=== PATIENT | male | born 1950 | race African-American/Black ===

== ENCOUNTER 2021-11-18 09:31 | Observation (INO) ==
[2021-11-18 09:42] VITALS: BMI 19.3
[2021-11-18] MEDS ORDERED: CATAPRES TAB 0.2 MG PO ONE (09:47)
--- NOTE | 2021-11-18 09:53 | DR.HTN ---
HPI Time Seen Time Seen by Provider: 11/18/21 09:45 HPI Comment HPI Comment: A 71 y/o male presenting today with non-specific c/o. He was here late night for nausea vomiting. The family states his BP was quite high (close to 200). I'm seeing SBP in the 140s. The pt. states he has a knnown hx. of HT[facility] but he no longer takes his [facility](s). He denies headaches, visual disturbances, chest pain or SOB. He had labs done last night and had a CXR also. Complaints Chief Complaint:: Pt here with elevated blood pressure, was seen last night for n/v and cough, BP was elevated at that time as well but pt did not tell anyone he was out of his BP meds. Pt states he has been out of meds for "about a year", [facility] d/t personal smoking habits that are not recognized by the goverment. COVID-19 Coronavirus risk:travel/contact w/high risk person: No Has patient experienced Coronavirus symptoms: No Source History Provided: Patient Mode of Arrival Mode of Arrival: EMS Timing Onset of Chief Complaint: 11/17/21 Severity What was the maximum recorded B/P?: 199/112 Context Circumstances: Ran out of Medication History of: Hypertension Treatment of HTN Prior to Arrival: No Rx for HTN meds and Noncompliant Associated Signs and Symptoms HTN Associated Signs and Symptoms: None PMH PMH Past Medical History: Yes Past Medical History: Anxiety, Depression, Hypertension and SD Past Medical History Comment: cancer, possibly in the neck/throat/thyroid, pt wa s unsure Past Surgical History: No Surgical History: Unknown Family History History of Family Medical Conditions: Yes Family Medical History: Diabetes Mellitus and Hypertension Social History Alcohol Use: None Do you use any recreational Drugs:: Yes (marijuana) Lives Where: Home Travel Risk Coronavirus risk:travel/contact w/high risk person: No Has patient experienced Coronavirus symptoms: No Infectious screening Have you traveled outside the country in the last 6 months?: No Isolation: Standard ROS Review of Systems Constitutional: No Symptoms Reported Eyes: No Symptoms Reported ENTM: No Symptoms Reported Respiratoy: No Symptoms Reported Cardiovascular: No Symptoms Reported Gastrointestinal/Abdominal: No Symptoms Reported Genitourinary: No Symptoms Reported Neurological: No Symptoms Reported Musculoskeletal: No Symptoms Reported Integumentary: No Symptoms Reported Hematologic/Lymphatic: No Symptoms Reported Endocrine: No Symptoms Reported Psychiatric: No Symptoms Reported PE Vital Signs Vitals: Temperature 97.9 F Pulse Rate 79 Respiratory Rate 16 Blood Pressure [Left Arm] 134/68 Blood Pressure 199/112 O2 Sat by Pulse Oximetry 100 General Limitations: No Limitations General Appearance: Alert and In No Apparent Distress Head Head Exam: Normal Inspection, Atraumatic and Normocephalic Eyes Eye exam: Normal Appearance and EOMI ENT ENT Exam: Normal Exam, Normal Oropharynx, Normal External Ear Exam and Mucous Membranes Moist Neck Neck Exam: Normal Inspection, Full ROM and Trachea Midline Chest Chest Inspection: Normal Inspection and Symmetric Chest Wall Rise Respiratory Respiratory Exam: Normal Lung Sounds Bilat Cardiovascular Cardiovascular Exam: Regular Rate, Normal Rhythm, Normal Heart Sounds, +S1 and +S2 Abdominal Exam Abdominal Exam: Normal Inspection, Normal Bowel Sounds and Soft Extremities Extremities Exam: Normal Inspection and Full ROM Back Back Exam: Normal Inspection and Full ROM Neurologic Neurological Exam: Alert and Oriented X3 Speech: Fluid Speech Psychiatric Psychiatric Exam: Normal Affect and Normal Mood Skin Skin Exam: Intact and Other (palpable port-a-cath in subcutaneous tissue inferior to the Rt. distal clavicle.) COURSE Treatment Treatment: A call was received in the ED from Dr. Calzada's Nurse informing that the pt's. family had called into the office and that Dr. Calzada requests that he be placed in-house under his service. Reevaluation 1st: Improved Education/Counseling Education/Counseling: Patient, Family, Education and Counseling Educated On: Treatment, Diagnosis, Prognosis and Needs for Follow Up ROR EKG Rate: 61 [place]: Normal Rhythm: NSR Block: None Hypertrophy: None ST: Normal Opioid Opioid Risk Tool Age (Placido box if 16-45): No History of Preadolescent Sexual Abuse: No Total: 0 Total Score Risk Category: Low Risk Copyright: Elkin GAONA predicting aberrant behaviors Diagnosis Discharge Problem: Hypertension, uncontrolled
[2021-11-18] MEDS ORDERED: CATAPRES TAB 0.2 MG ONE (09:57)
[2021-11-18] MEDS ORDERED: NORVASC TAB 5 MG PO ONE (11:25)
[2021-11-18] MEDS ORDERED: NORVASC TAB 5 MG ONE (11:34)
[2021-11-18] MEDS ORDERED: ZOFRAN INJ 4 MG VIAL ONE (13:55)
[2021-11-18] MEDS ORDERED: ZOFRAN INJ 4 MG VIAL IVP ONE (13:59)
[2021-11-18] MEDS ORDERED: ZESTRIL TAB 20 MG PO ONE (14:00)
--- NOTE | 2021-11-18 19:23 | CT ---
HISTORYblurred vision, severe headache, left sided weaknessSTUDYBRAIN W/O CONCOMPARISONNone.TECHNIQUEMultiple axial images of the head without contrast. Dose reduction techniques including Automated Exposure Control (AEC) and adjustment of mA and kV were utilized.FINDINGSAge related cortical atrophy and chronic small vessel ischemic changes. [No acute intraparenchymal hemorrhage or mass can be identified.] [No extra-axial fluid collections are seen.] [No alteration in the attenuation of the brain parenchyma can be identified to suggest acute or subacute ischemic change.] [The ventricular system is symmetric and nondilated.] [The extracranial structures are grossly unremarkable.]IMPRESSIONNo CT evidence of acute intracranial pathology. If clinically concerned for acute ischemia/infarction, MRI of the brain is more sensitive.Electronically signed by: RAUL DENNIS (Nov 18, 2021 19:23:24)
[2021-11-19 06:22] LABS: BASOPHILS % (AUTO) 0.3 % (0.2-1.0); EOSINOPHILS % (AUTO) 0.4 % (0.9-2.9); HEMATOCRIT 42.3 % (42.0-54.0); HEMOGLOBIN 13.8 g/dL (13.5-18.0); LYMPHOCYTES # (AUTO) 1.8 X10^3/uL (1.3-2.9); LYMPHOCYTES % (AUTO) 24.1 % (21.0-51.0); MEAN CORPUSCULAR HEMOGLOBIN 25.6 pg (27.0-34.0); MEAN CORPUSCULAR HGB CONC 32.6 g/dL (33.0-35.0); MEAN CORPUSCULAR VOLUME 78.5 fL (80.0-100.0); MEAN PLATELET VOLUME 10.1 fL (7.4-11.0); MONOCYTES # (AUTO) 0.7 x10^3/uL (0.3-0.8); MONOCYTES % (AUTO) 8.8 % (0.0-13.0); NEUTROPHILS % (AUTO) 66.4 % (42.0-75.0); RED BLOOD COUNT 5.39 X10^6/uL (4.7-6.0); RED CELL DISTRIBUTION WIDTH 15.4 % (11.6-16.5); WHITE BLOOD COUNT 7.5 X10^3/uL (3.6-10.0)
[2021-11-19 06:44] LABS: ALANINE AMINOTRANSFERASE 12 Units/L (12-78); ALBUMIN 3.4 g/dL (3.4-5.0); ALKALINE PHOSPHATASE 94 Units/L (46-116); ASPARTATE AMINO TRANSFERASE 19 Units/L (15-37); BLOOD UREA NITROGEN 9 mg/dL (7-18); CARBON DIOXIDE 28.9 mmol/L (21-32); CHLORIDE 103 mmol/L (98-107); CREATININE 1.01 mg/dL (0.70-1.30); SODIUM 141 mmol/L (136-145); TOTAL PROTEIN 7.9 g/dL (6.4-8.2); eGFR NON BLACK RACES > 60 (>60)
[2021-11-19 07:01] LABS: GIANT PLATELET RARE; PLATELET MORPHOLOGY COMMENT ABNORMAL (NORMAL); TARGET CELLS PRESENT
[2021-11-19] MEDS ORDERED: ZESTRIL TAB 20 MG ONE (08:52)
[2021-11-19] MEDS ORDERED: NORVASC TAB 10 MG PO SCH (09:00)
[2021-11-19] MEDS ORDERED: ZESTRIL TAB 20 MG PO SCH (09:00)
[2021-11-19 10:50] VITALS: BP 135/104
--- NOTE | 2021-12-03 11:51 | DR.CARTERS ---
Short Stay Summary - Admission Date Date of Admission: 11/18/21 - Discharge Date Discharge Date: 11/19/21 - Admission Diagnoses (1) Hypertension, uncontrolled Status: Acute - Hospital Course Hospital Course: IS A 71 YEAR OLD BLACK MALE. HE IS A PATIENT OF THE [facility]. HE PRESENTED TO THE ER WITH COMPLAINTS OF ELEVATED BLOOD PRESSURE. HE WAS SEEN THE PREVIOUS NIGHT IN THE ER WELL FOR COMPLAINTS OF NAUSEA AND VOMITING. HIS BLOOD PRESSURE WAS ELEVATED AT THAT TIME WELL. PATIENT REPORTED THAT HE HAD BEEN OUT OF HIS BLOOD PRESSURE MEDICATIONS FOR ABOUT A YEAR. HE ALSO ADMITTED TO HEADACHE, BLURRED VISION, AND MILD LEFT SIDED WEAKNESS. HIS PMH INCLUDES HTN, ANXIETY, DEPRESSION, NH, AND CANCER. PATIENT WAS UNSURE OF WHAT TYPE OF CANCER. HE IS A DAILY USER OF [employer]. ON ARRIVAL TO THE ER, HIS VITALS WERE 97.9-79-16-100%-211/110. LABS WERE OBTAINED ON 11/17 DURING HIS ER VISIT. ABNORMAL LAB VALUES INCLUDED THE FOLLOWING: WBC 11.6, HGB 13.2, HCT 40.6, POTASSIUM 3.4, BUN 5, GLUCOSE 200, CALCIUM 8.3, ALT 10, ALBUMIN 3.2. COVID-19 NEGATIVE. A CHEST XRAY WAS OBTAINED ON 11/17 AND REVEALED: No acute cardiopulmonary findings. AN EKG WAS OBTAINED AND REVEALED: SINUS RHYTHM WITH HR 61. A BRAIN CT WAS OBTAINED AND REVEALED: Age related cortical atrophy and chronic small vessel ischemic changes. No acute intraparenchymal hemorrhage or mass can be identified. No extra-axial fluid collections are seen. No alteration in the attenuation of the brain parenchyma can be identified to suggest acute or subacute ischemic change. The ventricular system is symmetric and nondilated. The extracranial structures are grossly unremarkable. IN THE ER, HE WAS GIVEN CATAPRES 0.2MG PO X 1, NORVASC 5MG PO X 1, ZOFRAN 4MG IV X 1. BLOOD PRESSURE DECREASED TO 116/69. HE WAS ADMITTED TO THE HOSPITAL FOR FURTHER EVALUATION AND TREATMENT OF UNCONTROLLED HYPERTENSION. HE WAS STARTED ON AMLODIPINE 10MG PO DAILY, LISINOPRIL 20MG PO DAILY. OTHERWISE, WE PLANNED TO FOLLOW UP WITH AM LABS AND CONTINUE TO MONITOR. ON THE MORNING FOLLOWING ADMISSION, PATIENT WAS ALERT AND ORIENTED, LYING IN BED ON MORNING ROUNDS. HE DENIED CURRENT COMPLAINTS. ON EXAMINATION, HEART IS REGU LAR IN RATE AND RHYTHM. BILATERAL LUNGS CLEAR TO AUSCULTATION. ABDOMEN ROUND, SOFT, AND NON-TENDER WITH NORMAL BOWEL SOUNDS NOTED IN ALL QUADRANTS. HIS VITALS THIS MORNING WERE: 98.5-24-14-99-178/84. LABS WERE OBTAINED. HE REMAINED HEMODYNAMICALLY STABLE. HIS BLOOD PRESSURE REMAINED STABLE THROUGHOUT THE NIGHT AND MORNING. WE PLANNED FOR DISCHARGE. INSTRUCTIONS FOR MEDICATIONS AND FOLLOW UP WERE DISCUSSED WITH PATIENT. HE VERBALIZED UNDERSTANDING. PATIENT WILL BE DISCHARGED WITH NEW PRESCRIPTIONS FOR AMLODIPINE 10MG PO DAILY, ASPIRIN 325MG PO DAILY, LISINOPRIL 20MG PO DAILY, AND ROSUVASTATIN 10MG PO HS. HE WAS ADVISED TO FOLLOW UP IN OUR OFFICE ON 11/25/21. PATIENT DISCHARGED HOME WITH FAMILY IN STABLE CONDITION. TIME SPENT ON CLINICAL ASSESSMENT, REVIEWING LABS AND IMAGING, DECISION MAKING, DISCHARGE INSTRUCTIONS, PREPARING DISCHARGE PAPERS, AND DOCUMENTATION GREATER THAN 75 MINUTES. - Discharge Medications Discharge Medications: Home Medication List amlodipine 10 mg PO DAILY #30 tab 11/19/21 [Rx] aspirin [Ecotrin] 325 mg PO DAILY #30 tab 11/19/21 [Rx] lisinopril 20 mg PO DAILY #30 tab 11/19/21 [Rx] rosuvastatin 10 mg PO HS #30 tab 11/19/21 [Rx] Prescriptions: amlodipine Best Calzada aspirin [Ecotrin] Best Calzada lisinopril Best Calzada rosuvastatin Best Calzada - Discharge Plan Disposition: 01 HOME, SELF-CARE Condition: Stable Prescriptions: amlodipine 10 mg PO DAILY #30 tab aspirin [Ecotrin] 325 mg PO DAILY #30 tab lisinopril 20 mg PO DAILY #30 tab rosuvastatin 10 mg PO HS #30 tab - Follow up/Referrals Follow up/Referrals: Best Calzada [STAFF PHYSICIAN] - 11/25/21 1:00 pm - Instructions Instructions: How to Take Your Blood Pressure, [id number], Coronary Artery Disease, Male, Hypertension, Adult, Qnva-ax-Aats, Form - Blood Pressure Record Sheet, Managing Your Hypertension, Hypertension Additional Instructions: DIET TOLERATED. ACTIVITY TOLERATED. Forms: Excuse From Work or School, Precautions for COVID19, [facility], Patient Portal, Social Distancing
== END 2021-11-19 12:30 | disposition home or self-care (01) ==
LOC: ER 09:31 → MED/SURG 09:31
PROVIDERS: ADMIT Internal Medicine; ATTEND Internal Medicine
DX: R94.31 Abnormal electrocardiogram [ECG] [EKG]; R53.1 Weakness; R26.2 Difficulty in walking, not elsewhere classified; F12.10 Cannabis abuse, uncomplicated; R51.9 Headache, unspecified; Z91.14 Patient's other noncompliance with medication regimen; Z20.822 Contact with and (suspected) exposure to COVID-19; I10 Essential (primary) hypertension; F41.8 Other specified anxiety disorders

== ENCOUNTER 2023-07-20 16:44 | Inpatient (IN) ==
--- NOTE | 2023-07-20 17:22 | DR.EXTPAIN ---
HPI Time seen Time Seen by Provider: 07/20/23 17:22 PCP Primary Care Physician: Zheng Complaint/Symptoms Chief Complaint Doctor Comments: 73-year-old male brought in for evaluation. Fell yesterday, having left-sided hip, left upper leg pain since then. Denies any head injury, loss of conscious or neck pain. Pain worse with movement of the left leg, ambulation. Nothing makes it better. Patient has had difficulty swallowing over the past several weeks. Was seen here last week, diagnosed with thrush and treated with nystatin. Patient has an appointment at [facility] with a physician for his swallowing difficulties, but it is 2 weeks away. Has had decreased p.o. intake, having a 20 pound weight loss over the last several weeks. Patient with a distant history of right neck carcinoma. Chief Complaint:: Patient had a fall yesterday. Today complains pain left hip, generalized weakness, producing a white phelm, and recent weight loss COVID-19 Coronavirus risk:travel/contact w/high risk person: No Has patient experienced Coronavirus symptoms: No Nurses notes reviewed Nurses Notes Review: Yes Source History Provided: Patient and Family Member Mode of arrival Mode of Arrival: EMS Timing Onset of Chief Complaint: 07/19/23 PMH PMH Past Medical History: Yes Past Medical History: Coronary Artery Disease, Dyslipidemia, Hypertension and PA Past Medical History Comment: Prostate CA, history of neck carcinoma Past Surgical History: Yes Surgical History: No History Family History History of Family Medical Conditions: Yes Family Medical History: Diabetes Mellitus, Heart Failure and Hypertension Social History Does patient currently use any type of tobacco product: Yes Have you used tobacco products in the last 12 months: Yes Type of Tobacco Use: Cigarettes Does any household member use tobacco: No Alcohol Use: None Do you use any recreational Drugs:: No Lives With: Alone Lives Where: Home Travel Risk Coronavirus risk:travel/contact w/high risk person: No Has patient experienced Coronavirus symptoms: No Infectious screening In the last 2 months have you had wt loss of >10#?: NO Have you had fever, night sweats or hemotysis?: No Have you traveled outside the country in the last 6 months?: No Isolation: Standard ROS Review of Systems Constitutional: Malaise and Weakness Eyes: No Symptoms Reported ENTM: No Symptoms Reported Respiratoy: No Symptoms Reported Cardiovascular: No Symptoms Reported Gastrointestinal/Abdominal: Nausea Genitourinary: No Symptoms Reported Neurological: Weakness Musculoskeletal: No Symptoms Reported Integumentary: No Symptoms Reported Hematologic/Lymphatic: No Symptoms Reported All Other Systems: Reviewed and Negative PE Vital Signs Vitals: Vital Signs Temperature 98.8 F Pulse Rate 80 Pulse Rate 90 Pulse Rate 91 Pulse Rate 93 Pulse Rate 94 Pulse Rate 89 Respiratory Rate 16 Blood Pressure 162/94 O2 Sat by Pulse Oximetry 96 O2 Sat by Pulse Oximetry 92 O2 Sat by Pulse Oximetry 93 O2 Sat by Pulse Oximetry 93 O2 Sat by Pulse Oximetry 94 O2 Sat by Pulse Oximetry 94 General General Appearance: Alert and In No Apparent Distress Head Head Exam: Normal Inspection, Atraumatic and Normocephalic Eyes Eye exam: PERRL and EOMI ENT ENT Exam: Mucous Membranes Moist and Other (Has scattered white spots of his tongue) Neck Neck Exam: Normal Inspection and Full ROM; negative Tenderness Respiratory Respiratory Exam: Normal Lung Sounds Bilat; negative Accessory Muscle Use or Respiratory Distress Cardiovascular Cardiovascular Exam: Regular Rate, Normal Rhythm and Normal Heart Sounds Abdominal Exam Abdominal Exam: Normal Bowel Sounds and Soft; negative Tenderness, Guarding or Rebound Neurological Neurological Exam: Alert, Oriented X3 and CN II-XII Intact; negative Motor Sensory Deficit Skin Skin Exam: Warm and Dry Other Exam Other Exam: L hip - + tender of left lateral hip, distal left femur. No obvious deformity. Good ROM, with slight discomfort. COURSE Treatment Treatment: 73-year-old male with decreased p.o. intake over the past several days, having increasing weakness. Family would like admitted. Work-up initiated. Does have ketones in the urine, though his renal numbers are not terrible have some renal insufficiency. Patient was given IV fluids. Recommend admission for observation to continue IV fluids, Dr. Ibarra accepted the admission. ROR Labs Reviewed Laboratory Results Reviewed?: Yes 07/21/23 05:54 07/21/23 05:54 Laboratory: WBC 7.4 X10^3/uL (3.6-10.0) 07/20/23 17:42 RBC 5.42 X10^6/uL (4.7-6.0) 07/20/23 17:42 Hgb 13.0 g/dL (13.5-18.0) L 07/20/23 17:42 Hct 41.1 % (42.0-54.0) L 07/20/23 17:42 MCV 75.8 fL (80.0-100.0) L 07/20/23 17:42 MCH 23.9 pg (27.0-34.0) L 07/20/23 17:42 MCHC 31.6 g/dL (33.0-35.0) L 07/20/23 17:42 RDW 16.5 % (11.6-16.5) 07/20/23 17:42 Plt Count 242 X10^3/uL (150.0-450.0) 07/20/23 17:42 MPV 8.1 fL (7.4-11.0) 07/20/23 17:42 Neut % (Auto) 76.0 % (42.0-75.0) H 07/20/23 17:42 Lymph % (Auto) 13.9 % (21.0-51.0) L 07/20/23 17:42 [place] % (Auto) 8.0 % (0.0-13.0) 07/20/23 17:42 Eos % (Auto) 1.4 % (0.9-2.9) 07/20/23 17:42 Baso % (Auto) 0.7 % (0.2-1.0) 07/20/23 17:42 Neut # (Auto) 5.7 x10^3/uL (2.2-4.8) H 07/20/23 17:42 Lymph # (Auto) 1.0 X10^3/uL (1.3-2.9) L 07/20/23 17:42 [place] # (Auto) 0.6 x10^3/uL (0.3-0.8) 07/20/23 17:42 Eos # (Auto) 0.1 x10^3/uL (0.0-0.2) 07/20/23 17:42 Baso # (Auto) 0.0 X10^3/uL (0.0-0.1) 07/20/23 17:42 Absolute Nucleated RBC 0.1 /100WBC 07/20/23 17:42 Sodium 138 mmol/L (136-145) 07/20/23 17:42 Corrected Sodium TNP 07/20/23 17:42 Potassium 4.4 mmol/L (3.5-5.1) 07/20/23 17:42 Chloride 96 mmol/L (98-107) L 07/20/23 17:42 Carbon Dioxide 30.6 mmol/L (21-32) 07/20/23 17:42 BUN 26 mg/dL (7-18) H 07/20/23 17:42 Creatinine 1.44 mg/dL (0.70-1.30) H 07/20/23 17:42 Est GFR (MDRD) Af Amer > 60 (>60) 07/20/23 17:42 Est GFR (MDRD) Non-Af 51 (>60) L 07/20/23 17:42 Glucose 104 mg/dL (65-99) H 07/20/23 17:42 Calcium 9.5 mg/dL (8.5-10.1) 07/20/23 17:42 Corrected Calcium TNP 07/20/23 17:42 Total Bilirubin 0.60 mg/dL (0.2-1.0) 07/20/23 17:42 AST 16 Units/L (15-37) 07/20/23 17:42 ALT 14 Units/L (12-78) 07/20/23 17:42 Alkaline Phosphatase 78 Units/L (46-116) 07/20/23 17:42 Total Protein 8.0 g/dL (6.4-8.2) 07/20/23 17:42 Albumin 3.5 g/dL (3.4-5.0) 07/20/23 17:42 Globulin 4.5 g/dL (2.5-4.5) 07/20/23 17:42 Albumin/Globulin Ratio 0.8 Ratio (1.1-2.1) L 07/20/23 17:42 Lipase 42 Units/L (73-393) L 07/20/23 17:42 Specimen Type Catherized urine 07/20/23 19:25 Urine Color [place] (YELLOW) 07/20/23 19:25 Urine Appearance Clear (CLEAR) 07/20/23 19:25 Urine pH 6.0 (5.0 - 8.0) 07/20/23 19:25 Ur Specific [place] 1.025 (1.000-1.030) 07/20/23 19:25 Urine Protein 2+ (NEGATIVE) 07/20/23 19:25 Urine Glucose (UA) Negative (NEGATIVE) 07/20/23 19:25 Urine Ketones 4+ (NEGATIVE) 07/20/23 19:25 Urine Blood 2+ (NEGATIVE) 07/20/23 19:25 Urine Nitrite Negative (NEGATIVE) 07/20/23 19:25 Urine Bilirubin 1+ (NEGATIVE) 07/20/23 19:25 Urine Urobilinogen 1+ (NORMAL) 07/20/23 19:25 Ur Leukocyte Esterase 1+ (NEGATIVE) 07/20/23 19:25 Urine RBC 3-5 /HPF (0-3) A 07/20/23 19:25 Urine WBC 0-2 /HPF (0-5) 07/20/23 19:25 Ur Squamous Epith Cells Few /HPF (NEGATIVE) 07/20/23 19:25 Urine Bacteria Trace /HPF (NEGATIVE) 07/20/23 19:25 Hyaline Casts Moderate /LPF (NEGATIVE) 07/20/23 19:25 Urine Mucus Moderate /HPF (NEGATIVE) 07/20/23 19:25 Ur Culture Indicated? No/not indicated 07/20/23 19:25 Opioid Opioid Risk Tool Age (Placido box if 16-45): No History of Preadolescent Sexual Abuse: No Total: 0 Total Score Risk Category: Low Risk Copyright: Elkin GAONA predicting aberrant behaviors Discharge Plan Diagnosis Discharge Problem: Volume depletion, Generalized weakness Discharge Plan Patient Disposition: 09 ADMITTED INPATIENT Condition: Stable
[2023-07-20] MEDS ORDERED: NS 1,000 ML IV 1,000 ML IV ONE (17:33)
[2023-07-20] MEDS ORDERED: NS 1,000 ML IV 1,000 ML ONE (17:47)
[2023-07-20 17:49] LABS: BASOPHILS % (AUTO) 0.7 % (0.2-1.0); EOSINOPHILS # (AUTO) 0.1 x10^3/uL (0.0-0.2); EOSINOPHILS % (AUTO) 1.4 % (0.9-2.9); HEMATOCRIT 41.1 % (42.0-54.0); LYMPHOCYTES % (AUTO) 13.9 % (21.0-51.0); MEAN CORPUSCULAR HEMOGLOBIN 23.9 pg (27.0-34.0); MEAN CORPUSCULAR HGB CONC 31.6 g/dL (33.0-35.0); MEAN CORPUSCULAR VOLUME 75.8 fL (80.0-100.0); MEAN PLATELET VOLUME 8.1 fL (7.4-11.0); MONOCYTES # (AUTO) 0.6 x10^3/uL (0.3-0.8); NEUTROPHILS # (AUTO) 5.7 x10^3/uL (2.2-4.8); PLATELET COUNT 242 X10^3/uL (150.0-450.0); RED BLOOD COUNT 5.42 X10^6/uL (4.7-6.0); RED CELL DISTRIBUTION WIDTH 16.5 % (11.6-16.5); WHITE BLOOD COUNT 7.4 X10^3/uL (3.6-10.0)
[2023-07-20 18:14] LABS: LIPASE 42 Units/L (73-393)
[2023-07-20 18:33] LABS: ALANINE AMINOTRANSFERASE 14 Units/L (12-78); ALBUMIN 3.5 g/dL (3.4-5.0); ALKALINE PHOSPHATASE 78 Units/L (46-116); ASPARTATE AMINO TRANSFERASE 16 Units/L (15-37); BLOOD UREA NITROGEN 26 mg/dL (7-18); CALCIUM 9.5 mg/dL (8.5-10.1); CARBON DIOXIDE 30.6 mmol/L (21-32); CHLORIDE 96 mmol/L (98-107); CREATININE 1.44 mg/dL (0.70-1.30); GLUCOSE 104 mg/dL (65-99); POTASSIUM 4.4 mmol/L (3.5-5.1); SODIUM 138 mmol/L (136-145); eGFR NON BLACK RACES 51 (>60)
[2023-07-20 19:32] LABS: BILIRUBIN,URINE 1+ (NEGATIVE); BLOOD/HEMOGLOBIN,URINE 2+ (NEGATIVE); GLUCOSE, URINE NEGATIVE (NEGATIVE); KETONES,URINE 4+ (NEGATIVE); LEUKOCYTE ESTERASE ,URINE 1+ (NEGATIVE); NITRITES,URINE NEGATIVE (NEGATIVE); PROTEIN,URINE 2+ (NEGATIVE); UROBILINOGEN,URINE 1+ (NORMAL)
[2023-07-20 19:33] LABS: APPEARANCE,URINE CLEAR (CLEAR); COLOR,URINE AMBER (YELLOW)
[2023-07-20 19:45] LABS: BACTERIA,URINE TRACE /HPF (NEGATIVE); HYALINE CASTS, URINE MODERATE /LPF (NEGATIVE); SQUAMOUS EPITHELIAL CELL,UR FEW /HPF (NEGATIVE)
[2023-07-20] MEDS ORDERED: CONSULT PHARMACY - POTASSIUM & MAGNESIUM XX SCH (21:19)
[2023-07-20] MEDS ORDERED: D5W 1,000 ML IV 0 ML IV ONE (21:40)
[2023-07-20] MEDS: D5 NS 1,000 ML IV 1,000 ML IV SCH (21:41)
[2023-07-20] MEDS ORDERED: D5 NS 1,000 ML IV 1,000 ML IV ONE (21:44)
--- NOTE | 2023-07-21 00:06 | RAD ---
EXAM:PELVISHISTORY:FallCOMPARISON: .br.br.br.br.br dislocation.There is no evidence of an embedded radiopaque foreign body.Degenerative changes are presentIMPRESSION:1. There is no evidence of fracture or joint dislocation.THIS IS AN ELECTRONICALLY VERIFIED FINAL [id number]/21/2023 12:02 AM - Electronically signed by Jesu De Guzman MD
--- NOTE | 2023-07-21 00:06 | RAD ---
EXAM:FRONTAL VIEW CHEST X-RAYHISTORY:Status post fallCOMPARISON:No prior studiesFINDINGS:A right chest port is notedNo focal consolidation is seen.The heart size is within normal limits.The mediastinum is unremarkable.There is no evidence of pleural effusion or gross pneumothorax.The trachea is midline.IMPRESSION:1. No focal consolidation is seen.2. The heart size is normal.THIS IS AN ELECTRONICALLY VERIFIED FINAL [id number]/21/2023 12:02 AM - Electronically signed by Jesu De Guzman MD
--- NOTE | 2023-07-21 00:40 | RAD ---
EXAM:FEMUR, LEFTHISTORY:FallCOMPARISON:None. r.br.br dislocation.There is no evidence of an embedded radiopaque foreign body.IMPRESSION:1. There is no evidence of fracture or joint dislocation.THIS IS AN ELECTRONICALLY VERIFIED FINAL [id number]/21/2023 12:36 AM - Electronically signed by Jesu De Guzman MD
[2023-07-21] MEDS: D5 NS 1,000 ML IV 1,000 ML IV SCH ×3 (05:05→21:41)
[2023-07-21 06:37] LABS: BASOPHILS % (AUTO) 0.8 % (0.2-1.0); EOSINOPHILS # (AUTO) 0.2 x10^3/uL (0.0-0.2); HEMATOCRIT 35.5 % (42.0-54.0); HEMOGLOBIN 11.4 g/dL (13.5-18.0); LYMPHOCYTES # (AUTO) 1.1 X10^3/uL (1.3-2.9); LYMPHOCYTES % (AUTO) 19.5 % (21.0-51.0); MEAN CORPUSCULAR HEMOGLOBIN 24.1 pg (27.0-34.0); MEAN CORPUSCULAR VOLUME 75.5 fL (80.0-100.0); MEAN PLATELET VOLUME 8.7 fL (7.4-11.0); MONOCYTES # (AUTO) 0.7 x10^3/uL (0.3-0.8); MONOCYTES % (AUTO) 12.1 % (0.0-13.0); NEUTROPHILS # (AUTO) 3.7 x10^3/uL (2.2-4.8); NEUTROPHILS % (AUTO) 64.6 % (42.0-75.0); PLATELET COUNT 197 X10^3/uL (150.0-450.0); RED BLOOD COUNT 4.71 X10^6/uL (4.7-6.0); RED CELL DISTRIBUTION WIDTH 16.3 % (11.6-16.5); WHITE BLOOD COUNT 5.8 X10^3/uL (3.6-10.0)
[2023-07-21 06:51] LABS: ALANINE AMINOTRANSFERASE 10 Units/L (12-78); ALBUMIN 2.7 g/dL (3.4-5.0); ALKALINE PHOSPHATASE 61 Units/L (46-116); ASPARTATE AMINO TRANSFERASE 17 Units/L (15-37); BLOOD UREA NITROGEN 22 mg/dL (7-18); CALCIUM 8.7 mg/dL (8.5-10.1); CHLORIDE 104 mmol/L (98-107); COR CA(FOR HYPOALB) 9.7 mg/dL (8.5-10.1); COR NA(FOR HYPERGLY) 140 mmol/L (136-145); CREATININE 1.04 mg/dL (0.70-1.30); GLUCOSE 113 mg/dL (65-99); POTASSIUM 4.1 mmol/L (3.5-5.1); SODIUM 140 mmol/L (136-145); eGFR NON BLACK RACES > 60 (>60)
[2023-07-21] MEDS ORDERED: OMNIPAQUE 350 mg/mL 100 mL BTL 100 ML ONE (11:14)
--- NOTE | 2023-07-21 12:51 | DR.H&P ---
H&P - History & Physical for Day of: H&P Date: 07/20/23 - Chief Complaint Chief Complaint: LEG AND HIP PAIN FOLLOWING FALL, WEAKNESS, COUGH - History of Present Illness History of Present Illness: IS A 73 YEAR OLD B/M. HE IS A PATIENT OF OURS. HE HAS A PMH OF CAD, DYSLIPIDEMIA, HTN, [place]. ADDITIONALLY, HE REPORTS A PAST HX OF CANCER OF THE NECK. HE PRESENTED TO THE ER WITH COMPLAINTS OF GENERALIZED WEAKNESS, LEFT SIDED HIP PAIN, AND LEFT UPPER LEG PAIN AFTER FALLING YESTERDAY. HE DENIES HEAD INJURY, LOSS OF CONSCIOUSNESS, OR NECK PAIN. HE REPORTS THAT LEG PAIN IS WORSE WITH MOVEMENT AND AMBULATION. ADDITIONALLY, HE COMPLAINS OF COUGH, WEIGHT LOSS, AND DIFFICULTY SWALLOWING. PATIENT WAS DIAGNOSED AND TREATED FOR THRUSH WITH NYSTATIN LAST WEEK. COUGH IS PRODUCTIVE OF WHITE SPUTUM. ON ARRIVAL TO THE HOSPITAL, HIS VITALS WERE: 9 8.8-89-16-94%-162/94. LABS WERE OBTAINED. WBC 7.4, RBC 5.42, HGB 13.0, HCT 41.1, PLT COUNT 242, SODIUM 138, POTASSIUM 4.4, CHLORIDE 96, BUN 26, CREATININE 1.44, GLUCOSE 104, CALCIUM 9.5, AST 16, ALT 14, ALK PHOS 78, TOTAL PROTEIN 8.0, ALBUMIN 3.5, LIPASE 42, TOTAL PSA 1.79. A URINALYSIS WAS OBTAINED AND REVEALED: WBC 0-2, RBC 3-5, LEUKOCYTES 1+, BACTERIA TRACE, BLOOD 2+. A CHEST XRAY WAS OBTAINED AND REVEALED: 1. No focal consolidation is seen. 2. The heart size is normal. A LEFT FEMUR XRAY WAS OBTAINED AND REVEALED: 1. There is no evidence of fracture or joint dislocation. A PELVIS XRAY WAS OBTAINED AND REVEALED: 1. There is no evidence of fracture or joint dislocation. IN THE ER, PATIENT WAS GIVEN A NORMAL SALINE BOLUS. DECISION WAS MADE TO ADMIT PATIENT TO THE HOSPITAL INPATIENT STATUS FOR FURTHER EVALUATION AND TREATMENT OF DEHYDRATION, BRONCHITIS, DECONDITIONING, GENERALIZED WEAKNESS, DYSPHAGIA, WEIGHT LOSS, AND RECENT FALL. HE WAS STARTED ON D5NS AT 100 ML/HR, ROCEPHIN 1G IV DAILY, NYSTATIN 5ML PO QID, NORCO 7.5/325MG QID PRN. WE WILL REVIEW HIS HOME MEDICATIONS WHEN THEY ARE AVAILABLE TO US. WE WILL OBTAIN AN ABDOMEN/PELVIS CT WITH CONTRAST, CHEST CT WITH CONTRAST, AND WILL CONSULT , GENERAL SURGEON, DUE TO DYSPHAGIA. WE WILL HAVE PHYSICAL AND OCCUPATIONAL THERAPY EVALUATE HIM. OTHERWISE, WE WILL FOLLOW-UP WITH AM LABS AND CONTINUE TO MONITOR. TIME SPENT ON CLINICAL ASSESSMENT, REVIEWING LABS AND IMAGING, DECISION MAKING, AND DOCUMENTATION GREATER THAN 75 MINUTES. - Past Medical History Past Medical History: GA, Coronary Artery Disease, Hypertension, Dyslipidemia - Past Surgical History Surgical History: No History - Family History Family Medical History: Diabetes Mellitus, Heart Failure, Hypertension - Social History Does patient currently use any type of tobacco product: Yes Have you used tobacco products in the last 12 months: Yes Type of Tobacco Use: Cigarettes Does any household member use tobacco: No Alcohol Use: None Drug Use: None - Review of Systems Constitutional: Weakness. denies: Fever, Chills Eyes: No Symptoms Reported ENT: No Symptoms Reported Respiratory: See HPI, Cough, Sputum Cardiovascular: No Symptoms Reported Gastrointestinal: Nausea Genitourinary: No Symptoms Reported Musculoskeletal: No Symptoms Reported Skin: No Symptoms Reported Neurological: Weakness - Physical Exam Vital Signs: Vital Signs Temperature 97.7 F Temperature 98.3 F Pulse Rate [Left Radial] 65 Pulse Rate [Left Radial] 92 Respiratory Rate 20 Respiratory Rate 20 Blood Pressure [Left Arm] 151/85 Blood Pressure [Left Arm] 134/96 O2 Sat by Pulse Oximetry 100 O2 Sat by Pulse Oximetry 100 Oriented: Normal Eyes: Normal Ear: Normal Nose: Normal Throat: Normal Respiratory: Diminished Throughout Cardiovascular: Normal : Normal Auscultation: Bowel Sounds: Normal Palpation: Normal Tenderness: Normal Skin: Normal Musculoskeletal: Normal Psychiatric: Normal Mood Description: Calm Affect: Normal Speech Pattern: Clear - Assessment/Plan (1) Dehydration Status: Acute Plan: ADMIT, D5NS AT 100 ML/HR, ROCEPHIN 1G IV DAILY, NYSTATIN 5ML PO QID, NORCO 7.5/325MG QID PRN. REVIEW HOME MEDS (2) Acute bronchitis Qualifiers: Bronchitis organism: unspecified organism Qualified Code(s): J20.9 - Acute bronchitis, unspecified Status: Acute (3) Physical deconditioning Status: Acute Plan: PT/OT (4) Generalized weakness Status: Acute (5) Dysphagia Qualifiers: Dysphagia type: unspecified Qualified Code(s): R13.10 - Dysphagia, unspecified Status: Acute Plan: CONSULT GENERAL SURGERY FOR POSSIBLE EGD (6) Weight loss Status: Acute Plan: OBTAIN ABDOMEN/PLEVIS CT WITH CONTRAST AND CHEST CT WITH CONTRAST. OBTAIN CEA, PSA, AND CA 19-9 LEVELS (7) CAD (coronary artery disease) Qualifiers: Coronary Disease-Associated Artery/Lesion type: [place] artery [place] vs. transplanted heart: [place] heart Associated angina: unspecified whether angina present Qualified Code(s): I25.10 - Atherosclerotic heart disease of [place] coronary artery without angina pectoris Status: Chronic (8) Dyslipidemia Status: Chronic (9) Hypertension Qualifiers: Hypertension type: primary hypertension Qualified Code(s): I10 - Essential (primary) hypertension Status: Chronic - Allergies Allergies/Adverse Reactions: Allergies Allergy/AdvReac Type Severity Reaction Status Date / Time lisinopril Allergy Verified 11/19/21 10:21 - Medications Home Medications: Home Medications Medication Instructions Recorded Confirmed amlodipine 10 mg tablet (Norvasc) 10 mg PO BID 04/17/22 04/17/22 aspirin 325 mg tablet 325 mg PO DAILY 04/17/22 04/17/22 rosuvastatin 5 mg tablet (Crestor) 5 mg PO HS 04/17/22 04/17/22 hydrocodone 7.5 mg-acetaminophen 1 tab PO BID PRN 07/20/23 07/20/23 325 mg tablet Previous Rx's Medication Instructions Recorded hydrocodone 7.5 mg-acetaminophen 1 tab PO BID PRN pain #14 tabs 07/08/23 325 mg tablet nystatin 100,000 unit/mL oral 5 ml PO QID THRUSH #140 mL 07/08/23 suspension ondansetron 4 mg disintegrating 4 mg PO Q8H PRN nausea and 07/08/23 tablet vomiting #20 tabs
[2023-07-21] MEDS: NYSTATIN SUSP PO SCH ×3 (13:00→20:07)
[2023-07-21] MEDS: ROCEPHIN VIAL 1 GRAM 1 G in NS 100 ML IV 100 ML IV SCH (13:00)
--- NOTE | 2023-07-21 15:39 | CT ---
EXAM:CHEST WITH CONTRASTHISTORY:COUGH, WT LOSS, SOB;COMPARISON:Chest radiograph 07/20/2023, chest CT 04/17/2022TECHNIQUE:Multiple CT axial images of the chest were obtained with IV contrast. Coronal and sagittal images were reconstructed. Dose reduction techniques included Automated Exposure Control (AEC) and adjustment of mA and kV.FINDINGS:The heart is normal in size. The pulmonary artery and aorta have a normal caliber. The previously described pulmonary emboli in 2021 are not seen today. No mediastinal mass or significant lymphadenopathy.The thyroid has a normal size and configuration. No axillary mass or significant axillary lymphadenopathy is identified.The lungs are well inflated with no pneumonia or pleural effusion. Few tiny lung nodules are stable. For example see lateral right lung image 42 series 3.Limited images of the upper abdomen show no significant abnormality.No significant bone abnormality.IMPRESSION:1. No acute findingsTHIS IS AN ELECTRONICALLY VERIFIED FINAL [id number]/2023 3:34 PM - Electronically signed by Ernst Steele MD
--- NOTE | 2023-07-21 15:43 | CT ---
EXAM:ABDCMEN/PELVIS WITH CONHISTORY:COUGH, WT LOSS, SOB;COMPARISON:NoneTECHNIQUE:Multiple CT axial images of the abdomen and pelvis were obtained with IV contrast. Coronal and sagittal images were reconstructed. Dose reduction techniques included Automated Exposure Control (AEC) and adjustment of mA and kV.FINDINGS:The lung bases are clear. Heart size is normal.The liver is normal in size and configuration. The gallbladder has no inflammation around it. The spleen is normal in size and shape.The adrenal glands are normal. The pancreas is normal.Renal enhancement is uniform and symmetric with no solid mass. There is no hydronephrosis or significant perirenal edema. The bladder is normally distended. It has no wall thickening or perivesical edema.The bowel is not dilated. There is no wall thickening in the bowel or edema around the bowel.Degenerative changes are present in the thoracic spine.IMPRESSION:1. No acute findings or significant abnormalityTHIS IS AN ELECTRONICALLY VERIFIED FINAL [id number]/21/2023 3:40 PM - Electronically signed by Ernst Steele MD
[2023-07-22] MEDS: D5 NS 1,000 ML IV 1,000 ML IV SCH ×4 (00:18→20:25)
[2023-07-22] MEDS ORDERED: HIBICLENS WASH EXT ONE (02:09)
[2023-07-22 05:28] LABS: BASOPHILS # (AUTO) 0.1 X10^3/uL (0.0-0.1); BASOPHILS % (AUTO) 0.8 % (0.2-1.0); EOSINOPHILS # (AUTO) 0.3 x10^3/uL (0.0-0.2); EOSINOPHILS % (AUTO) 4.1 % (0.9-2.9); HEMATOCRIT 36.2 % (42.0-54.0); HEMOGLOBIN 11.6 g/dL (13.5-18.0); LYMPHOCYTES # (AUTO) 1.3 X10^3/uL (1.3-2.9); LYMPHOCYTES % (AUTO) 19.5 % (21.0-51.0); MEAN CORPUSCULAR HEMOGLOBIN 24.4 pg (27.0-34.0); MEAN CORPUSCULAR HGB CONC 32.1 g/dL (33.0-35.0); MEAN PLATELET VOLUME 8.8 fL (7.4-11.0); MONOCYTES # (AUTO) 0.7 x10^3/uL (0.3-0.8); MONOCYTES % (AUTO) 10.5 % (0.0-13.0); NEUTROPHILS # (AUTO) 4.2 x10^3/uL (2.2-4.8); NEUTROPHILS % (AUTO) 65.1 % (42.0-75.0); PLATELET COUNT 176 X10^3/uL (150.0-450.0); RED BLOOD COUNT 4.76 X10^6/uL (4.7-6.0); RED CELL DISTRIBUTION WIDTH 16.9 % (11.6-16.5); WHITE BLOOD COUNT 6.4 X10^3/uL (3.6-10.0)
[2023-07-22 06:02] LABS: ALANINE AMINOTRANSFERASE 14 Units/L (12-78); ALBUMIN 2.8 g/dL (3.4-5.0); ALKALINE PHOSPHATASE 63 Units/L (46-116); ASPARTATE AMINO TRANSFERASE 19 Units/L (15-37); BLOOD UREA NITROGEN 7 mg/dL (7-18); CALCIUM 8.5 mg/dL (8.5-10.1); CARBON DIOXIDE 31.3 mmol/L (21-32); CHLORIDE 102 mmol/L (98-107); COR CA(FOR HYPOALB) 9.5 mg/dL (8.5-10.1); CREATININE 0.87 mg/dL (0.70-1.30); GLUCOSE 101 mg/dL (65-99); POTASSIUM 3.7 mmol/L (3.5-5.1); SODIUM 139 mmol/L (136-145); TOTAL PROTEIN 7.2 g/dL (6.4-8.2); eGFR NON BLACK RACES > 60 (>60)
[2023-07-22] MEDS ORDERED: CONSULT PHARMACY - POTASSIUM & MAGNESIUM XX SCH ×2 (07:00)
[2023-07-22] MEDS ORDERED: K-DUR TAB 20 MEQ PO SCH ×2 (09:00→21:00)
[2023-07-22] MEDS ORDERED: MAG-OX TAB PO SCH (09:00)
[2023-07-22] MEDS ORDERED: DIPRIVAN VIAL 20 ML ONE (09:09)
[2023-07-22] MEDS ORDERED: NS 1,000 ML IV 1,000 ML ONE (09:11)
[2023-07-22] MEDS: NYSTATIN SUSP PO SCH ×4 (09:40→20:24)
[2023-07-22] MEDS: ROCEPHIN VIAL 1 GRAM 1 G in NS 100 ML IV 100 ML IV SCH (09:40)
[2023-07-22] MEDS: PROTONIX INJ 40 MG VIAL IVP SCH ×2 (10:00→20:24)
[2023-07-22] MEDS: CARAFATE PO SCH ×2 (13:53→21:13)
[2023-07-22] MEDS: MAG-OX TAB PO SCH (20:24)
[2023-07-23] MEDS: D5 NS 1,000 ML IV 1,000 ML IV SCH (05:14)
[2023-07-23] MEDS: CARAFATE PO SCH ×3 (05:14→22:50)
[2023-07-23 06:09] LABS: BASOPHILS % (AUTO) 0.7 % (0.2-1.0); EOSINOPHILS # (AUTO) 0.2 x10^3/uL (0.0-0.2); HEMATOCRIT 32.6 % (42.0-54.0); HEMOGLOBIN 10.3 g/dL (13.5-18.0); LYMPHOCYTES # (AUTO) 0.8 X10^3/uL (1.3-2.9); MEAN CORPUSCULAR HEMOGLOBIN 23.9 pg (27.0-34.0); MEAN CORPUSCULAR HGB CONC 31.7 g/dL (33.0-35.0); MEAN CORPUSCULAR VOLUME 75.5 fL (80.0-100.0); MEAN PLATELET VOLUME 8.9 fL (7.4-11.0); MONOCYTES # (AUTO) 0.6 x10^3/uL (0.3-0.8); MONOCYTES % (AUTO) 10.7 % (0.0-13.0); NEUTROPHILS # (AUTO) 4.2 x10^3/uL (2.2-4.8); NEUTROPHILS % (AUTO) 71.6 % (42.0-75.0); PLATELET COUNT 183 X10^3/uL (150.0-450.0); RED BLOOD COUNT 4.32 X10^6/uL (4.7-6.0); RED CELL DISTRIBUTION WIDTH 16.6 % (11.6-16.5); WHITE BLOOD COUNT 5.9 X10^3/uL (3.6-10.0)
[2023-07-23 06:21] LABS: ALANINE AMINOTRANSFERASE 11 Units/L (12-78); ALBUMIN 2.3 g/dL (3.4-5.0); ALKALINE PHOSPHATASE 56 Units/L (46-116); ASPARTATE AMINO TRANSFERASE 18 Units/L (15-37); BLOOD UREA NITROGEN 4 mg/dL (7-18); CARBON DIOXIDE 30.3 mmol/L (21-32); CHLORIDE 104 mmol/L (98-107); COR CA(FOR HYPOALB) 9.4 mg/dL (8.5-10.1); CREATININE 0.81 mg/dL (0.70-1.30); GLUCOSE 93 mg/dL (65-99); MAGNESIUM 1.7 mg/dL (2.0-2.9); POTASSIUM 3.4 mmol/L (3.5-5.1); SODIUM 140 mmol/L (136-145); TOTAL PROTEIN 6.2 g/dL (6.4-8.2); eGFR NON BLACK RACES > 60 (>60)
[2023-07-23] MEDS ORDERED: CONSULT PHARMACY - POTASSIUM & MAGNESIUM XX SCH ×2 (07:00)
[2023-07-23 08:04] VITALS: BMI 16.5
[2023-07-23] MEDS: NYSTATIN SUSP PO SCH ×4 (08:56→20:30)
[2023-07-23] MEDS: ROCEPHIN VIAL 1 GRAM 1 G in NS 100 ML IV 100 ML IV SCH (08:56)
[2023-07-23] MEDS: PROTONIX INJ 40 MG VIAL IVP SCH ×2 (08:56→20:30)
[2023-07-23] MEDS: MAG-OX TAB PO SCH (08:56)
[2023-07-23] MEDS ORDERED: K-DUR TAB 20 MEQ PO SCH (09:00)
[2023-07-23] MEDS ORDERED: MAG-OX TAB PO SCH (10:00)
[2023-07-23] MEDS: D5 1/2 NS + KCL 20 MEQ/L 1,000 ML with MAGNESIUM SULFATE 50% INJ VIAL 1 G IV SCH ×4 (11:07→22:51)
[2023-07-23] MEDS: CYTOTEC PO SCH (20:30)
[2023-07-24 05:13] LABS: BASOPHILS % (AUTO) 0.6 % (0.2-1.0); EOSINOPHILS # (AUTO) 0.2 x10^3/uL (0.0-0.2); EOSINOPHILS % (AUTO) 4.1 % (0.9-2.9); HEMATOCRIT 32.6 % (42.0-54.0); HEMOGLOBIN 10.5 g/dL (13.5-18.0); LYMPHOCYTES # (AUTO) 1.4 X10^3/uL (1.3-2.9); LYMPHOCYTES % (AUTO) 25.6 % (21.0-51.0); MEAN CORPUSCULAR HEMOGLOBIN 24.1 pg (27.0-34.0); MEAN CORPUSCULAR HGB CONC 32.1 g/dL (33.0-35.0); MEAN CORPUSCULAR VOLUME 75.2 fL (80.0-100.0); MONOCYTES # (AUTO) 0.6 x10^3/uL (0.3-0.8); NEUTROPHILS # (AUTO) 3.1 x10^3/uL (2.2-4.8); NEUTROPHILS % (AUTO) 57.7 % (42.0-75.0); PLATELET COUNT 196 X10^3/uL (150.0-450.0); RED BLOOD COUNT 4.34 X10^6/uL (4.7-6.0); RED CELL DISTRIBUTION WIDTH 16.5 % (11.6-16.5); WHITE BLOOD COUNT 5.3 X10^3/uL (3.6-10.0)
[2023-07-24 05:28] LABS: ALANINE AMINOTRANSFERASE 14 Units/L (12-78); ALBUMIN 2.4 g/dL (3.4-5.0); ALKALINE PHOSPHATASE 56 Units/L (46-116); ASPARTATE AMINO TRANSFERASE 19 Units/L (15-37); BLOOD UREA NITROGEN 4 mg/dL (7-18); CALCIUM 8.3 mg/dL (8.5-10.1); CARBON DIOXIDE 30.9 mmol/L (21-32); CHLORIDE 101 mmol/L (98-107); COR CA(FOR HYPOALB) 9.6 mg/dL (8.5-10.1); CREATININE 0.75 mg/dL (0.70-1.30); GLUCOSE 97 mg/dL (65-99); SODIUM 137 mmol/L (136-145); TOTAL PROTEIN 6.3 g/dL (6.4-8.2); eGFR NON BLACK RACES > 60 (>60)
[2023-07-24] MEDS: CARAFATE PO SCH ×3 (06:15→21:05)
[2023-07-24] MEDS: NYSTATIN SUSP PO SCH ×4 (08:48→20:06)
[2023-07-24] MEDS: ROCEPHIN VIAL 1 GRAM 1 G in NS 100 ML IV 100 ML IV SCH (08:48)
[2023-07-24] MEDS: CYTOTEC PO SCH ×2 (08:48→20:06)
[2023-07-24] MEDS: PROTONIX INJ 40 MG VIAL IVP SCH ×2 (08:48→20:06)
--- NOTE | 2023-07-24 09:29 | DR.PROGNOT ---
HOSPITAL PROGRESS NOTE Progress Note for Day of: Progress Note Date: 07/24/23 Chief Complaint Chief Complaint: still unable to swallow solid food though no obstruction was noted . Pt has lost significant Wt . awaiting pathology report from esophageal lesion . Past Medical Family Social History Allergies: Allergies lisinopril Allergy (Verified 11/19/21 10:21) Vital Signs Vital Signs: Vital Signs Temperature 97.8 F Temperature 98.5 F Pulse Rate [Left Radial] 72 Pulse Rate [Left Radial] 77 Respiratory Rate 18 Respiratory Rate 18 Blood Pressure [Left Arm] 148/87 Blood Pressure [Left Arm] 120/76 O2 Sat by Pulse Oximetry 100 Physical Exam Oriented: Normal Eyes: Normal Ear: Normal Nose: Normal Throat: Normal Cardiovascular: Normal : Normal GI:Auscultation: Normal GI:Palpation: Normal GI: Tenderness: Normal Skin: Normal Musculoskeletal: Normal Psychiatric: Normal Mood Description: Calm Affect: Normal Speech Pattern: Clear and Appropriate Laboratory and Diagnostics 07/24/23 04:06 07/24/23 04:06 Labs: 07/21/23 12:58 Blood Blood Culture - Preliminary 07/21/23 12:48 Blood Blood Culture - Preliminary 07/21/23 18:58 Sputum - Expectorated Sputum Sputum Culture - Final 07/21/23 18:58 Sputum - Expectorated Sputum - Final Laboratory WBC 5.3 X10^3/uL (3.6-10.0) 07/24/23 04:06 RBC 4.34 X10^6/uL (4.7-6.0) L 07/24/23 04:06 Hgb 10.5 g/dL (13.5-18.0) L 07/24/23 04:06 Hct 32.6 % (42.0-54.0) L 07/24/23 04:06 MCV 75.2 fL (80.0-100.0) L 07/24/23 04:06 MCH 24.1 pg (27.0-34.0) L 07/24/23 04:06 MCHC 32.1 g/dL (33.0-35.0) L 07/24/23 04:06 RDW 16.5 % (11.6-16.5) 07/24/23 04:06 Plt Count 196 X10^3/uL (150.0-450.0) 07/24/23 04:06 MPV 9.0 fL (7.4-11.0) 07/24/23 04:06 Neut % (Auto) 57.7 % (42.0-75.0) 07/24/23 04:06 Lymph % (Auto) 25.6 % (21.0-51.0) 07/24/23 04:06 [place] % (Auto) 12.0 % (0.0-13.0) 07/24/23 04:06 Eos % (Auto) 4.1 % (0.9-2.9) H 07/24/23 04:06 Baso % (Auto) 0.6 % (0.2-1.0) 07/24/23 04:06 Neut # (Auto) 3.1 x10^3/uL (2.2-4.8) 07/24/23 04:06 Lymph # (Auto) 1.4 X10^3/uL (1.3-2.9) 07/24/23 04:06 [place] # (Auto) 0.6 x10^3/uL (0.3-0.8) 07/24/23 04:06 Eos # (Auto) 0.2 x10^3/uL (0.0-0.2) 07/24/23 04:06 Baso # (Auto) 0.0 X10^3/uL (0.0-0.1) 07/24/23 04:06 Absolute Nucleated RBC 0.0 /100WBC 07/24/23 04:06 Sodium 137 mmol/L (136-145) 07/24/23 04:06 Corrected Sodium TNP 07/24/23 04:06 Potassium 4.0 mmol/L (3.5-5.1) 07/24/23 04:06 Chloride 101 mmol/L (98-107) 07/24/23 04:06 Carbon Dioxide 30.9 mmol/L (21-32) 07/24/23 04:06 BUN 4 mg/dL (7-18) L 07/24/23 04:06 Creatinine 0.75 mg/dL (0.70-1.30) 07/24/23 04:06 Est GFR (MDRD) Af Amer > 60 (>60) 07/24/23 04:06 Est GFR (MDRD) Non-Af > 60 (>60) 07/24/23 04:06 Glucose 97 mg/dL (65-99) 07/24/23 04:06 Calcium 8.3 mg/dL (8.5-10.1) L 07/24/23 04:06 Corrected Calcium 9.6 mg/dL (8.5-10.1) 07/24/23 04:06 Magnesium 2.2 mg/dL (2.0-2.9) 07/24/23 04:06 Total Bilirubin 0.20 mg/dL (0.2-1.0) 07/24/23 04:06 AST 19 Units/L (15-37) 07/24/23 04:06 ALT 14 Units/L (12-78) 07/24/23 04:06 Alkaline Phosphatase 56 Units/L (46-116) 07/24/23 04:06 Total Protein 6.3 g/dL (6.4-8.2) L 07/24/23 04:06 Albumin 2.4 g/dL (3.4-5.0) L 07/24/23 04:06 Globulin 3.9 g/dL (2.5-4.5) 07/24/23 04:06 Albumin/Globulin Ratio 0.6 Ratio (1.1-2.1) L 07/24/23 04:06 Lipase 42 Units/L (73-393) L 07/20/23 17:42 Carcinoembryonic Ag 0.8 ng/mL 07/21/23 05:54 CA 19-9 Antigen 25 U/mL (<=35) 07/21/23 05:54 Total PSA 1.79 ng/mL (0.13-4.0) 07/21/23 05:54 Specimen Type Catherized urine 07/20/23 19:25 Urine Color [place]onia (YELLOW) 07/20/23 19:25 Urine Appearance Clear (CLEAR) 07/20/23 19:25 Urine pH 6.0 (5.0 - 8.0) 07/20/23 19:25 Ur Specific [place] 1.025 (1.000-1.030) 07/20/23 19:25 Urine Protein 2+ (NEGATIVE) 07/20/23 19:25 Urine Glucose (UA) Negative (NEGATIVE) 07/20/23 19:25 Urine Ketones 4+ (NEGATIVE) 07/20/23 19:25 Urine Blood 2+ (NEGATIVE) 07/20/23 19:25 Urine Nitrite Negative (NEGATIVE) 07/20/23 19:25 Urine Bilirubin 1+ (NEGATIVE) 07/20/23 19:25 Urine Urobilinogen 1+ (NORMAL) 07/20/23 19:25 Ur Leukocyte Esterase 1+ (NEGATIVE) 07/20/23 19:25 Urine RBC 3-5 /HPF (0-3) A 07/20/23 19:25 Urine WBC 0-2 /HPF (0-5) 07/20/23 19:25 Ur Squamous Epith Cells Few /HPF (NEGATIVE) 07/20/23 19:25 Urine Bacteria Trace /HPF (NEGATIVE) 07/20/23:25 Hyaline Casts Moderate /LPF (NEGATIVE) 07/20/23 19:25 Urine Mucus Moderate /HPF (NEGATIVE) 07/20/23 19:25 Ur Culture Indicated? 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 may need PEG tube . 2: esophageal lesion upper third , awaiting pathology report .. Problem Patient Problems: Patient Problems Volume depletion (Acute) E86.9 Generalized weakness (Acute) R53.1 Dehydration (Acute) E86.0 Acute bronchitis (Acute) J20.9 Physical deconditioning (Acute) R53.81 Dysphagia (Acute) R13.10 Weight loss (Acute) R63.4 CAD (coronary artery disease) (Chronic) I25.10 Dyslipidemia (Chronic) E78.5 Hypertension (Chronic) I10
[2023-07-24] MEDS: D5 1/2 NS + KCL 20 MEQ/L 1,000 ML with MAGNESIUM SULFATE 50% INJ VIAL 1 G IV SCH ×6 (09:46→21:06)
[2023-07-24] MEDS: NORCO 7.5/325 MG TAB PO PRN (13:31)
[2023-07-25] MEDS: CARAFATE PO SCH ×3 (05:17→21:12)
[2023-07-25 05:19] LABS: BASOPHILS # (AUTO) 0.1 X10^3/uL (0.0-0.1); BASOPHILS % (AUTO) 1.7 % (0.2-1.0); EOSINOPHILS # (AUTO) 0.2 x10^3/uL (0.0-0.2); EOSINOPHILS % (AUTO) 3.8 % (0.9-2.9); HEMATOCRIT 32.5 % (42.0-54.0); HEMOGLOBIN 10.4 g/dL (13.5-18.0); LYMPHOCYTES # (AUTO) 1.2 X10^3/uL (1.3-2.9); LYMPHOCYTES % (AUTO) 20.6 % (21.0-51.0); MEAN CORPUSCULAR HEMOGLOBIN 24.1 pg (27.0-34.0); MEAN CORPUSCULAR VOLUME 75.2 fL (80.0-100.0); MEAN PLATELET VOLUME 9.4 fL (7.4-11.0); MONOCYTES # (AUTO) 0.6 x10^3/uL (0.3-0.8); MONOCYTES % (AUTO) 10.5 % (0.0-13.0); NEUTROPHILS # (AUTO) 3.7 x10^3/uL (2.2-4.8); NEUTROPHILS % (AUTO) 63.4 % (42.0-75.0); PLATELET COUNT 190 X10^3/uL (150.0-450.0); RED BLOOD COUNT 4.33 X10^6/uL (4.7-6.0); RED CELL DISTRIBUTION WIDTH 16.6 % (11.6-16.5); WHITE BLOOD COUNT 5.8 X10^3/uL (3.6-10.0)
[2023-07-25 05:47] LABS: ALANINE AMINOTRANSFERASE 16 Units/L (12-78); ALBUMIN 2.4 g/dL (3.4-5.0); ALKALINE PHOSPHATASE 57 Units/L (46-116); ASPARTATE AMINO TRANSFERASE 21 Units/L (15-37); BLOOD UREA NITROGEN 7 mg/dL (7-18); CALCIUM 8.4 mg/dL (8.5-10.1); CARBON DIOXIDE 31.3 mmol/L (21-32); CHLORIDE 100 mmol/L (98-107); COR CA(FOR HYPOALB) 9.7 mg/dL (8.5-10.1); CREATININE 0.76 mg/dL (0.70-1.30); GLUCOSE 91 mg/dL (65-99); POTASSIUM 4.4 mmol/L (3.5-5.1); SODIUM 135 mmol/L (136-145); TOTAL PROTEIN 6.4 g/dL (6.4-8.2); eGFR NON BLACK RACES > 60 (>60)
[2023-07-25] MEDS: NYSTATIN SUSP PO SCH ×4 (09:29→20:07)
[2023-07-25] MEDS: CYTOTEC PO SCH ×4 (09:29→21:11)
[2023-07-25] MEDS: ROCEPHIN VIAL 1 GRAM 1 G in NS 100 ML IV 100 ML IV SCH (09:29)
[2023-07-25] MEDS: D5 1/2 NS 1,000 ML 1,000 ML IV SCH ×3 (09:30→20:00)
[2023-07-25] MEDS: PROTONIX INJ 40 MG VIAL IVP SCH ×2 (09:30→20:08)
[2023-07-25] MEDS: NORCO 7.5/325 MG TAB PO PRN (13:09)
--- NOTE | 2023-07-25 17:07 | PCM.PROG ---
Progress Note - Progress Note for Day of Date of Exam: 07/22/23 - Subjective Subjective: IS A 73 YEAR OLD PATIENT OF OURS. HE IS CURRENTLY INPATIENT STATUS FOR TREATMENT OF DEHYDRATION, ACUTE BRONCHITIS, PHYSICAL DECONDITIONING, GENERALIZED WEAKNESS, AND DYSPHAGIA. HE HAS A PMH OF CAD, DYSLIPIDEMIA, HTN, [place]. TODAY, HE IS LYING IN BED WITH EYES CLOSED ON MORNING ROUNDS. HE AWAKENS TO VERBAL STIMULI. HE CONTINUES TO COMPLAIN OF WEAKNESS AND DIFFICULTY SWALLOWING. HE DENIES SIGNIFICANT IMPROVEMENT IN SYMPTOMS SINCE ADMISSION. ON EXAMINATION, HEART IS REGULAR IN RATE AND RHYTHM. BILATERAL LUNGS ARE NOTED WITH DIMINISHED LUNG SOUNDS THROUGHOUT. ABDOMEN IS FLAT, SOFT, AND NON-TENDER WITH NORMAL BOWEL SOUNDS NOTED IN ALL QUADRANTS. GOOD RANGE OF MOTION NOTED TO UPPER AND LOWER EXTREMITIES WITH NO EDEMA NOTED. HIS VITALS THIS MORNING ARE: 98.3-78-18-99%-158/86. LABS WERE OBTAINED. WBC 6.4, RBC 4.76, HGB 11.6, HCT 36.2, PLT COUNT 176, SODIUM 139, POTASSIUM 3.7, CHLORIDE 102, BUN 7, CREATININE 0.87, GLUCOSE 101, CALCIUM 8.5, MAGNESIUM 1.9, TOTAL BILI 0.30, AST 19, ALT 14, ALK PHOS 63, TOTAL PROTEIN 7.2, ALBUMIN 2.8. BLOOD AND SPUTUM CULTURES ARE PENDING. AN ABDOMEN/PELVIS CT WITH CONTRAST WAS OBTAINED YESTERDAY AND REVEALED: 1. No acute findings or significant abnormality. CHEST CT WITH CONTRAST WAS OBTAINED AND REVEALED: NO ACUTE FINDINGS. HE IS CURRENTLY RECEIVING: D5NS AT 100 ML/HR, ROCEPHIN 1G IV DAILY, NYSTATIN 5ML PO QID, NORCO 7.5/325MG QID PRN. WE WILL CONTINUE [facility] CURRENT PLAN OF CARE TODAY. , GENERAL SURGEON, HAS CONSULTED WITH HIM AND PLANS FOR AN EGD THIS MORNING. WE ARE IN AGREEMENT WITH PLANS. OTHERWISE, WE WILL FOLLOW UP WITH AM LABS AND CONTINUE TO MONITOR. TIME SPENT ON CLINICAL ASSESSMENT, REVIEWING LABS AND IMAGING, DECISION MAKING, AND DOCUMENTATION GREATER THAN 45 MINUTES. - Past Medical Family Social History Past Med/Fam/Surg Hx: No changes since H&P Allergies: Allergies lisinopril Allergy (Verified 11/19/21 10:21) - Review of Systems ROS: No change since H&P - Vital Signs and I&O's Vital Signs: Vital Signs Temperature 98.0 F Pulse Rate [Left Radial] 70 Respiratory Rate 18 Respiratory Rate 16 Respiratory Rate 18 Blood Pressure [Left Arm] 139/81 O2 Sat by Pulse Oximetry 97 Intake and Output: Intake & Output 07/23/23 07/24/23 07/25/23 07/26/23 11:59 11:59 11:59 11:59 Intake Total 4103 / 4103 3829 / 3829 3319 / 3319 Output Total 2575 / 2575 2700 / 2700 1350 / 1350 Balance 1528 / 1528 1129 / 1129 1968 / 1968 - Physical Exam Oriented: Normal Eyes: Normal Ear: Normal Nose: Normal Respiratory: Generalized, Diminished Cardiovascular: Normal : Normal Auscultation: Bowel Sounds: Normal Palpation: Normal Tenderness: Normal Skin: Normal Musculoskeletal: Normal Psychiatric: Normal Mood Description: Calm Affect: Normal Speech Pattern: Clear, Appropriate - Laboratory and Diagnostics Result Diagrams: 07/25/23 04:06 07/25/23 04:06 Labs: 07/21/23 12:58 Blood Blood Culture - Preliminary 07/21/23 12:48 Blood Blood Culture - Preliminary 07/21/23 18:58 Sputum - Expectorated Sputum Sputum Culture - Final 07/21/23 18:58 Sputum - Expectorated Sputum - Final Laboratory WBC 5.8 X10^3/uL (3.6-10.0) 07/25/23 04:06 RBC 4.33 X10^6/uL (4.7-6.0) L 07/25/23 04:06 Hgb 10.4 g/dL (13.5-18.0) L 07/25/23 04:06 Hct 32.5 % (42.0-54.0) L 07/25/23 04:06 MCV 75.2 fL (80.0-100.0) L 07/25/23 04:06 MCH 24.1 pg (27.0-34.0) L 07/25/23 04:06 MCHC 32.0 g/dL (33.0-35.0) L 07/25/23 04:06 RDW 16.6 % (11.6-16.5) H 07/25/23 04:06 Plt Count 190 X10^3/uL (150.0-450.0) 07/25/23 04:06 MPV 9.4 fL (7.4-11.0) 07/25/23 04:06 Neut % (Auto) 63.4 % (42.0-75.0) 07/25/23 04:06 Lymph % (Auto) 20.6 % (21.0-51.0) L 07/25/23 04:06 [place] % (Auto) 10.5 % (0.0-13.0) 07/25/23 04:06 Eos % (Auto) 3.8 % (0.9-2.9) H 07/25/23 04:06 Baso % (Auto) 1.7 % (0.2-1.0) H 07/25/23 04:06 Neut # (Auto) 3.7 x10^3/uL (2.2-4.8) 07/25/23 04:06 Lymph # (Auto) 1.2 X10^3/uL (1.3-2.9) L 07/25/23 04:06 [place] # (Auto) 0.6 x10^3/uL (0.3-0.8) 07/25/23 04:06 Eos # (Auto) 0.2 x10^3/uL (0.0-0.2) 07/25/23 04:06 Baso # (Auto) 0.1 X10^3/uL (0.0-0.1) 07/25/23 04:06 Absolute Nucleated RBC 0.0 /100WBC 07/25/23 04:06 Sodium 135 mmol/L (136-145) L 07/25/23 04:06 Corrected Sodium TNP 07/25/23 04:06 Potassium 4.4 mmol/L (3.5-5.1) 07/25/23 04:06 Chloride 100 mmol/L (98-107) 07/25/23 04:06 Carbon Dioxide 31.3 mmol/L (21-32) 07/25/23 04:06 BUN 7 mg/dL (7-18) 07/25/23 04:06 Creatinine 0.76 mg/dL (0.70-1.30) 07/25/23 04:06 Est GFR (MDRD) Af Amer > 60 (>60) 07/25/23 04:06 Est GFR (MDRD) Non-Af > 60 (>60) 07/25/23 04:06 Glucose 91 mg/dL (65-99) 07/25/23 04:06 Calcium 8.4 mg/dL (8.5-10.1) L 07/25/23 04:06 Corrected Calcium 9.7 mg/dL (8.5-10.1) 07/25/23 04:06 Magnesium 2.2 mg/dL (2.0-2.9) 07/24/23 04:06 Total Bilirubin 0.20 mg/dL (0.2-1.0) 07/25/23 04:06 AST 21 Units/L (15-37) 07/25/23 04:06 ALT 16 Units/L (12-78) 07/25/23 04:06 Alkaline Phosphatase 57 Units/L (46-116) 07/25/23 04:06 Total Protein 6.4 g/dL (6.4-8.2) 07/25/23 04:06 Albumin 2.4 g/dL (3.4-5.0) L 07/25/23 04:06 Globulin 4.0 g/dL (2.5-4.5) 07/25/23 04:06 Albumin/Globulin Ratio 0.6 Ratio (1.1-2.1) L 07/25/23 04:06 Lipase 42 Units/L (73-393) L 07/20/23 17:42 Carcinoembryonic Ag 0.8 ng/mL 07/21/23 05:54 CA 19-9 Antigen 25 U/mL (<=35) 07/21/23 05:54 Total PSA 1.79 ng/mL (0.13-4.0) 07/21/23 05:54 Specimen Type Catherized urine 07/20/23 19:25 Urine Color [place] (YELLOW) 07/20/23 19:25 Urine Appearance Clear (CLEAR) 07/20/23 19:25 Urine pH 6.0 (5.0 - 8.0) 07/20/23 19:25 Ur Specific [place] 1.025 (1.000-1.030) 07/20/23 19:25 Urine Protein 2+ (NEGATIVE) 07/20/23 19:25 Urine Glucose (UA) Negative (NEGATIVE) 07/20/23 19: Urine Ketones 4+ (NEGATIVE) 07/20/23 19:25 Urine Blood 2+ (NEGATIVE) 07/20/23 19:25 Urine Nitrite Negative (NEGATIVE) 07/20/23 19:25 Urine Bilirubin 1+ (NEGATIVE) 07/20/23 19:25 Urine Urobilinogen 1+ (NORMAL) 07/20/23 19:25 Ur Leukocyte Esterase 1+ (NEGATIVE) 07/20/23 19:25 Urine RBC 3-5 /HPF (0-3) A 07/20/23 19:25 Urine WBC 0-2 /HPF (0-5) 07/20/23 19:25 Ur Squamous Epith Cells Few /HPF (NEGATIVE) 07/20/23 19:25 Urine Bacteria Trace /HPF (NEGATIVE) 07/20/23 19:25 Hyaline Casts Moderate /LPF (NEGATIVE) 07/20/23 19:25 Urine Mucus Moderate /HPF (NEGATIVE) 07/20/23 19:25 Ur Culture Indicated? No/not indicated 07/20/23 19:25 - Plan (1) Dehydration Status: Acute Plan: D5NS AT 100 ML/HR, ROCEPHIN 1G IV DAILY, NYSTATIN 5ML PO QID, NORCO 7.5/325MG QID PRN. REVIEW HOME MEDS (2) Acute bronchitis Status: Acute Qualifiers: Bronchitis organism: unspecified organism Qualified Code(s): J20.9 - Acute bronchitis, unspecified (3) Physical deconditioning Status: Acute Plan: PT/OT (4) Generalized weakness Status: Acute (5) Dysphagia Status: Acute Qualifiers: Dysphagia type: unspecified Qualified Code(s): R13.10 - Dysphagia, unspecified Plan: CONSULT GENERAL SURGERY FOR POSSIBLE EGD (6) Weight loss Status: Acute Plan: OBTAIN ABDOMEN/PLEVIS CT WITH CONTRAST AND CHEST CT WITH CONTRAST. OBTAIN CEA, PSA, AND CA 19-9 LEVELS (7) CAD (coronary artery disease) Status: Chronic Qualifiers: Coronary Disease-Associated Artery/Lesion type: [place] artery [place] vs. transplanted heart: [place] heart Associated angina: unspecified whether angina present Qualified Code(s): I25.10 - Atherosclerotic heart disease of [place] coronary artery without angina pectoris (8) Dyslipidemia Status: Chronic (9) Hypertension Status: Chronic Qualifiers: Hypertension type: primary hypertension Qualified Code(s): I10 - Essential (primary) hypertension
[2023-07-25] MEDS: D5 1/2 NS + KCL 20 MEQ/L 1,000 ML with MAGNESIUM SULFATE 50% INJ VIAL 1 G IV SCH ×2 (19:41)
[2023-07-26] MEDS: D5 1/2 NS 1,000 ML 1,000 ML IV SCH ×4 (00:08→18:17)
[2023-07-26] MEDS ORDERED: HIBICLENS WASH EXT ONE (01:01)
[2023-07-26 05:12] LABS: BASOPHILS # (AUTO) 0.1 X10^3/uL (0.0-0.1); BASOPHILS % (AUTO) 0.9 % (0.2-1.0); EOSINOPHILS # (AUTO) 0.3 x10^3/uL (0.0-0.2); HEMATOCRIT 34.5 % (42.0-54.0); HEMOGLOBIN 11.1 g/dL (13.5-18.0); LYMPHOCYTES # (AUTO) 1.6 X10^3/uL (1.3-2.9); LYMPHOCYTES % (AUTO) 23.3 % (21.0-51.0); MEAN CORPUSCULAR HGB CONC 32.1 g/dL (33.0-35.0); MEAN CORPUSCULAR VOLUME 74.8 fL (80.0-100.0); MEAN PLATELET VOLUME 9.3 fL (7.4-11.0); MONOCYTES # (AUTO) 0.6 x10^3/uL (0.3-0.8); MONOCYTES % (AUTO) 9.2 % (0.0-13.0); NEUTROPHILS # (AUTO) 4.2 x10^3/uL (2.2-4.8); NEUTROPHILS % (AUTO) 62.6 % (42.0-75.0); PLATELET COUNT 210 X10^3/uL (150.0-450.0); RED BLOOD COUNT 4.62 X10^6/uL (4.7-6.0); RED CELL DISTRIBUTION WIDTH 16.5 % (11.6-16.5); WHITE BLOOD COUNT 6.7 X10^3/uL (3.6-10.0)
[2023-07-26 05:21] LABS: ALANINE AMINOTRANSFERASE 18 Units/L (12-78); ALBUMIN 2.5 g/dL (3.4-5.0); ALKALINE PHOSPHATASE 59 Units/L (46-116); ASPARTATE AMINO TRANSFERASE 22 Units/L (15-37); BLOOD UREA NITROGEN 8 mg/dL (7-18); CALCIUM 8.8 mg/dL (8.5-10.1); CARBON DIOXIDE 31.8 mmol/L (21-32); CHLORIDE 99 mmol/L (98-107); CREATININE 0.73 mg/dL (0.70-1.30); GLUCOSE 104 mg/dL (65-99); POTASSIUM 4.6 mmol/L (3.5-5.1); SODIUM 133 mmol/L (136-145); TOTAL PROTEIN 6.8 g/dL (6.4-8.2); eGFR NON BLACK RACES > 60 (>60)
[2023-07-26] MEDS: CARAFATE PO SCH ×3 (05:47→21:06)
[2023-07-26] MEDS ORDERED: LR 1,000 ML IV 1,000 ML IV ONE (08:54)
[2023-07-26] MEDS ORDERED: DIPRIVAN VIAL 20 ML ONE (09:05)
[2023-07-26] MEDS: ROCEPHIN VIAL 1 GRAM 1 G in NS 100 ML IV 100 ML IV SCH (10:00)
[2023-07-26] MEDS: PROTONIX INJ 40 MG VIAL IVP SCH ×2 (10:00→20:05)
[2023-07-26] MEDS: CYTOTEC PO SCH ×2 (10:52→21:06)
[2023-07-26] MEDS: NYSTATIN SUSP PO SCH ×4 (10:54→21:06)
--- NOTE | 2023-07-26 12:24 | PCM.PROG ---
Progress Note - Progress Note for Day of Date of Exam: 07/25/23 - Subjective Subjective: IS A 73 YEAR OLD PATIENT OF OURS. HE IS CURRENTLY INPATIENT STATUS FOR TREATMENT OF DEHYDRATION, ACUTE BRONCHITIS, PHYSICAL DECONDITIONING, GENERALIZED WEAKNESS, AND DYSPHAGIA. HE HAS A PMH OF CAD, DYSLIPIDEMIA, HTN, [place]. TODAY, HE IS LYING IN BED WITH EYES CLOSED ON MORNING ROUNDS. HE AWAKENS TO VERBAL STIMULI. HE CONTINUES TO COMPLAIN OF WEAKNESS AND DIFFICULTY SWALLOWING. HE REPORTS ONLY SLIGHT IMPROVEMENT IN SYMPTOMS SINCE ADMISSION. ON EXAMINATION, HEART IS REGULAR IN RATE AND RHYTHM. BILATERAL LUNGS ARE NOTED WITH DIMINISHED LUNG SOUNDS THROUGHOUT. ABDOMEN IS FLAT, SOFT, AND NON-TENDER WITH NORMAL BOWEL SOUNDS NOTED IN ALL QUADRANTS. GOOD RANGE OF MOTION NOTED TO UPPER AND LOWER EXTREMITIES WITH NO EDEMA NOTED. HIS VITALS THIS MORNING ARE: 98.6-74-18-100%-161/93. LABS WERE OBTAINED. WBC 5.8, RBC 4.33, HGB 10.4, HCT 32.5, PLT COUNT 190, SODIUM 135, POTASSIUM 4.4, CHLORIDE 100, BUN 7, CREATININE 0.76, GLUCOSE 91, CALCIUM 8.4, AST 21, ALT 16, ALK PHOS 57, TOTAL PROTEIN 6.4, ALBUMIN 2.4. BLOOD AND SPUTUM CULTURES ARE PENDING. PERFORMED AN EGD ON TUESDAY. POSTOPERATIVE DX INCLUDES A LARGE FRIABLE ESOPHAGEAL MASS. SEVERAL BIOPSIES WERE TAKEN. HE IS CURRENTLY RECEIVING: D5NS AT 100 ML/HR, ROCEPHIN 1G IV DAILY, NYSTATIN 5ML PO QID, NORCO 7.5/325MG QID PRN, CARAFATE 1G TID, PROTONIX 40MG BID. WE WILL CONTINUE WITH CURRENT PLAN OF CARE TODAY. WILL CONTINUE TO FOLLOW HIM. OTHERWISE, WE WILL FOLLOW UP WITH AM LABS AND CONTINUE TO MONITOR. TIME SPENT ON CLINICAL ASSESSMENT, REVIEWING LABS AND IMAGING, DECISION MAKING, AND DOCUMENTATION GREATER THAN 45 MINUTES. - Past Medical Family Social History Past Med/Fam/Surg Hx: No changes since H&P Allergies: Allergies lisinopril Allergy (Verified 11/19/21 10:21) - Review of Systems ROS: No change since H&P - Vital Signs and I&O's Vital Signs: Vital Signs Temperature 98.5 F Pulse Rate [Left Radial] 79 Respiratory Rate 18 Blood Pressure [Left Arm] 148/81 O2 Sat by Pulse Oximetry 99 Intake and Output: Intake & Output 07/24/23 07/25/23 07/26/23 07/27/23 11:59 11:59 11:59 11:59 Intake Total 3829 / 3829 3319 / 3319 3899 / 3899 Output Total 2700 / 2700 1350 / 1350 2550 / 2550 Balance 1129 / 1129 1968 / 1968 1349 / 1349 - Physical Exam Oriented: Normal Eyes: Normal Ear: Normal Nose: Normal Throat: Normal Respiratory: Generalized, Diminished Cardiovascular: Normal : Normal Auscultation: Bowel Sounds: Normal Palpation: Normal Tenderness: Normal Skin: Normal Musculoskeletal: Normal Psychiatric: Normal Mood Description: Calm Affect: Normal Speech Pattern: Clear, Appropriate - Laboratory and Diagnostics Result Diagrams: 07/26/23 04:06 07/26/23 04:06 Labs: 07/21/23 12:58 Blood Blood Culture - Preliminary 07/21/23 12:48 Blood Blood Culture - Preliminary 07/21/23 18:58 Sputum - Expectorated Sputum Sputum Culture - Final 07/21/23 18:58 Sputum - Expectorated Sputum - Final Laboratory WBC 6.7 X10^3/uL (3.6-10.0) 07/26/23 04:06 RBC 4.62 X10^6/uL (4.7-6.0) L 07/26/23 04:06 Hgb 11.1 g/dL (13.5-18.0) L 07/26/23 04:06 Hct 34.5 % (42.0-54.0) L 07/26/23 04:06 MCV 74.8 fL (80.0-100.0) L 07/26/23 04:06 MCH 24.0 pg (27.0-34.0) L 07/26/23 04:06 MCHC 32.1 g/dL (33.0-35.0) L 07/26/23 04:06 RDW 16.5 % (11.6-16.5) 07/26/23 04:06 Plt Count 210 X10^3/uL (150.0-450.0) 07/26/23 04:06 MPV 9.3 fL (7.4-11.0) 07/26/23 04:06 Neut % (Auto) 62.6 % (42.0-75.0) 07/26/23 04:06 Lymph % (Auto) 23.3 % (21.0-51.0) 07/26/23 04:06 [place] % (Auto) 9.2 % (0.0-13.0) 07/26/23 04:06 Eos % (Auto) 4.0 % (0.9-2.9) H 07/26/23 04:06 Baso % (Auto) 0.9 % (0.2-1.0) 07/26/23 04:06 Neut # (Auto) 4.2 x10^3/uL (2.2-4.8) 07/26/23 04:06 Lymph # (Auto) 1.6 X10^3/uL (1.3-2.9) 07/26/23 04:06 [place] # (Auto) 0.6 x10^3/uL (0.3-0.8) 07/26/23 04:06 Eos # (Auto) 0.3 x10^3/uL (0.0-0.2) H 07/26/23 04:06 Baso # (Auto) 0.1 X10^3/uL (0.0-0.1) 07/26/23 04:06 Absolute Nucleated RBC 0.1 /100WBC 07/26/23 04:06 Sodium 133 mmol/L (136-145) L 07/26/23 04:06 Corrected Sodium TNP 07/26/23 04:06 Potassium 4.6 mmol/L (3.5-5.1) 07/26/23 04:06 Chloride 99 mmol/L (98-107) 07/26/23 04:06 Carbon Dioxide 31.8 mmol/L (21-32) 07/26/23 04:06 BUN 8 mg/dL (7-18) 07/26/23 04:06 Creatinine 0.73 mg/dL (0.70-1.30) 07/26/23 04:06 Est GFR (MDRD) Af Amer > 60 (>60) 07/26/23 04:06 Est GFR (MDRD) Non-Af > 60 (>60) 07/26/23 04:06 Glucose 104 mg/dL (65-99) H 07/26/23 04:06 Calcium 8.8 mg/dL (8.5-10.1) 07/26/23 04:06 Corrected Calcium 10.0 mg/dL (8.5-10.1) 07/26/23 04:06 Magnesium 2.2 mg/dL (2.0-2.9) 07/24/23 04:06 Total Bilirubin 0.20 mg/dL (0.2-1.0) 07/26/23 04:06 AST 22 Units/L (15-37) 07/26/23 04:06 ALT 18 Units/L (12-78) 07/26/23 04:06 Alkaline Phosphatase 59 Units/L (46-116) 07/26/23 04:06 Total Protein 6.8 g/dL (6.4-8.2) 07/26/23 04:06 Albumin 2.5 g/dL (3.4-5.0) L 07/26/23 04:06 Globulin 4.3 g/dL (2.5-4.5) 07/26/23 04:06 Albumin/Globulin Ratio 0.6 Ratio (1.1-2.1) L 07/26/23 04:06 Lipase 42 Units/L (73-393) L 07/20/23 17:42 Carcinoembryonic Ag 0.8 ng/mL 07/21/23 05:54 CA 19-9 Antigen 25 U/mL (<=35) 07/21/23 05:54 Total PSA 1.79 ng/mL (0.13-4.0) 07/21/23 05:54 Specimen Type Catherized urine 07/20/23 19: Urine Color Tonia (YELLOW) 07/20/23 19: Urine Appearance Clear (CLEAR) 07/20/23 19: Urine pH 6.0 (5.0 - 8.0) 07/20/23 19: Ur Specific [place] 1.025 (1.000-1.030) 07/20/23 19: Urine Protein 2+ (NEGATIVE) 07/20/23 19: Urine Glucose (UA) Negative (NEGATIVE) 07/20/23 19: Urine Ketones 4+ (NEGATIVE) 07/20/23 19: Urine Blood 2+ (NEGATIVE) 07/20/23 19: Urine Nitrite Negative (NEGATIVE) 07/20/23 19:25 Urine Bilirubin 1+ (NEGATIVE) 07/20/23 19:25 Urine Urobilinogen 1+ (NORMAL) 07/20/23 19:25 Ur Leukocyte Esterase 1+ (NEGATIVE) 07/20/23 19:25 Urine RBC 3-5 /HPF (0-3) A 07/20/23 19:25 Urine WBC 0-2 /HPF (0-5) 07/20/23 19:25 Ur Squamous Epith Cells Few /HPF (NEGATIVE) 07/20/23 19:25 Urine Bacteria Trace /HPF (NEGATIVE) 07/20/23 19:25 Hyaline Casts Moderate /LPF (NEGATIVE) 07/20/23 19:25 Urine Mucus Moderate /HPF (NEGATIVE) 07/20/23 19:25 Ur Culture Indicated? No/not indicated 07/20/23 19:25 - Plan (1) Dehydration Status: Acute Plan: D5NS AT 100 ML/HR, ROCEPHIN 1G IV DAILY, NYSTATIN 5ML PO QID, NORCO 7.5/325MG QID PRN, CARAFATE 1G TID, PROTONIX 40MG BID (2) Acute bronchitis Status: Acute Qualifiers: Bronchitis organism: unspecified organism Qualified Code(s): J20.9 - Acute bronchitis, unspecified (3) Esophageal polyp Status: Acute (4) Physical deconditioning Status: Acute Plan: PT/OT (5) Dysphagia Status: Acute Qualifiers: Dysphagia type: unspecified Qualified Code(s): R13.10 - Dysphagia, unspecified Plan: CONSULT GENERAL SURGERY FOR POSSIBLE EGD (6) Generalized weakness Status: Acute (7) Weight loss Status: Acute Plan: OBTAIN ABDOMEN/PLEVIS CT WITH CONTRAST AND CHEST CT WITH CONTRAST. OBTAIN CEA, PSA, AND CA 19-9 LEVELS (8) CAD (coronary artery disease) Status: Chronic Qualifiers: Coronary Disease-Associated Artery/Lesion type: [place] artery [place] vs. transplanted heart: [place] heart Associated angina: unspecified whether angina present Qualified Code(s): I25.10 - Atherosclerotic heart disease of [place] coronary artery without angina pectoris (9) Dyslipidemia Status: Chronic (10) Hypertension Status: Chronic Qualifiers: Hypertension type: primary hypertension Qualified Code(s): I10 - Essential (primary) hypertension
--- NOTE | 2023-07-26 12:28 | PCM.PROG ---
Progress Note - Progress Note for Day of Date of Exam: 07/26/23 - Subjective Subjective: IS A 73 YEAR OLD PATIENT OF OURS. HE IS CURRENTLY INPATIENT STATUS FOR TREATMENT OF DEHYDRATION, ACUTE BRONCHITIS, PHYSICAL DECONDITIONING, GENERALIZED WEAKNESS, AND DYSPHAGIA. PERFORMED AN EGD ON TUESDAY. POSTOPERATIVE DX INCLUDES A LARGE FRIABLE ESOPHAGEAL MASS. SEVERAL BIOPSIES WERE TAKEN. HE HAS A PMH OF CAD, DYSLIPIDEMIA, HTN, [place]. TODAY, HE IS LYING IN BED WITH EYES CLOSED ON MORNING ROUNDS. HE AWAKENS TO VERBAL STIMULI. HE CONTINUES TO COMPLAIN OF WEAKNESS AND DIFFICULTY SWALLOWING. HE REPORTS ONLY SLIGHT IMPROVEMENT IN SYMPTOMS SINCE ADMISSION. ON EXAMINATION, HEART IS REGULAR IN RATE AND RHYTHM. BILATERAL LUNGS ARE NOTED WITH DIMINISHED LUNG SOUNDS THROUGHOU T. ABDOMEN IS FLAT, SOFT, AND NON-TENDER WITH NORMAL BOWEL SOUNDS NOTED IN ALL QUADRANTS. GOOD RANGE OF MOTION NOTED TO UPPER AND LOWER EXTREMITIES WITH NO EDEMA NOTED. HIS VITALS THIS MORNING ARE: 98.5-79-18-99%-148/81. LABS WERE OBTAINED. WBC 6.7, RBC 4.62, HGB 11.1, HCT 34.5, PLT COUNT 210, SODIUM 133, POTASSIUM 4.6, CHLORIDE 99, BUN 8, CREATININE 0.73, GLUCOSE 104, CALCIUM 8.8, AST 22, ALT 18, ALK PHOS 59, TOTAL PROTEIN 6.8, ALBUMIN 2.5. BLOOD AND SPUTUM CULTURES ARE PENDING. HE IS CURRENTLY RECEIVING: D5NS AT 100 ML/HR, ROCEPHIN 1G IV DAILY, NYSTATIN 5ML PO QID, NORCO 7.5/325MG QID PRN, CARAFATE 1G TID, PROTONIX 40MG BID. WE CONSULTED FOR POSSIBLE PLACEMENT OF PEG TUBE DUE TO DYSPHAGIA AND COLON POLYP, WHICH WE SUSPECT TO BE MALIGNANT. HE PLANS FOR PLACEMENT OF PEG TUBE TODAY. OTHERWISE, WE WILL FOLLOW UP WITH AM LABS AND CONTINUE TO MONITOR. TIME SPENT ON CLINICAL ASSESSMENT, REVIEWING LABS AND IMAGING, DECISION MAKING, AND DOCUMENTATION GREATER THAN 45 MINUTES. - Past Medical Family Social History Past Med/Fam/Surg Hx: No changes since H&P Allergies: Allergies lisinopril Allergy (Verified 11/19/21 10:21) - Review of Systems ROS: No change since H&P - Vital Signs and I&O's Vital Signs: Vital Signs Temperature 98.5 F Pulse Rate [Left Radial] 79 Respiratory Rate 18 Blood Pressure [Left Arm] 148/81 O2 Sat by Pulse Oximetry 99 Intake and Output: Intake & Output 07/24/23 07/25/23 07/26/23 07/27/23 11:59 11:59 11:59 11:59 Intake Total 3829 / 3829 3319 / 3319 3899 / 3899 Output Total 2700 / 2700 1350 / 1350 2550 / 2550 Balance 1129 / 1129 1968 / 1968 1349 / 1349 - Physical Exam Oriented: Normal Eyes: Normal Ear: Normal Nose: Normal Throat: Normal Respiratory: Generalized, Diminished Cardiovascular: Normal : Normal Auscultation: Bowel Sounds: Normal Tenderness: Normal Skin: Normal Musculoskeletal: Normal Psychiatric: Normal Mood Description: Calm Affect: Normal Speech Pattern: Clear, Appropriate - Laboratory and Diagnostics Result Diagrams: 07/26/23 04:06 07/26/23 04:06 Labs: 07/21/23 12:58 Blood Blood Culture - Preliminary 07/21/23 12:48 Blood Blood Culture - Preliminary 07/21/23 18:58 Sputum - Expectorated Sputum Sputum Culture - Final 07/21/23 18:58 Sputum - Expectorated Sputum - Final Laboratory WBC 6.7 X10^3/uL (3.6-10.0) 07/26/23 04:06 RBC 4.62 X10^6/uL (4.7-6.0) L 07/26/23 04:06 Hgb 11.1 g/dL (13.5-18.0) L 07/26/23 04:06 Hct 34.5 % (42.0-54.0) L 07/26/23 04:06 MCV 74.8 fL (80.0-100.0) L 07/26/23 04:06 MCH 24.0 pg (27.0-34.0) L 07/26/23 04:06 MCHC 32.1 g/dL (33.0-35.0) L 07/26/23 04:06 RDW 16.5 % (11.6-16.5) 07/26/23 04:06 Plt Count 210 X10^3/uL (150.0-450.0) 07/26/23 04:06 MPV 9.3 fL (7.4-11.0) 07/26/23 04:06 Neut % (Auto) 62.6 % (42.0-75.0) 07/26/23 04:06 Lymph % (Auto) 23.3 % (21.0-51.0) 07/26/23 04:06 [place] % (Auto) 9.2 % (0.0-13.0) 07/26/23 04:06 Eos % (Auto) 4.0 % (0.9-2.9) H 07/26/23 04:06 Baso % (Auto) 0.9 % (0.2-1.0) 07/26/23 04:06 Neut # (Auto) 4.2 x10^3/uL (2.2-4.8) 07/26/23 04:06 Lymph # (Auto) 1.6 X10^3/uL (1.3-2.9) 07/26/23 04:06 [place] # (Auto) 0.6 x10^3/uL (0.3-0.8) 07/26/23 04:06 Eos # (Auto) 0.3 x10^3/uL (0.0-0.2) H 07/26/23 04:06 Baso # (Auto) 0.1 X10^3/uL (0.0-0.1) 07/26/23 04:06 Absolute Nucleated RBC 0.1 /100WBC 07/26/23 04:06 Sodium 133 mmol/L (136-145) L 07/26/23 04:06 Corrected Sodium TNP 07/26/23 04:06 Potassium 4.6 mmol/L (3.5-5.1) 07/26/23 04:06 Chloride 99 mmol/L (98-107) 07/26/23 04:06 Carbon Dioxide 31.8 mmol/L (21-32) 07/26/23 04:06 BUN 8 mg/dL (7-18) 07/26/23 04:06 Creatinine 0.73 mg/dL (0.70-1.30) 07/26/23 04:06 Est GFR (MDRD) Af Amer > 60 (>60) 07/26/23 04:06 Est GFR (MDRD) Non-Af > 60 (>60) 07/26/23 04:06 Glucose 104 mg/dL (65-99) H 07/26/23 04:06 Calcium 8.8 mg/dL (8.5-10.1) 07/26/23 04:06 Corrected Calcium 10.0 mg/dL (8.5-10.1) 07/26/23 04:06 Magnesium 2.2 mg/dL (2.0-2.9) 07/24/23 04:06 Total Bilirubin 0.20 mg/dL (0.2-1.0) 07/26/23 04:06 AST 22 Units/L (15-37) 07/26/23 04:06 ALT 18 Units/L (12-78) 07/26/23 04:06 Alkaline Phosphatase 59 Units/L (46-116) 07/26/23 04:06 Total Protein 6.8 g/dL (6.4-8.2) 07/26/23 04:06 Albumin 2.5 g/dL (3.4-5.0) L 07/26/23 04:06 Globulin 4.3 g/dL (2.5-4.5) 07/26/23 04:06 Albumin/Globulin Ratio 0.6 Ratio (1.1-2.1) L 07/26/23 04:06 Lipase 42 Units/L (73-393) L 07/20/23 17:42 Carcinoembryonic Ag 0.8 ng/mL 07/21/23 05:54 CA 19-9 Antigen 25 U/mL (<=35) 07/21/23 05:54 Total PSA 1.79 ng/mL (0.13-4.0) 07/21/23 05:54 Specimen Type Catherized urine 07/20/23 19:25 Urine Color [place] (YELLOW) 07/20/23 19: Urine Appearance Clear (CLEAR) 07/20/23 19: Urine pH 6.0 (5.0 - 8.0) 07/20/23 19: Ur Specific [place] 1.025 (1.000-1.030) 07/20/23 19: Urine Protein 2+ (NEGATIVE) 07/20/23 19: Urine Glucose (UA) Negative (NEGATIVE) 07/20/23 19: Urine Ketones 4+ (NEGATIVE) 07/20/23 19: Urine Blood 2+ (NEGATIVE) 07/20/23 19:25 Urine Nitrite Negative (NEGATIVE) 07/20/23 19:25 Urine Bilirubin 1+ (NEGATIVE) 07/20/23 19:25 Urine Urobilinogen 1+ (NORMAL) 07/20/23 19:25 Ur Leukocyte Esterase 1+ (NEGATIVE) 07/20/23 19:25 Urine RBC 3-5 /HPF (0-3) A 07/20/23 19:25 Urine WBC 0-2 /HPF (0-5) 07/20/23 19:25 Ur Squamous Epith Cells Few /HPF (NEGATIVE) 07/20/23 19:25 Urine Bacteria Trace /HPF (NEGATIVE) 07/20/23 19:25 Hyaline Casts Moderate /LPF (NEGATIVE) 07/20/23 19:25 Urine Mucus Moderate /HPF (NEGATIVE) 07/20/23 19:25 Ur Culture Indicated? No/not indicated 07/20/23 19:25 - Plan (1) Dehydration Status: Acute Plan: D5NS AT 100 ML/HR, ROCEPHIN 1G IV DAILY, NYSTATIN 5ML PO QID, NORCO 7.5/325MG QID PRN, CARAFATE 1G TID, PROTONIX 40MG BID (2) Acute bronchitis Status: Acute Qualifiers: Bronchitis organism: unspecified organism Qualified Code(s): J20.9 - Acute bronchitis, unspecified (3) Esophageal polyp Status: Acute (4) Physical deconditioning Status: Acute Plan: PT/OT (5) Dysphagia Status: Acute Qualifiers: Dysphagia type: unspecified Qualified Code(s): R13.10 - Dysphagia, unspecified Plan: CONSULT GENERAL SURGERY FOR POSSIBLE EGD (6) Generalized weakness Status: Acute (7) Weight loss Status: Acute Plan: OBTAIN ABDOMEN/PLEVIS CT WITH CONTRAST AND CHEST CT WITH CONTRAST. OBTAIN CEA, PSA, AND CA 19-9 LEVELS (8) CAD (coronary artery disease) Status: Chronic Qualifiers: Coronary Disease-Associated Artery/Lesion type: [place] artery [place] vs. transplanted heart: [place] heart Associated angina: unspecified whether angina present Qualified Code(s): I25.10 - Atherosclerotic heart disease of [place] c or[place] artery without angina pectoris (9) Dyslipidemia Status: Chronic (10) Hypertension Status: Chronic Qualifiers: Hypertension type: primary hypertension Qualified Code(s): I10 - Essential (primary) hypertension
[2023-07-26] MEDS ORDERED: MORPHINE SULFATE INJ 2 MG INJ ONE (14:30)
[2023-07-26] MEDS: MORPHINE SULFATE INJ 2 MG INJ IVP PRN ×2 (14:32→20:13)
[2023-07-26] MEDS ORDERED: STERILE WATER IRRIGATION IR ONE (14:42)
[2023-07-27] MEDS: D5 1/2 NS 1,000 ML 1,000 ML IV SCH ×3 (01:58→21:34)
[2023-07-27 05:00] LABS: BASOPHILS # (AUTO) 0.1 X10^3/uL (0.0-0.1); BASOPHILS % (AUTO) 0.7 % (0.2-1.0); EOSINOPHILS # (AUTO) 0.2 x10^3/uL (0.0-0.2); HEMOGLOBIN 10.6 g/dL (13.5-18.0); LYMPHOCYTES # (AUTO) 1.4 X10^3/uL (1.3-2.9); LYMPHOCYTES % (AUTO) 20.3 % (21.0-51.0); MEAN CORPUSCULAR HGB CONC 32.2 g/dL (33.0-35.0); MEAN CORPUSCULAR VOLUME 74.6 fL (80.0-100.0); MEAN PLATELET VOLUME 9.1 fL (7.4-11.0); MONOCYTES # (AUTO) 0.7 x10^3/uL (0.3-0.8); MONOCYTES % (AUTO) 10.3 % (0.0-13.0); NEUTROPHILS # (AUTO) 4.5 x10^3/uL (2.2-4.8); NEUTROPHILS % (AUTO) 65.7 % (42.0-75.0); PLATELET COUNT 225 X10^3/uL (150.0-450.0); RED BLOOD COUNT 4.43 X10^6/uL (4.7-6.0); RED CELL DISTRIBUTION WIDTH 16.5 % (11.6-16.5); WHITE BLOOD COUNT 6.9 X10^3/uL (3.6-10.0)
[2023-07-27 05:09] LABS: ALANINE AMINOTRANSFERASE 12 Units/L (12-78); ALBUMIN 2.5 g/dL (3.4-5.0); ALKALINE PHOSPHATASE 59 Units/L (46-116); ASPARTATE AMINO TRANSFERASE 16 Units/L (15-37); BLOOD UREA NITROGEN 4 mg/dL (7-18); CALCIUM 8.9 mg/dL (8.5-10.1); CARBON DIOXIDE 29.9 mmol/L (21-32); CHLORIDE 100 mmol/L (98-107); COR CA(FOR HYPOALB) 10.1 mg/dL (8.5-10.1); COR NA(FOR HYPERGLY) 136 mmol/L (136-145); CREATININE 0.76 mg/dL (0.70-1.30); GLUCOSE 123 mg/dL (65-99); SODIUM 135 mmol/L (136-145); TOTAL PROTEIN 6.8 g/dL (6.4-8.2); eGFR NON BLACK RACES > 60 (>60)
[2023-07-27 05:11] LABS: HYPOCHROMASIA 1+; MICROCYTOSIS SLIGHT; PLATELET MORPHOLOGY COMMENT NORMAL (NORMAL)
[2023-07-27] MEDS: CARAFATE PO SCH ×3 (05:23→21:35)
[2023-07-27] MEDS: ROCEPHIN VIAL 1 GRAM 1 G in NS 100 ML IV 100 ML IV SCH (09:23)
[2023-07-27] MEDS: CYTOTEC PO SCH ×2 (09:23→21:35)
[2023-07-27] MEDS: PROTONIX INJ 40 MG VIAL IVP SCH ×2 (09:24→21:34)
[2023-07-27] MEDS: NYSTATIN SUSP PO SCH ×4 (09:24→21:34)
[2023-07-27] MEDS ORDERED: PHARMACY CONSULT - TPN XX SCH (11:00)
[2023-07-27] MEDS: MORPHINE SULFATE INJ 2 MG INJ IVP PRN (11:37)
[2023-07-27] MEDS: ALBUMIN HUMAN 25%- 100 ML 100 ML IV SCH (12:55)
--- NOTE | 2023-07-27 16:42 | PCM.PROG ---
Progress Note - Progress Note for Day of Date of Exam: 07/27/23 - Subjective Subjective: IS A 73 YEAR OLD PATIENT OF OURS. HE IS CURRENTLY INPATIENT STATUS FOR TREATMENT OF DEHYDRATION, ACUTE BRONCHITIS, PHYSICAL DECONDITIONING, GENERALIZED WEAKNESS, AND DYSPHAGIA. PERFORMED AN EGD ON TUESDAY. POSTOPERATIVE DX INCLUDES A LARGE FRIABLE ESOPHAGEAL MASS. WE RECEIVED THE BIOPSY REPORTS BACK YESTERDAY. SPECIMEN WAS IDENTIFIED SQUAMOUS CELL CARCINOMA. HE IS DAY 1 STATUS POST PLACEMENT OF A PEG TUBE. HE HAS A PMH OF CAD, DYSLIPIDEMIA, HTN, [place]. TODAY, HE IS LYING IN BED WITH EYES CLOSED ON MORNING ROUNDS. HE AWAKENS TO VERBAL STIMULI. HE CONTINUES TO COMPLAIN OF WEAKNESS AND DIFFICULTY SWALLOWING. HE REPORTS SLIGHT IMPROVEMENT IN SYMPTOMS TODAY. ON EXAMINATION, HEART IS REGULAR IN RATE AND RHYTHM. BILATERAL LUNGS ARE NOTED WITH DIMINISHED LUNG SOUNDS THROUGHOUT. ABDOMEN IS FLAT, SOFT, AND NON- TENDER WITH NORMAL BOWEL SOUNDS NOTED IN ALL QUADRANTS. PEG TUBE NOTED. GOOD RANGE OF MOTION NOTED TO UPPER AND LOWER EXTREMITIES WITH NO EDEMA NOTED. HIS VITALS THIS MORNING ARE: 97.8-80-18-98%-157/89. LABS WERE OBTAINED. WBC 6.9, RBC 4.43, HGB 10.6, HCT 33.0, PLT COUNT 225, SODIUM 135, POTASSIUM 4.0, CHLORIDE 100, BUN 4, CREATININE 0.76, GLUCOSE 123, CALCIUM 8.9, TOTAL BILI 0.20, AST 16, ALT 12, ALK PHOS 59, TOTAL PROTEIN 6.8, ALBUMIN 2.5. HE IS CURRENTLY RECEIVING: D5NS AT 125 ML/HR, ROCEPHIN 1G IV DAILY, ALBUMIN 25% IV DAILY, MORPHINE SULFATE 1-2MG IV Q4H PRN, NYSTATIN 5ML PO QID, NORCO 7.5/325MG QID PRN, CARAFATE 1G TID, PROTONIX 40MG BID. WE WILL START FEEDINGS VIA THE FEEDING PUMP TODAY AT 20ML/HR. WE WILL HAVE PHYSICAL THERAPY WORK WITH HIM. OTHERWISE, WE WILL FOLLOW UP WITH AM LABS AND CONTINUE TO MONITOR. TIME SPENT ON CLINICAL ASSESSMENT, REVIEWING LABS AND IMAGING, DECISION MAKING, AND DOCUMENTATION GREATER THAN 45 MINUTES. - Past Medical Family Social History Past Med/Fam/Surg Hx: No changes since H&P Allergies: Allergies lisinopril Allergy (Verified 11/19/21 10:21) - Review of Systems ROS: No change since H&P - Vital Signs and I&O's Vital Signs: Vital Signs Temperature 97.5 F Temperature 97.8 F Pulse Rate [Left Radial] 78 Pulse Rate [Left Radial] 84 Respiratory Rate 18 Respiratory Rate 20 Respiratory Rate 18 Respiratory Rate 20 Blood Pressure [Right Arm] 128/82 Blood Pressure [Right Arm] 131/80 O2 Sat by Pulse Oximetry 98 O2 Sat by Pulse Oximetry 100 Intake and Output: Intake & Output 07/25/23 07/26/23 07/27/23 07/28/23 11:59 11:59 11:59 11:59 Intake Total 3319 / 3319 3899 / 3899 2646 / 2646 918 / 918 Output Total 1350 / 1350 2550 / 2550 1565 / 1565 900 / 900 Balance 1968 / 1968 1349 / 1349 1081 / 1081 - Physical Exam Oriented: Normal Eyes: Normal Ear: Normal Nose: Normal Throat: Normal Respiratory: Generalized, Diminished Cardiovascular: Normal : Normal Auscultation: Bowel Sounds: Normal Tenderness: Normal Skin: Normal Musculoskeletal: Normal Psychiatric: Normal Mood Description: Calm Affect: Normal Speech Pattern: Clear, Appropriate - Laboratory and Diagnostics Result Diagrams: 07/27/23 04:20 07/27/23 04:20 Labs: 07/21/23 12:58 Blood Blood Culture - Final 07/21/23 12:48 Blood Blood Culture - Final 07/21/23 18:58 Sputum - Expectorated Sputum Sputum Culture - Final 07/21/23 18:58 Sputum - Expectorated Sputum - Final Laboratory WBC 6.9 X10^3/uL (3.6-10.0) 07/27/23 04:20 RBC 4.43 X10^6/uL (4.7-6.0) L 07/27/23 04:20 Hgb 10.6 g/dL (13.5-18.0) L 07/27/23 04:20 Hct 33.0 % (42.0-54.0) L 07/27/23 04:20 MCV 74.6 fL (80.0-100.0) L 07/27/23 04:20 MCH 24.0 pg (27.0-34.0) L 07/27/23 04:20 MCHC 32.2 g/dL (33.0-35.0) L 07/27/23 04:20 RDW 16.5 % (11.6-16.5) 07/27/23 04:20 Plt Count 225 X10^3/uL (150.0-450.0) 07/27/23 04:20 Plt Count Comment Adequate (ADEQUATE) 07/27/23 04:20 MPV 9.1 fL (7.4-11.0) 07/27/23 04:20 Neut % (Auto) 65.7 % (42.0-75.0) 07/27/23 04:20 Lymph % (Auto) 20.3 % (21.0-51.0) L 07/27/23 04:20 [place] % (Auto) 10.3 % (0.0-13.0) 07/27/23 04:20 Eos % (Auto) 3.0 % (0.9-2.9) H 07/27/23 04:20 Baso % (Auto) 0.7 % (0.2-1.0) 07/27/23 04:20 Neut # (Auto) 4.5 x10^3/uL (2.2-4.8) 07/27/23 04:20 Lymph # (Auto) 1.4 X10^3/uL (1.3-2.9) 07/27/23 04:20 [place] # (Auto) 0.7 x10^3/uL (0.3-0.8) 07/27/23 04:20 Eos # (Auto) 0.2 x10^3/uL (0.0-0.2) 07/27/23 04:20 Baso # (Auto) 0.1 X10^3/uL (0.0-0.1) 07/27/23 04:20 Absolute Nucleated RBC 0.1 /100WBC 07/27/23 04:20 Plt Morphology Comment Normal (NORMAL) 07/27/23 04:20 RBC Morphology Abnormal (NORMAL) 07/27/23 04:20 Hypochromasia 1+ A 07/27/23 04:20 Microcytosis Slight A 07/27/23 04:20 Sodium 135 mmol/L (136-145) L 07/27/23 04:20 Corrected Sodium 136 mmol/L (136-145) 07/27/23 04:20 Potassium 4.0 mmol/L (3.5-5.1) 07/27/23 04:20 Chloride 100 mmol/L (98-107) 07/27/23 04:20 Carbon Dioxide 29.9 mmol/L (21-32) 07/27/23 04:20 BUN 4 mg/dL (7-18) L 07/27/23 04:20 Creatinine 0.76 mg/dL (0.70-1.30) 07/27/23 04:20 Est GFR (MDRD) Af Amer > 60 (>60) 07/27/23 04:20 Est GFR (MDRD) Non-Af > 60 (>60) 07/27/23 04:20 Glucose 123 mg/dL (65-99) H 07/27/23 04:20 Calcium 8.9 mg/dL (8.5-10.1) 07/27/23 04:20 Corrected Calcium 10.1 mg/dL (8.5-10.1) 07/27/23 04:20 Magnesium 2.2 mg/dL (2.0-2.9) 07/24/23 04:06 Total Bilirubin 0.20 mg/dL (0.2-1.0) 07/27/23 04:20 AST 16 Units/L (15-37) 07/27/23 04:20 ALT 12 Units/L (12-78) 07/27/23 04:20 Alkaline Phosphatase 59 Units/L (46-116) 07/27/23 04:20 Total Protein 6.8 g/dL (6.4-8.2) 07/27/23 04:20 Albumin 2.5 g/dL (3.4-5.0) L 07/27/23 04:20 Globulin 4.3 g/dL (2.5-4.5) 07/27/23 04:20 Albumin/Globulin Ratio 0.6 Ratio (1.1-2.1) L 07/27/23 04:20 Lipase 42 Units/L (73-393) L 07/20/23 17:42 Carcinoembryonic Ag 0.8 ng/mL 07/21/23 05:54 CA 19-9 Antigen 25 U/mL (<=35) 07/21/23 05:54 Total PSA 1.79 ng/mL (0.13-4.0) 07/21/23 05:54 Specimen Type Catherized urine 07/20/23 19: Urine Color [place] (YELLOW) 07/20/23 19: Urine Appearance Clear (CLEAR) 07/20/23 19:25 Urine pH 6.0 (5.0 - 8.0) 07/20/23 19:25 Ur Specific [place] 1.025 (1.000-1.030) 07/20/23 19:25 Urine Protein 2+ (NEGATIVE) 07/20/23 19: Urine Glucose (UA) Negative (NEGATIVE) 07/20/23 19: Urine Ketones 4+ (NEGATIVE) 07/20/23: Urine Blood 2+ (NEGATIVE) 07/20/23: Urine Nitrite Negative (NEGATIVE) 07/20/23: Urine Bilirubin 1+ (NEGATIVE) 07/20/23: Urine Urobilinogen 1+ (NORMAL) 07/20/23 19: Ur Leukocyte Esterase 1+ (NEGATIVE) 07/20/23 19: Urine RBC 3-5 /HPF (0-3) A 07/20/23 19:25 Urine WBC 0-2 /HPF (0-5) 07/20/23 19:25 Ur Squamous Epith Cells Few /HPF (NEGATIVE) 07/20/23 19:25 Urine Bacteria Trace /HPF (NEGATIVE) 07/20/23 19: Hyaline Casts Moderate /LPF (NEGATIVE) 07/20/23 19:25 Urine Mucus Moderate /HPF (NEGATIVE) 07/20/23 19:25 Ur Culture Indicated? No/not indicated 07/20/23 19: Tissue Pathology See comment. 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 PEG TUBE FEEDINGS, PT/OT (2) Dehydration Status: Acute (3) Acute bronchitis Status: Acute Qualifiers: Bronchitis organism: unspecified organism Qualified Code(s): J20.9 - Acute bronchitis, unspecified (4) Physical deconditioning Status: Acute Plan: PT/OT (5) Dysphagia Status: Acute Qualifiers: Dysphagia type: unspecified Qualified Code(s): R13.10 - Dysphagia, unspecified (6) Generalized weakness Status: Acute (7) Weight loss Status: Acute (8) CAD (coronary artery disease) Status: Chronic Qualifiers: Coronary Disease-Associated Artery/Lesion type: [place] artery [place] vs. transplanted heart: [place] heart Associated angina: unspecified whether angina present Qualified Code(s): I25.10 - Atherosclerotic heart disease of [place] coronary artery without angina pectoris (9) Dyslipidemia Status: Chronic (10) Hypertension Status: Chronic Qualifiers: Hypertension type: primary hypertension Qualified Code(s): I10 - Essential (primary) hypertension
[2023-07-28] MEDS: D5 1/2 NS 1,000 ML 1,000 ML IV SCH (04:15)
[2023-07-28] MEDS: CARAFATE PO SCH ×3 (05:01→21:39)
[2023-07-28 05:39] LABS: BASOPHILS # (AUTO) 0.1 X10^3/uL (0.0-0.1); EOSINOPHILS # (AUTO) 0.1 x10^3/uL (0.0-0.2); EOSINOPHILS % (AUTO) 2.2 % (0.9-2.9); HEMOGLOBIN 10.3 g/dL (13.5-18.0); LYMPHOCYTES # (AUTO) 1.4 X10^3/uL (1.3-2.9); LYMPHOCYTES % (AUTO) 26.7 % (21.0-51.0); MEAN CORPUSCULAR HEMOGLOBIN 24.2 pg (27.0-34.0); MEAN CORPUSCULAR VOLUME 75.4 fL (80.0-100.0); MEAN PLATELET VOLUME 8.9 fL (7.4-11.0); MONOCYTES # (AUTO) 0.7 x10^3/uL (0.3-0.8); MONOCYTES % (AUTO) 12.5 % (0.0-13.0); NEUTROPHILS # (AUTO) 3.1 x10^3/uL (2.2-4.8); NEUTROPHILS % (AUTO) 57.6 % (42.0-75.0); PLATELET COUNT 229 X10^3/uL (150.0-450.0); RED BLOOD COUNT 4.24 X10^6/uL (4.7-6.0); WHITE BLOOD COUNT 5.3 X10^3/uL (3.6-10.0)
[2023-07-28 05:55] LABS: ALANINE AMINOTRANSFERASE 15 Units/L (12-78); ALBUMIN 2.8 g/dL (3.4-5.0); ALKALINE PHOSPHATASE 51 Units/L (46-116); ASPARTATE AMINO TRANSFERASE 18 Units/L (15-37); BLOOD UREA NITROGEN 6 mg/dL (7-18); CALCIUM 8.6 mg/dL (8.5-10.1); CARBON DIOXIDE 30.4 mmol/L (21-32); CHLORIDE 99 mmol/L (98-107); COR CA(FOR HYPOALB) 9.6 mg/dL (8.5-10.1); CREATININE 0.71 mg/dL (0.70-1.30); GLUCOSE 110 mg/dL (65-99); POTASSIUM 3.6 mmol/L (3.5-5.1); SODIUM 137 mmol/L (136-145); TOTAL PROTEIN 6.7 g/dL (6.4-8.2); eGFR NON BLACK RACES > 60 (>60)
[2023-07-28] MEDS ORDERED: CONSULT PHARMACY - POTASSIUM & MAGNESIUM XX SCH (07:00)
[2023-07-28] MEDS ORDERED: K-RIDER 10 MEQ/NS 100 ML 10 MEQ/100 ML BAG IV SCH (09:00)
[2023-07-28] MEDS: D5 1/2 NS + KCL 20 MEQ/L 1,000 ML with MAGNESIUM SULFATE 50% INJ VIAL 1 G IV SCH ×6 (09:03→20:28)
[2023-07-28] MEDS: MORPHINE SULFATE INJ 2 MG INJ IVP PRN ×2 (09:05→18:24)
[2023-07-28] MEDS: ALBUMIN HUMAN 25%- 100 ML 100 ML IV SCH (09:06)
[2023-07-28] MEDS: NYSTATIN SUSP PO SCH ×4 (09:09→20:27)
[2023-07-28] MEDS: CYTOTEC PO SCH ×2 (09:09→20:27)
[2023-07-28] MEDS: PROTONIX INJ 40 MG VIAL IVP SCH ×2 (09:10→20:27)
[2023-07-28] MEDS: ROCEPHIN VIAL 1 GRAM 1 G in NS 100 ML IV 100 ML IV SCH (11:10)
[2023-07-28] MEDS: DUONEB 0.5 MG/3 MG (3 mL) NEB SCH ×4 (12:51→20:30)
[2023-07-28] MEDS: NORCO 7.5/325 MG TAB PO PRN (19:45)
[2023-07-28] MEDS: COLACE CAP 100 MG PO SCH (22:17)
[2023-07-29] MEDS: D5 1/2 NS + KCL 20 MEQ/L 1,000 ML with MAGNESIUM SULFATE 50% INJ VIAL 1 G IV SCH ×4 (01:13→04:28)
[2023-07-29] MEDS: CARAFATE PO SCH ×3 (05:45→21:20)
[2023-07-29 06:06] LABS: BASOPHILS # (AUTO) 0.1 X10^3/uL (0.0-0.1); BASOPHILS % (AUTO) 1.1 % (0.2-1.0); EOSINOPHILS # (AUTO) 0.1 x10^3/uL (0.0-0.2); EOSINOPHILS % (AUTO) 2.8 % (0.9-2.9); HEMATOCRIT 30.2 % (42.0-54.0); HEMOGLOBIN 9.8 g/dL (13.5-18.0); LYMPHOCYTES % (AUTO) 20.2 % (21.0-51.0); MEAN CORPUSCULAR HEMOGLOBIN 24.4 pg (27.0-34.0); MEAN CORPUSCULAR HGB CONC 32.5 g/dL (33.0-35.0); MEAN CORPUSCULAR VOLUME 75.1 fL (80.0-100.0); MEAN PLATELET VOLUME 8.8 fL (7.4-11.0); MONOCYTES # (AUTO) 0.7 x10^3/uL (0.3-0.8); MONOCYTES % (AUTO) 14.2 % (0.0-13.0); NEUTROPHILS # (AUTO) 3.1 x10^3/uL (2.2-4.8); NEUTROPHILS % (AUTO) 61.7 % (42.0-75.0); PLATELET COUNT 222 X10^3/uL (150.0-450.0); RED BLOOD COUNT 4.02 X10^6/uL (4.7-6.0)
[2023-07-29 06:20] LABS: ALANINE AMINOTRANSFERASE 16 Units/L (12-78); ALKALINE PHOSPHATASE 50 Units/L (46-116); ASPARTATE AMINO TRANSFERASE 18 Units/L (15-37); BLOOD UREA NITROGEN 7 mg/dL (7-18); CALCIUM 8.4 mg/dL (8.5-10.1); CARBON DIOXIDE 30.7 mmol/L (21-32); CHLORIDE 100 mmol/L (98-107); COR CA(FOR HYPOALB) 9.2 mg/dL (8.5-10.1); CREATININE 0.68 mg/dL (0.70-1.30); GLUCOSE 102 mg/dL (65-99); POTASSIUM 4.3 mmol/L (3.5-5.1); SODIUM 136 mmol/L (136-145); TOTAL PROTEIN 6.8 g/dL (6.4-8.2); eGFR NON BLACK RACES > 60 (>60)
[2023-07-29] MEDS: MORPHINE SULFATE INJ 2 MG INJ IVP PRN ×3 (08:36→19:53)
[2023-07-29] MEDS: CYTOTEC PO SCH (09:37)
[2023-07-29] MEDS: NORVASC TAB 5 MG PO SCH (09:39)
[2023-07-29] MEDS: MILK OF MAGNESIA PO SCH (09:43)
[2023-07-29] MEDS: NYSTATIN SUSP PO SCH ×4 (09:43→20:07)
[2023-07-29] MEDS: D5 1/2 NS 1,000 ML 1,000 ML IV SCH ×3 (09:44→16:59)
[2023-07-29] MEDS: DUONEB 0.5 MG/3 MG (3 mL) NEB SCH ×4 (09:47→21:23)
[2023-07-29] MEDS: ALBUMIN HUMAN 25%- 100 ML 100 ML IV SCH (10:13)
[2023-07-29] MEDS: PROTONIX INJ 40 MG VIAL IVP SCH ×2 (10:13→20:08)
[2023-07-29] MEDS: ROCEPHIN VIAL 1 GRAM 1 G in NS 100 ML IV 100 ML IV SCH (11:36)
--- NOTE | 2023-07-29 16:43 | PCM.PROG ---
Progress Note - Progress Note for Day of Date of Exam: 07/28/23 - Subjective Subjective: IS A 73 YEAR OLD PATIENT OF OURS. HE HAS A PMH OF CAD, DYSLIPIDEMIA, HTN, VA. HE IS CURRENTLY INPATIENT STATUS FOR TREATMENT OF DEHYDRATION, ACUTE BRONCHITIS, PHYSICAL DECONDITIONING, GENERALIZED WEAKNESS, AND DYSPHAGIA. PERFORMED AN EGD ON TUESDAY. POSTOPERATIVE DX INCLUDES A LARGE FRIABLE ESOPHAGEAL MASS. 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 HE IS DAY 2 STATUS POST PLACEMENT OF A PEG TUBE. HE IS RECEIVING PEG TUBE FEEDINGS VIA PUMP AT 40 ML/HR. TODAY, HE IS ALERT, SITTING UP IN BED ON MORNING ROUNDS. HE CONTINUES TO COMPLAIN OF WEAKNESS AND DIFFICULTY SWALLOWING. HE HAS A NON-PRODUCTIVE COUGH THIS MORNING AND CONTINUES TO HAVE DIFFICULTY SW ALLOWING. ON EXAMINATION, HEART IS REGULAR IN RATE AND RHYTHM. BILATERAL LUNGS ARE NOTED WITH DIMINISHED LUNG SOUNDS THROUGHOUT. ABDOMEN IS FLAT, SOFT, AND NON-TENDER WITH NORMAL BOWEL SOUNDS NOTED IN ALL QUADRANTS. PEG TUBE NOTED. GOOD RANGE OF MOTION NOTED TO UPPER AND LOWER EXTREMITIES WITH NO EDEMA NOTED. HIS VITALS THIS MORNING ARE: 98.7-71-20-100%-148/88. LABS WERE OBTAINED. WBC 5.3, RBC 4.24, HGB 10.3, HCT 32.0, PLT COUNT 229, SODIUM 137, POTASSIUM 3.6, CHLORIDE 99, BUN 6, CREATININE 0.71, GLUCOSE 110, CALCIUM 8.6, MAGNESIUM 1.8, AST 18, ALT 15, ALK PHOS 51, TOTAL PROTEIN 6.7, ALBUMIN 2.8. HE IS CURRENTLY RECEIVING: D5NS AT 125 ML/HR, ROCEPHIN 1G IV DAILY, ALBUMIN 25% IV DAILY, DUONEBS QID, COLACE 100MG HS, MORPHINE SULFATE 1-2MG IV Q4H PRN, NYSTATIN 5ML PO QID, NORCO 7.5/325MG QID PRN, CARAFATE 1G TID, PROTONIX 40MG BID. WE WILL HAVE PHYSICAL THERAPY WORK WITH HIM TODAY. OTHERWISE, WE WILL FOLLOW UP WITH AM LABS AND CONTINUE TO MONITOR. TIME SPENT ON CLINICAL ASSESSMENT, REVIEWING LABS AND IMAGING, DECISION MAKING, AND DOCUMENTATION GREATER THAN 45 MINUTES. - Past Medical Family Social History Past Med/Fam/Surg Hx: No changes since H&P Allergies: Allergies lisinopril Allergy (Verified 11/19/21 10:21) - Review of Systems ROS: No change since H&P - Vital Signs and I&O's Vital Signs: Vital Signs Temperature 98.9 F Pulse Rate [Left Radial] 93 Pulse Rate 100 Respiratory Rate 18 Respiratory Rate 16 Respiratory Rate 20 Respiratory Rate 18 Blood Pressure [Right Arm] 119/61 O2 Sat by Pulse Oximetry 91 O2 Sat by Pulse Oximetry 99 Intake and Output: Intake & Output 07/27/23 07/28/23 07/29/23 07/30/23 11:59 11:59 11:59 11:59 Intake Total 2646 / 2646 2668 / 2668 4270 / 4270 180 / 180 Output Total 1565 / 1565 2400 / 2400 2900 / 2900 1475 / 1475 Balance 1081 / 1081 268 / 268 1370 / 1370 -1295 / -1295 - Physical Exam Oriented: Normal Eyes: Normal Ear: Normal Nose: Normal Throat: Normal Respiratory: Generalized, Diminished Cardiovascular: Normal : Normal Auscultation: Bowel Sounds: Normal Palpation: Normal Tenderness: Normal Skin: Normal Musculoskeletal: Normal Psychiatric: Normal Mood Description: Calm Affect: Normal Speech Pattern: Clear, Appropriate - Laboratory and Diagnostics Result Diagrams: 07/29/23 05:04 07/29/23 05:04 Labs: 07/21/23 12:58 Blood Blood Culture - Final 07/21/23 12:48 Blood Blood Culture - Final 07/21/23 18:58 Sputum - Expectorated Sputum Sputum Culture - Final 07/21/23 18:58 Sputum - Expectorated Sputum - Final Laboratory WBC 5.0 X10^3/uL (3.6-10.0) 07/29/23 05:04 RBC 4.02 X10^6/uL (4.7-6.0) L 07/29/23 05:04 Hgb 9.8 g/dL (13.5-18.0) L 07/29/23 05:04 Hct 30.2 % (42.0-54.0) L 07/29/23 05:04 MCV 75.1 fL (80.0-100.0) L 07/29/23 05:04 MCH 24.4 pg (27.0-34.0) L 07/29/23 05:04 MCHC 32.5 g/dL (33.0-35.0) L 07/29/23 05:04 RDW 16.0 % (11.6-16.5) 07/29/23 05:04 Plt Count 222 X10^3/uL (150.0-450.0) 07/29/23 05:04 Plt Count Comment Adequate (ADEQUATE) 07/27/23 04:20 MPV 8.8 fL (7.4-11.0) 07/29/23 05:04 Neut % (Auto) 61.7 % (42.0-75.0) 07/29/23 05:04 Lymph % (Auto) 20.2 % (21.0-51.0) L 07/29/23 05:04 [place] % (Auto) 14.2 % (0.0-13.0) H 07/29/23 05:04 Eos % (Auto) 2.8 % (0.9-2.9) 07/29/23 05:04 Baso % (Auto) 1.1 % (0.2-1.0) H 07/29/23 05:04 Neut # (Auto) 3.1 x10^3/uL (2.2-4.8) 07/29/23 05:04 Lymph # (Auto) 1.0 X10^3/uL (1.3-2.9) L 07/29/23 05:04 [place] # (Auto) 0.7 x10^3/uL (0.3-0.8) 07/29/23 05:04 Eos # (Auto) 0.1 x10^3/uL (0.0-0.2) 07/29/23 05:04 Baso # (Auto) 0.1 X10^3/uL (0.0-0.1) 07/29/23 05:04 Absolute Nucleated RBC 0.1 /100WBC 07/29/23 05:04 Plt Morphology Comment Normal (NORMAL) 07/27/23 04:20 RBC Morphology Abnormal (NORMAL) 07/27/23 04:20 Hypochromasia 1+ A 07/27/23 04:20 Microcytosis Slight A 07/27/23 04:20 Sodium 136 mmol/L (136-145) 07/29/23 05:04 Corrected Sodium TNP 07/29/23 05:04 Potassium 4.3 mmol/L (3.5-5.1) 07/29/23 05:04 Chloride 100 mmol/L (98-107) 07/29/23 05:04 Carbon Dioxide 30.7 mmol/L (21-32) 07/29/23 05:04 BUN 7 mg/dL (7-18) 07/29/23 05:04 Creatinine 0.68 mg/dL (0.70-1.30) L 07/29/23 05:04 Est GFR (MDRD) Af Amer > 60 (>60) 07/29/23 05:04 Est GFR (MDRD) Non-Af > 60 (>60) 07/29/23 05:04 Glucose 102 mg/dL (65-99) H 07/29/23 05:04 Calcium 8.4 mg/dL (8.5-10.1) L 07/29/23 05:04 Corrected Calcium 9.2 mg/dL (8.5-10.1) 07/29/23 05:04 Magnesium 2.3 mg/dL (2.0-2.9) 07/29/23 05:04 Total Bilirubin 0.20 mg/dL (0.2-1.0) 07/29/23 05:04 AST 18 Units/L (15-37) 07/29/23 05:04 ALT 16 Units/L (12-78) 07/29/23 05:04 Alkaline Phosphatase 50 Units/L (46-116) 07/29/23 05:04 Total Protein 6.8 g/dL (6.4-8.2) 07/29/23 05:04 Albumin 3.0 g/dL (3.4-5.0) L 07/29/23 05:04 Globulin 3.8 g/dL (2.5-4.5) 07/29/23 05:04 Albumin/Globulin Ratio 0.8 Ratio (1.1-2.1) L 07/29/23 05:04 Lipase 42 Units/L (73-393) L 07/20/23 17:42 Carcinoembryonic Ag 0.8 ng/mL 07/21/23 05:54 CA 19-9 Antigen 25 U/mL (<=35) 07/21/23 05:54 Total PSA 1.79 ng/mL (0.13-4.0) 07/21/23 05:54 Specimen Type Catherized urine 07/20/23 19:25 Urine Color [place] (YELLOW) 07/20/23 19: Urine Appearance Clear (CLEAR) 07/20/23 19: Urine pH 6.0 (5.0 - 8.0) 07/20/23 19:25 Ur Specific [place] 1.025 (1.000-1.030) 07/20/23 19:25 Urine Protein 2+ (NEGATIVE) 07/20/23 19:25 Urine Glucose (UA) Negative (NEGATIVE) 07/20/23 19:25 Urine Ketones 4+ (NEGATIVE) 07/20/23 19:25 Urine Blood 2+ (NEGATIVE) 07/20/23 19: Urine Nitrite Negative (NEGATIVE) 07/20/23 19: Urine Bilirubin 1+ (NEGATIVE) 07/20/23 19: Urine Urobilinogen 1+ (NORMAL) 07/20/23 19:25 Ur Leukocyte Esterase 1+ (NEGATIVE) 07/20/23 19:25 Urine RBC 3-5 /HPF (0-3) A 07/20/23 19:25 Urine WBC 0-2 /HPF (0-5) 07/20/23 19:25 Ur Squamous Epith Cells Few /HPF (NEGATIVE) 07/20/23 19:25 Urine Bacteria Trace /HPF (NEGATIVE) 07/20/23 19: Hyaline Casts Moderate /LPF (NEGATIVE) 07/20/23 19:25 Urine Mucus Moderate /HPF (NEGATIVE) 07/20/23 19:25 Ur Culture Indicated? No/not indicated 07/20/23 19:25 Tissue Pathology See comment. 07/22/23 08:50 - Plan (1) Squamous cell carcinoma of esophagus Status: Acute Plan: D5NS AT 125 ML/HR, ROCEPHIN 1G IV DAILY, ALBUMIN 25% IV DAILY, DUONEBS QID, MORPHINE SULFATE 1-2MG IV Q4H PRN, NYSTATIN 5ML PO QID, NORCO 7.5/325MG QID PRN, CARAFATE 1G TID, PROTONIX 40MG BID. PEG TUBE FEEDINGS, PT/OT (2) Dehydration Status: Acute (3) Acute bronchitis Status: Acute Qualifiers: Bronchitis organism: unspecified organism Qualified Code(s): J20.9 - Acute bronchitis, unspecified (4) Physical deconditioning Status: Acute Plan: PT/OT (5) Dysphagia Status: Acute Qualifiers: Dysphagia type: unspecified Qualified Code(s): R13.10 - Dysphagia, unspecified (6) Generalized weakness Status: Acute (7) Weight loss Status: Acute (8) CAD (coronary artery disease) Status: Chronic Qualifiers: Coronary Disease-Associated Artery/Lesion type: [place] artery [place] vs. transplanted heart: [place] heart Associated angina: unspecified whether angina present Qualified Code(s): I25.10 - Atherosclerotic heart disease of [place] coronary artery without angina pectoris (9) Dyslipidemia Status: Chronic (10) Hypertension Status: Chronic Qualifiers: Hypertension type: primary hypertension Qualified Code(s): I10 - Essential (primary) hypertension
[2023-07-29] MEDS: COLACE CAP 100 MG PO SCH (20:08)
[2023-07-30] MEDS: D5 1/2 NS 1,000 ML 1,000 ML IV SCH ×5 (03:46→16:51)
[2023-07-30] MEDS: CYTOTEC PO SCH ×3 (03:47→20:58)
[2023-07-30] MEDS: MORPHINE SULFATE INJ 2 MG INJ IVP PRN ×3 (05:06→17:49)
[2023-07-30] MEDS: CARAFATE PO SCH ×3 (05:33→21:26)
[2023-07-30 06:51] LABS: BASOPHILS # (AUTO) 0.1 X10^3/uL (0.0-0.1); BASOPHILS % (AUTO) 0.8 % (0.2-1.0); EOSINOPHILS # (AUTO) 0.2 x10^3/uL (0.0-0.2); EOSINOPHILS % (AUTO) 3.4 % (0.9-2.9); HEMATOCRIT 30.8 % (42.0-54.0); HEMOGLOBIN 9.9 g/dL (13.5-18.0); LYMPHOCYTES % (AUTO) 14.8 % (21.0-51.0); MEAN CORPUSCULAR HEMOGLOBIN 24.2 pg (27.0-34.0); MEAN CORPUSCULAR HGB CONC 32.2 g/dL (33.0-35.0); MEAN CORPUSCULAR VOLUME 75.2 fL (80.0-100.0); MEAN PLATELET VOLUME 8.4 fL (7.4-11.0); MONOCYTES # (AUTO) 0.7 x10^3/uL (0.3-0.8); MONOCYTES % (AUTO) 10.6 % (0.0-13.0); NEUTROPHILS # (AUTO) 4.7 x10^3/uL (2.2-4.8); NEUTROPHILS % (AUTO) 70.4 % (42.0-75.0); PLATELET COUNT 219 X10^3/uL (150.0-450.0); RED BLOOD COUNT 4.09 X10^6/uL (4.7-6.0); RED CELL DISTRIBUTION WIDTH 16.2 % (11.6-16.5); WHITE BLOOD COUNT 6.7 X10^3/uL (3.6-10.0)
[2023-07-30 07:11] LABS: ALANINE AMINOTRANSFERASE 17 Units/L (12-78); ALBUMIN 3.3 g/dL (3.4-5.0); ALKALINE PHOSPHATASE 53 Units/L (46-116); ASPARTATE AMINO TRANSFERASE 17 Units/L (15-37); BLOOD UREA NITROGEN 11 mg/dL (7-18); CALCIUM 8.5 mg/dL (8.5-10.1); CARBON DIOXIDE 31.4 mmol/L (21-32); CHLORIDE 99 mmol/L (98-107); COR CA(FOR HYPOALB) 9.1 mg/dL (8.5-10.1); COR NA(FOR HYPERGLY) 136 mmol/L (136-145); CREATININE 0.72 mg/dL (0.70-1.30); GLUCOSE 128 mg/dL (65-99); POTASSIUM 4.7 mmol/L (3.5-5.1); SODIUM 135 mmol/L (136-145); TOTAL PROTEIN 7.1 g/dL (6.4-8.2); eGFR NON BLACK RACES > 60 (>60)
[2023-07-30] MEDS: DUONEB 0.5 MG/3 MG (3 mL) NEB SCH ×4 (08:34→20:00)
[2023-07-30] MEDS: ALBUMIN HUMAN 25%- 100 ML 100 ML IV SCH (09:09)
[2023-07-30] MEDS: ROCEPHIN VIAL 1 GRAM 1 G in NS 100 ML IV 100 ML IV SCH (09:09)
[2023-07-30] MEDS: NORVASC TAB 5 MG PO SCH (09:09)
[2023-07-30] MEDS: PROTONIX INJ 40 MG VIAL IVP SCH ×2 (09:09→20:58)
[2023-07-30] MEDS: NYSTATIN SUSP PO SCH ×4 (09:09→20:58)
[2023-07-30] MEDS: MILK OF MAGNESIA PO SCH (09:10)
--- NOTE | 2023-07-30 12:10 | PCM.PROG ---
Progress Note Progress Note for Day of Date of Exam: 07/30/23 Subjective Subjective: Patient seen at bedside, no acute events overnight. He has been doing well. He is currently being treated for dehydration, generalized weakness and dysphagia. He has a hx of throat cancer. He had a EGD done recently which showed a mass in the esophagus suggestive of SCC. He currently has a PEG tube for feeds, tolerating well. He is drinking Ensure. He is also being treated for bronchitis with Rocephin. Labs/imaging reviewed - Hgb 9.9 Plan: continue hydration and tube feeds. PT/OT as tolerated. Continue IV Rocephin and nebs. Continue home medications. Monitor AM labs/imaging. Past Medical Family Social History Past Med/Fam/Surg Hx: No changes since H&P Allergies: Allergies lisinopril Allergy (Verified 11/19/21 10:21) Review of Systems ROS: No change since H&P Vital Signs and I&O's Vital Signs: Vital Signs Temperature 98.5 F Temperature 98.7 F Pulse Rate [Left Radial] 66 Pulse Rate [Left Radial] 72 Pulse Rate 74 Respiratory Rate 18 Respiratory Rate 20 Respiratory Rate 20 Respiratory Rate 20 Blood Pressure [Right Arm] 143/81 Blood Pressure [Right Arm] 110/65 O2 Sat by Pulse Oximetry 99 O2 Sat by Pulse Oximetry 100 O2 Sat by Pulse Oximetry 99 Intake and Output: Intake & Output 07/27/23 07/28/23 07/29/23 07/30/23 23:59 23:59 23:59 23:59 Intake Total 2245 / 2245 4080 / 4080 4710 / 4710 2310 / 2310 Output Total 2040 / 2040 2700 / 2700 2775 / 2775 1400 / 1400 Balance 205 / 205 1380 / 1380 1935 / 1935 910 / 910 Physical Exam Oriented: Normal Eyes: Normal Ear: Normal Nose: Normal Throat: Normal Respiratory: Generalized and Diminished Cardiovascular: Normal Auscultation: Bowel Sounds: Normal Tenderness: Normal Skin: Normal Musculoskeletal: Normal Psychiatric: Normal Mood Description: Calm Affect: Normal Speech Pattern: Clear and Appropriate Laboratory and Diagnostics 07/30/23 06:31 07/30/23 06:31 Labs: 07/21/23 12:58 Blood Blood Culture - Final 07/21/23 12:48 Blood Blood Culture - Final 07/21/23 18:58 Sputum - Expectorated Sputum Sputum Culture - Final 07/21/23 18:58 Sputum - Expectorated Sputum - Final Laboratory WBC 6.7 X10^3/uL (3.6-10.0) 07/30/23 06:31 RBC 4.09 X10^6/uL (4.7-6.0) L 07/30/23 06:31 Hgb 9.9 g/dL (13.5-18.0) L 07/30/23 06:31 Hct 30.8 % (42.0-54.0) L 07/30/23 06:31 MCV 75.2 fL (80.0-100.0) L 07/30/23 06:31 MCH 24.2 pg (27.0-34.0) L 07/30/23 06:31 MCHC 32.2 g/dL (33.0-35.0) L 07/30/23 06:31 RDW 16.2 % (11.6-16.5) 07/30/23 06:31 Plt Count 219 X10^3/uL (150.0-450.0) 07/30/23 06:31 Plt Count Comment Adequate (ADEQUATE) 07/27/23 04:20 MPV 8.4 fL (7.4-11.0) 07/30/23 06:31 Neut % (Auto) 70.4 % (42.0-75.0) 07/30/23 06:31 Lymph % (Auto) 14.8 % (21.0-51.0) L 07/30/23 06:31 [place] % (Auto) 10.6 % (0.0-13.0) 07/30/23 06:31 Eos % (Auto) 3.4 % (0.9-2.9) H 07/30/23 06:31 Baso % (Auto) 0.8 % (0.2-1.0) 07/30/23 06:31 Neut # (Auto) 4.7 x10^3/uL (2.2-4.8) 07/30/23 06:31 Lymph # (Auto) 1.0 X10^3/uL (1.3-2.9) L 07/30/23 06:31 [place] # (Auto) 0.7 x10^3/uL (0.3-0.8) 07/30/23 06:31 Eos # (Auto) 0.2 x10^3/uL (0.0-0.2) 07/30/23 06:31 Baso # (Auto) 0.1 X10^3/uL (0.0-0.1) 07/30/23 06:31 Absolute Nucleated RBC 0.0 /100WBC 07/30/23 06:31 Plt Morphology Comment Normal (NORMAL) 07/27/23 04:20 RBC Morphology Abnormal (NORMAL) 07/27/23 04:20 Hypochromasia 1+ A 07/27/23 04:20 Microcytosis Slight A 07/27/23 04:20 Sodium 135 mmol/L (136-145) L 07/30/23 06:31 Corrected Sodium 136 mmol/L (136-145) 07/30/23 06:31 Potassium 4.7 mmol/L (3.5-5.1) 07/30/23 06:31 Chloride 99 mmol/L (98-107) 07/30/23 06:31 Carbon Dioxide 31.4 mmol/L (21-32) 07/30/23 06:31 BUN 11 mg/dL (7-18) 07/30/23 06:31 Creatinine 0.72 mg/dL (0.70-1.30) 07/30/23 06:31 Est GFR (MDRD) Af Amer > 60 (>60) 07/30/23 06:31 Est GFR (MDRD) Non-Af > 60 (>60) 07/30/23 06:31 Glucose 128 mg/dL (65-99) H 07/30/23 06:31 Calcium 8.5 mg/dL (8.5-10.1) 07/30/23 06:31 Corrected Calcium 9.1 mg/dL (8.5-10.1) 07/30/23 06:31 Magnesium 2.3 mg/dL (2.0-2.9) 07/29/23 05:04 Total Bilirubin 0.20 mg/dL (0.2-1.0) 07/30/23 06:31 AST 17 Units/L (15-37) 07/30/23 06:31 ALT 17 Units/L (12-78) 07/30/23 06:31 Alkaline Phosphatase 53 Units/L (46-116) 07/30/23 06:31 Total Protein 7.1 g/dL (6.4-8.2) 07/30/23 06:31 Albumin 3.3 g/dL (3.4-5.0) L 07/30/23 06:31 Globulin 3.8 g/dL (2.5-4.5) 07/30/23 06:31 Albumin/Globulin Ratio 0.9 Ratio (1.1-2.1) L 07/30/23 06:31 Lipase 42 Units/L (73-393) L 07/20/23 17:42 Carcinoembryonic Ag 0.8 ng/mL 07/21/23 05:54 CA 19-9 Antigen 25 U/mL (<=35) 07/21/23 05:54 Total PSA 1.79 ng/mL (0.13-4.0) 07/21/23 05:54 Specimen Type Catherized urine 07/20/23 19:25 Urine Color [place] (YELLOW) 07/20/23 19:25 Urine Appearance Clear (CLEAR) 07/20/23 19:25 Urine pH 6.0 (5.0 - 8.0) 07/20/23 19:25 Ur Specific [place] 1.025 (1.000-1.030) 07/20/23 19:25 Urine Protein 2+ (NEGATIVE) 07/20/23 19:25 Urine Glucose (UA) Negative (NEGATIVE) 07/20/23 19: Urine Ketones 4+ (NEGATIVE) 07/20/23 19: Urine Blood 2+ (NEGATIVE) 07/20/23 19: Urine Nitrite Negative (NEGATIVE) 07/20/23 19: Urine Bilirubin 1+ (NEGATIVE) 07/20/23 19:25 Urine Urobilinogen 1+ (NORMAL) 07/20/23 19:25 Ur Leukocyte Esterase 1+ (NEGATIVE) 07/20/23 19:25 Urine RBC 3-5 /HPF (0-3) A 07/20/23 19:25 Urine WBC 0-2 /HPF (0-5) 07/20/23 19:25 Ur Squamous Epith Cells Few /HPF (NEGATIVE) 07/20/23 19:25 Urine Bacteria Trace /HPF (NEGATIVE) 07/20/23 19:25 Hyaline Casts Moderate /LPF (NEGATIVE) 07/20/23 19:25 Urine Mucus Moderate /HPF (NEGATIVE) 07/20/23 19:25 Ur Culture Indicated? No/not indicated 07/20/23 19:25 Tissue Pathology See comment. 07/22/23 08:50 Plan (1) Squamous cell carcinoma of esophagus: Status: Acute (2) Dehydration: Status: Acute (3) Acute bronchitis: Status: Acute Qualifiers: Bronchitis organism: unspecified organism Qualified Code(s): J20.9 - Acute bronchitis, unspecified (4) Physical deconditioning: Status: Acute Plan: PT/OT (5) Dysphagia: Status: Acute Qualifiers: Dysphagia type: unspecified Qualified Code(s): R13.10 - Dysphagia, unspecified (6) Generalized weakness: Status: Acute (7) Weight loss: Status: Acute (8) CAD (coronary artery disease): Status: Chronic Qualifiers: Associated angina: unspecified whether angina present Coronary Disease- Associated Artery/Lesion type: [place] artery [place] vs. transplanted heart: [place] heart Qualified Code(s): I25.10 - Atherosclerotic heart disease of [place] coronary artery without angina pectoris (9) Dyslipidemia: Status: Chronic (10) Hypertension: Status: Chronic Qualifiers: Hypertension type: primary hypertension Qualified Code(s): I10 - Essential (primary) hypertension
[2023-07-30] MEDS: COLACE CAP 100 MG PO SCH (20:58)
[2023-07-31] MEDS: D5 1/2 NS 1,000 ML 1,000 ML IV SCH ×3 (01:30→17:24)
[2023-07-31] MEDS: CARAFATE PO SCH ×3 (06:06→22:40)
[2023-07-31 07:00] LABS: BASOPHILS % (AUTO) 0.6 % (0.2-1.0); EOSINOPHILS # (AUTO) 0.2 x10^3/uL (0.0-0.2); EOSINOPHILS % (AUTO) 3.2 % (0.9-2.9); HEMATOCRIT 32.5 % (42.0-54.0); HEMOGLOBIN 10.3 g/dL (13.5-18.0); LYMPHOCYTES # (AUTO) 1.2 X10^3/uL (1.3-2.9); LYMPHOCYTES % (AUTO) 17.4 % (21.0-51.0); MEAN CORPUSCULAR HGB CONC 31.8 g/dL (33.0-35.0); MEAN CORPUSCULAR VOLUME 75.5 fL (80.0-100.0); MEAN PLATELET VOLUME 8.8 fL (7.4-11.0); MONOCYTES # (AUTO) 0.8 x10^3/uL (0.3-0.8); MONOCYTES % (AUTO) 12.2 % (0.0-13.0); NEUTROPHILS # (AUTO) 4.4 x10^3/uL (2.2-4.8); NEUTROPHILS % (AUTO) 66.6 % (42.0-75.0); PLATELET COUNT 228 X10^3/uL (150.0-450.0); RED CELL DISTRIBUTION WIDTH 16.4 % (11.6-16.5); WHITE BLOOD COUNT 6.6 X10^3/uL (3.6-10.0)
[2023-07-31 07:20] LABS: ALANINE AMINOTRANSFERASE 19 Units/L (12-78); ALBUMIN 3.7 g/dL (3.4-5.0); ALKALINE PHOSPHATASE 54 Units/L (46-116); ASPARTATE AMINO TRANSFERASE 19 Units/L (15-37); BLOOD UREA NITROGEN 8 mg/dL (7-18); CALCIUM 9.2 mg/dL (8.5-10.1); CARBON DIOXIDE 31.3 mmol/L (21-32); CHLORIDE 99 mmol/L (98-107); CREATININE 0.73 mg/dL (0.70-1.30); GLUCOSE 98 mg/dL (65-99); POTASSIUM 4.8 mmol/L (3.5-5.1); SODIUM 135 mmol/L (136-145); TOTAL PROTEIN 7.6 g/dL (6.4-8.2); eGFR NON BLACK RACES > 60 (>60)
[2023-07-31] MEDS: ROCEPHIN VIAL 1 GRAM 1 G in NS 100 ML IV 100 ML IV SCH (08:31)
[2023-07-31] MEDS: NORVASC TAB 5 MG PO SCH (08:31)
[2023-07-31] MEDS: CYTOTEC PO SCH ×2 (08:31→21:25)
[2023-07-31] MEDS: ALBUMIN HUMAN 25%- 100 ML 100 ML IV SCH (08:31)
[2023-07-31] MEDS: PROTONIX INJ 40 MG VIAL IVP SCH ×2 (08:32→21:25)
[2023-07-31] MEDS: NYSTATIN SUSP PO SCH ×4 (08:33→21:25)
[2023-07-31] MEDS: MILK OF MAGNESIA PO SCH (08:33)
[2023-07-31] MEDS: DUONEB 0.5 MG/3 MG (3 mL) NEB SCH ×4 (08:51→21:02)
--- NOTE | 2023-07-31 11:21 | PCM.PROG ---
Progress Note Progress Note for Day of Date of Exam: 07/31/23 Subjective Subjective: Patient seen at bedside, no acute events overnight. He is doing well. He is currently being treated for dehydration, generalized weakness and dysphagia. He has a hx of throat cancer. He had a EGD done this admission which showed a mass in the esophagus suggestive of SCC. He currently has a PEG tube for feeds, tolerating well. He is drinking Ensure. He is also being treated for bronchitis with Rocephin. Labs/imaging reviewed - Hgb 10.3 Plan: continue hydration and tube feeds. PT/OT as tolerated. Continue IV Rocephin and nebs. Continue home medications. Monitor AM labs/imaging. Awaiting home health to be set up for discharge. Past Medical Family Social History Past Med/Fam/Surg Hx: No changes since H&P Allergies: Allergies lisinopril Allergy (Verified 11/19/21 10:21) Review of Systems ROS: No change since H&P Vital Signs and I&O's Vital Signs: Vital Signs Temperature 99.0 F Pulse Rate [Right Radial] 82 Pulse Rate 89 Respiratory Rate 18 Blood Pressure [Right Arm] 139/83 O2 Sat by Pulse Oximetry 99 O2 Sat by Pulse Oximetry 99 Intake and Output: Intake & Output 07/28/23 07/29/23 07/30/23 07/31/23 23:59 23:59 23:59 23:59 Intake Total 4080 / 4080 4710 / 4710 5084 / 5084 620 / 620 Output Total 2700 / 2700 2775 / 2775 3250 / 3250 900 / 900 Balance 1380 / 1380 1935 / 1935 1834 / 1834 -280 / -280 Physical Exam Oriented: Normal Eyes: Normal Ear: Normal Nose: Normal Throat: Normal Respiratory: Generalized and Diminished Cardiovascular: Normal Auscultation: Bowel Sounds: Normal Tenderness: Normal Skin: Normal Musculoskeletal: Normal Psychiatric: Normal Mood Description: Calm Affect: Normal Speech Pattern: Clear and Appropriate Laboratory and Diagnostics 07/31/23 05:37 07/31/23 05:37 Labs: 07/21/23 12:58 Blood Blood Culture - Final 07/21/23 12:48 Blood Blood Culture - Final 07/21/23 18:58 Sputum - Expectorated Sputum Sputum Culture - Final 07/21/23 18:58 Sputum - Expectorated Sputum - Final Laboratory WBC 6.6 X10^3/uL (3.6-10.0) 07/31/23 05:37 RBC 4.30 X10^6/uL (4.7-6.0) L 07/31/23 05:37 Hgb 10.3 g/dL (13.5-18.0) L 07/31/23 05:37 Hct 32.5 % (42.0-54.0) L 07/31/23 05:37 MCV 75.5 fL (80.0-100.0) L 07/31/23 05:37 MCH 24.0 pg (27.0-34.0) L 07/31/23 05:37 MCHC 31.8 g/dL (33.0-35.0) L 07/31/23 05:37 RDW 16.4 % (11.6-16.5) 07/31/23 05:37 Plt Count 228 X10^3/uL (150.0-450.0) 07/31/23 05:37 Plt Count Comment Adequate (ADEQUATE) 07/27/23 04:20 MPV 8.8 fL (7.4-11.0) 07/31/23 05:37 Neut % (Auto) 66.6 % (42.0-75.0) 07/31/23 05:37 Lymph % (Auto) 17.4 % (21.0-51.0) L 07/31/23 05:37 [place] % (Auto) 12.2 % (0.0-13.0) 07/31/23 05:37 Eos % (Auto) 3.2 % (0.9-2.9) H 07/31/23 05:37 Baso % (Auto) 0.6 % (0.2-1.0) 07/31/23 05:37 Neut # (Auto) 4.4 x10^3/uL (2.2-4.8) 07/31/23 05:37 Lymph # (Auto) 1.2 X10^3/uL (1.3-2.9) L 07/31/23 05:37 [place] # (Auto) 0.8 x10^3/uL (0.3-0.8) 07/31/23 05:37 Eos # (Auto) 0.2 x10^3/uL (0.0-0.2) 07/31/23 05:37 Baso # (Auto) 0.0 X10^3/uL (0.0-0.1) 07/31/23 05:37 Absolute Nucleated RBC 0.1 /100WBC 07/31/23 05:37 Plt Morphology Comment Normal (NORMAL) 07/27/23 04:20 RBC Morphology Abnormal (NORMAL) 07/27/23 04:20 Hypochromasia 1+ A 07/27/23 04:20 Microcytosis Slight A 07/27/23 04:20 Sodium 135 mmol/L (136-145) L 07/31/23 05:37 Corrected Sodium TNP 07/31/23 05:37 Potassium 4.8 mmol/L (3.5-5.1) 07/31/23 05:37 Chloride 99 mmol/L (98-107) 07/31/23 05:37 Carbon Dioxide 31.3 mmol/L (21-32) 07/31/23 05:37 BUN 8 mg/dL (7-18) 07/31/23 05:37 Creatinine 0.73 mg/dL (0.70-1.30) 07/31/23 05:37 Est GFR (MDRD) Af Amer > 60 (>60) 07/31/23 05:37 Est GFR (MDRD) Non-Af > 60 (>60) 07/31/23 05:37 Glucose 98 mg/dL (65-99) 07/31/23 05:37 Calcium 9.2 mg/dL (8.5-10.1) 07/31/23 05:37 Corrected Calcium TNP 07/31/23 05:37 Magnesium 2.3 mg/dL (2.0-2.9) 07/29/23 05:04 Total Bilirubin 0.20 mg/dL (0.2-1.0) 07/31/23 05:37 AST 19 Units/L (15-37) 07/31/23 05:37 ALT 19 Units/L (12-78) 07/31/23 05:37 Alkaline Phosphatase 54 Units/L (46-116) 07/31/23 05:37 Total Protein 7.6 g/dL (6.4-8.2) 07/31/23 05:37 Albumin 3.7 g/dL (3.4-5.0) 07/31/23 05:37 Globulin 3.9 g/dL (2.5-4.5) 07/31/23 05:37 Albumin/Globulin Ratio 0.9 Ratio (1.1-2.1) L 07/31/23 05:37 Lipase 42 Units/L (73-393) L 07/20/23 17:42 Carcinoembryonic Ag 0.8 ng/mL 07/21/23 05:54 CA 19-9 Antigen 25 U/mL (<=35) 07/21/23 05:54 Total PSA 1.79 ng/mL (0.13-4.0) 07/21/23 05:54 Specimen Type Catherized urine 07/20/23 19:25 Urine Color [place] (YELLOW) 07/20/23 19:25 Urine Appearance Clear (CLEAR) 07/20/23 19:25 Urine pH 6.0 (5.0 - 8.0) 07/20/23 19:25 Ur Specific [place] 1.025 (1.000-1.030) 07/20/23 19:25 Urine Protein 2+ (NEGATIVE) 07/20/23 19:25 Urine Glucose (UA) Negative (NEGATIVE) 07/20/23 19: Urine Ketones 4+ (NEGATIVE) 07/20/23 19: Urine Blood 2+ (NEGATIVE) 07/20/23 19: Urine Nitrite Negative (NEGATIVE) 07/20/23 19:25 Urine Bilirubin 1+ (NEGATIVE) 07/20/23 19:25 Urine Urobilinogen 1+ (NORMAL) 07/20/23 19:25 Ur Leukocyte Esterase 1+ (NEGATIVE) 07/20/23 19:25 Urine RBC 3-5 /HPF (0-3) A 07/20/23 19:25 Urine WBC 0-2 /HPF (0-5) 07/20/23 19:25 Ur Squamous Epith Cells Few /HPF (NEGATIVE) 07/20/23 19:25 Urine Bacteria Trace /HPF (NEGATIVE) 07/20/23 19:25 Hyaline Casts Moderate /LPF (NEGATIVE) 07/20/23 19:25 Urine Mucus Moderate /HPF (NEGATIVE) 07/20/23 19:25 Ur Culture Indicated? No/not indicated 07/20/23 19:25 Tissue Pathology See comment. 07/22/23 08:50 Plan (1) Squamous cell carcinoma of esophagus: Status: Acute (2) Dehydration: Status: Acute (3) Acute bronchitis: Status: Acute Qualifiers: Bronchitis organism: unspecified organism Qualified Code(s): J20.9 - Acute bronchitis, unspecified (4) Physical deconditioning: Status: Acute Plan: PT/OT (5) Dysphagia: Status: Acute Qualifiers: Dysphagia type: unspecified Qualified Code(s): R13.10 - Dysphagia, unspecified (6) Generalized weakness: Status: Acute (7) Weight loss: Status: Acute (8) CAD (coronary artery disease): Status: Chronic Qualifiers: Associated angina: unspecified whether angina present Coronary Disease- Associated Artery/Lesion type: [place] artery [place] vs. transplanted heart: [place] heart Qualified Code(s): I25.10 - Atherosclerotic heart disease of [place] coronary artery without angina pectoris (9) Dyslipidemia: Status: Chronic (10) Hypertension: Status: Chronic Qualifiers: Hypertension type: primary hypertension Qualified Code(s): I10 - Essential (primary) hypertension
[2023-07-31] MEDS: COLACE CAP 100 MG PO SCH (21:25)
[2023-08-01] MEDS: D5 1/2 NS 1,000 ML 1,000 ML IV SCH ×3 (01:17→17:27)
[2023-08-01] MEDS: CARAFATE PO SCH ×3 (05:53→22:00)
[2023-08-01 06:26] LABS: EOSINOPHILS # (AUTO) 0.3 x10^3/uL (0.0-0.2); MEAN CORPUSCULAR HEMOGLOBIN 24.1 pg (27.0-34.0); MEAN CORPUSCULAR HGB CONC 31.9 g/dL (33.0-35.0)
[2023-08-01 06:29] LABS: BASOPHILS % (AUTO) 0.4 % (0.2-1.0); EOSINOPHILS % (AUTO) 3.6 % (0.9-2.9); HEMATOCRIT 32.3 % (42.0-54.0); HEMOGLOBIN 10.3 g/dL (13.5-18.0); LYMPHOCYTES # (AUTO) 1.5 X10^3/uL (1.3-2.9); LYMPHOCYTES % (AUTO) 19.3 % (21.0-51.0); MEAN CORPUSCULAR VOLUME 75.6 fL (80.0-100.0); MEAN PLATELET VOLUME 9.2 fL (7.4-11.0); MONOCYTES # (AUTO) 0.9 x10^3/uL (0.3-0.8); MONOCYTES % (AUTO) 11.3 % (0.0-13.0); NEUTROPHILS # (AUTO) 5.1 x10^3/uL (2.2-4.8); NEUTROPHILS % (AUTO) 65.4 % (42.0-75.0); PLATELET COUNT 204 X10^3/uL (150.0-450.0); RED BLOOD COUNT 4.27 X10^6/uL (4.7-6.0); RED CELL DISTRIBUTION WIDTH 16.5 % (11.6-16.5)
[2023-08-01 06:37] LABS: ALANINE AMINOTRANSFERASE 19 Units/L (12-78); ALBUMIN 3.8 g/dL (3.4-5.0); ALKALINE PHOSPHATASE 53 Units/L (46-116); ASPARTATE AMINO TRANSFERASE 22 Units/L (15-37); BLOOD UREA NITROGEN 7 mg/dL (7-18); CALCIUM 8.9 mg/dL (8.5-10.1); CARBON DIOXIDE 31.9 mmol/L (21-32); CHLORIDE 99 mmol/L (98-107); CREATININE 0.69 mg/dL (0.70-1.30); GLUCOSE 98 mg/dL (65-99); POTASSIUM 4.2 mmol/L (3.5-5.1); SODIUM 136 mmol/L (136-145); TOTAL PROTEIN 7.5 g/dL (6.4-8.2); eGFR NON BLACK RACES > 60 (>60)
[2023-08-01 07:01] LABS: PLATELET MORPHOLOGY COMMENT NORMAL (NORMAL); WHITE BLOOD COUNT 7.8 X10^3/uL (3.6-10.0)
[2023-08-01 07:02] LABS: HYPOCHROMASIA SLIGHT; MICROCYTOSIS SLIGHT
--- NOTE | 2023-08-01 07:33 | PCM.PROG ---
Progress Note - Progress Note for Day of Date of Exam: 07/29/23 - Subjective Subjective: IS A 73 YEAR OLD PATIENT OF OURS. HE HAS A PMH OF CAD, DYSLIPIDEMIA, HTN, MD. 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 HE IS DAY 3 STATUS POST PLACEMENT OF A PEG TUBE. HE IS RECEIVING PEG TUBE FEEDINGS VIA PUMP AT 40 ML/HR. TODAY, HE IS ALERT, SITTING UP IN BED ON MORNING ROUNDS. HE CONTINUES TO COMPLAIN OF WEAKNESS AND DIFFICULTY SWALLOWING. HE HAS A NON-PRODUCTIVE COUGH THIS MORNING AND CONTINUES TO HAVE DIFFICULTY SWALLOWING. ON EXAMINATION, HEART IS REGULAR IN RATE AND RHYTHM. BILATERAL LUNGS ARE NOTED WITH DIMINISHED LUNG SOUNDS THROUGHOUT. ABDOMEN IS FLAT, SOFT, AND NON-TENDER WITH NORMAL BOWEL SOUNDS NOTED IN ALL QUADRANTS. PEG TUBE NOTED. WEAKNESS OF UPPER AND LOWER EXTREMITIES NOTED. NO EDEMA IS NOTED. HIS VITALS THIS MORNING ARE: 98.6-86-18-100%-151/95. LABS WERE OBTAINED. WBC 5.0, RBC 4.02, HGB 9.8, HCT 30.2, PLT COUNT 222, SODIUM 136, POTASSIUM 4.3, CHLORIDE 100, CARBON DIOXIDE 30.7, BUN 7, CREATININE 0.68, GLUCOSE 102, CALCIUM 8.4, AST 18, ALT 16, ALK PHOS 50, TOTAL PROTEIN 6.8, ALBUMIN 3.0. HE IS CURRENTLY RECEIVING: D5NS AT 125 ML/HR, ROCEPHIN 1G IV DAILY, ALBUMIN 25% IV DAILY, DUONEBS QID, COLACE 100MG HS, MORPHINE SULFATE 1-2MG IV Q4H PRN, NYSTATIN 5ML PO QID, NORCO 7.5/325MG QID PRN, NORVASC 5MG DAILY, CARAFATE 1G TID, PROTONIX 40MG BID. WE WILL HAVE PHYSICAL THERAPY WORK WITH HIM TODAY. WE WILL CONTINUE TO ADVANCE HIS TUBE FEEDINGS UNTIL WE ARE ABLE TO DO BOLUS FEEDINGS. OTHERWISE, WE WILL FOLLOW UP WITH AM LABS AND CONTINUE TO MONITOR. TIME SPENT ON CLINICAL ASSESSMENT, REVIEWING LABS AND IMAG ING, DECISION MAKING, AND DOCUMENTATION GREATER THAN 45 MINUTES. - Past Medical Family Social History Past Med/Fam/Surg Hx: No changes since H&P Allergies: Allergies lisinopril Allergy (Verified 11/19/21 10:21) - Review of Systems ROS: No change since H&P - Vital Signs and I&O's Vital Signs: Vital Signs Temperature 98.7 F Temperature 98.4 F Pulse Rate [Right Radial] 81 Pulse Rate [Right Radial] 83 Respiratory Rate 22 Respiratory Rate 18 Blood Pressure [Right Arm] 115/57 Blood Pressure [Right Arm] 125/77 O2 Sat by Pulse Oximetry 99 O2 Sat by Pulse Oximetry 100 Intake and Output: Intake & Output 07/29/23 07/30/23 07/31/23 08/01/23 11:59 11:59 11:59 11:59 Intake Total 4270 / 4270 5630 / 5630 3394 / 3394 1220 / 1220 Output Total 2900 / 2900 2875 / 2875 2750 / 2750 3230 / 3230 Balance 1370 / 1370 2755 / 2755 644 / 644 -2009 / - Physical Exam Oriented: Normal Eyes: Normal Ear: Normal Nose: Normal Throat: Normal Respiratory: Generalized, Diminished Cardiovascular: Normal : Normal Auscultation: Bowel Sounds: Normal Palpation: Normal Tenderness: Normal Skin: Normal Musculoskeletal: Normal Psychiatric: Normal Mood Description: Calm Affect: Normal Speech Pattern: Clear, Appropriate - Laboratory and Diagnostics Result Diagrams: 08/01/23 05:00 08/01/23 05:00 Labs: 07/21/23 12:58 Blood Blood Culture - Final 07/21/23 12:48 Blood Blood Culture - Final 07/21/23 18:58 Sputum - Expectorated Sputum Sputum Culture - Final 07/21/23 18:58 Sputum - Expectorated Sputum - Final Laboratory WBC 7.8 X10^3/uL (3.6-10.0) 08/01/23 05:00 RBC 4.27 X10^6/uL (4.7-6.0) L 08/01/23 05:00 Hgb 10.3 g/dL (13.5-18.0) L 08/01/23 05:00 Hct 32.3 % (42.0-54.0) L 08/01/23 05:00 MCV 75.6 fL (80.0-100.0) L 08/01/23 05:00 MCH 24.1 pg (27.0-34.0) L 08/01/23 05:00 MCHC 31.9 g/dL (33.0-35.0) L 08/01/23 05:00 RDW 16.5 % (11.6-16.5) 08/01/23 05:00 Plt Count 204 X10^3/uL (150.0-450.0) 08/01/23 05:00 Plt Count Comment Adequate (ADEQUATE) 08/01/23 05:00 MPV 9.2 fL (7.4-11.0) 08/01/23 05:00 Neut % (Auto) 65.4 % (42.0-75.0) 08/01/23 05:00 Lymph % (Auto) 19.3 % (21.0-51.0) L 08/01/23 05:00 [place] % (Auto) 11.3 % (0.0-13.0) 08/01/23 05:00 Eos % (Auto) 3.6 % (0.9-2.9) H 08/01/23 05:00 Baso % (Auto) 0.4 % (0.2-1.0) 08/01/23 05:00 Neut # (Auto) 5.1 x10^3/uL (2.2-4.8) H 08/01/23 05:00 Lymph # (Auto) 1.5 X10^3/uL (1.3-2.9) 08/01/23 05:00 [place] # (Auto) 0.9 x10^3/uL (0.3-0.8) H 08/01/23 05:00 Eos # (Auto) 0.3 x10^3/uL (0.0-0.2) H 08/01/23 05:00 Baso # (Auto) 0.0 X10^3/uL (0.0-0.1) 08/01/23 05:00 Absolute Nucleated RBC 0.2 /100WBC 08/01/23 05:00 Plt Clumps, EDTA Few 08/01/23 05:00 Plt Morphology Comment Normal (NORMAL) 08/01/23 05:00 RBC Morphology Abnormal (NORMAL) 08/01/23 05:00 Hypochromasia Slight A 08/01/23 05:00 Microcytosis Slight A 08/01/23 05:00 Sodium 136 mmol/L (136-145) 08/01/23 05:00 Corrected Sodium TNP 08/01/23 05:00 Potassium 4.2 mmol/L (3.5-5.1) 08/01/23 05:00 Chloride 99 mmol/L (98-107) 08/01/23 05:00 Carbon Dioxide 31.9 mmol/L (21-32) 08/01/23 05:00 BUN 7 mg/dL (7-18) 08/01/23 05:00 Creatinine 0.69 mg/dL (0.70-1.30) L 08/01/23 05:00 Est GFR (MDRD) Af Amer > 60 (>60) 08/01/23 05:00 Est GFR (MDRD) Non-Af > 60 (>60) 08/01/23 05:00 Glucose 98 mg/dL (65-99) 08/01/23 05:00 Calcium 8.9 mg/dL (8.5-10.1) 08/01/23 05:00 Corrected Calcium TNP 08/01/23 05:00 Magnesium 2.3 mg/dL (2.0-2.9) 07/29/23 05:04 Total Bilirubin 0.20 mg/dL (0.2-1.0) 08/01/23 05:00 AST 22 Units/L (15-37) 08/01/23 05:00 ALT 19 Units/L (12-78) 08/01/23 05:00 Alkaline Phosphatase 53 Units/L (46-116) 08/01/23 05:00 Total Protein 7.5 g/dL (6.4-8.2) 08/01/23 05:00 Albumin 3.8 g/dL (3.4-5.0) 08/01/23 05:00 Globulin 3.7 g/dL (2.5-4.5) 08/01/23 05:00 Albumin/Globulin Ratio 1.0 Ratio (1.1-2.1) L 08/01/23 05:00 Lipase 42 Units/L (73-393) L 07/20/23 17:42 Carcinoembryonic Ag 0.8 ng/mL 07/21/23 05:54 CA 19-9 Antigen 25 U/mL (<=35) 07/21/23 05:54 Total PSA 1.79 ng/mL (0.13-4.0) 07/21/23 05:54 Specimen Type Catherized urine 07/20/23 19: Urine Color [place] (YELLOW) 07/20/23 19: Urine Appearance Clear (CLEAR) 07/20/23 19: Urine pH 6.0 (5.0 - 8.0) 07/20/23 19:25 Ur Specific [place] 1.025 (1.000-1.030) 07/20/23 19: Urine Protein 2+ (NEGATIVE) 07/20/23 19: Urine Glucose (UA) Negative (NEGATIVE) 07/20/23 19: Urine Ketones 4+ (NEGATIVE) 07/20/23: Urine Blood 2+ (NEGATIVE) 07/20/23: Urine Nitrite Negative (NEGATIVE) 07/20/23: Urine Bilirubin 1+ (NEGATIVE) 07/20/23: Urine Urobilinogen 1+ (NORMAL) 07/20/23 19: Ur Leukocyte Esterase 1+ (NEGATIVE) 07/20/23: Urine RBC 3-5 /HPF (0-3) A 07/20/23 19:25 Urine WBC 0-2 /HPF (0-5) 07/20/23 19:25 Ur Squamous Epith Cells Few /HPF (NEGATIVE) 07/20/23 19:25 Urine Bacteria Trace /HPF (NEGATIVE) 07/20/23: Hyaline Casts Moderate /LPF (NEGATIVE) 07/20/23 19:25 Urine Mucus Moderate /HPF (NEGATIVE) 07/20/23 19:25 Ur Culture Indicated? No/not indicated 07/20/23: Tissue Pathology See comment. 07/22/23 08:50 - Plan (1) Squamous cell carcinoma of esophagus Status: Acute Plan: D5NS AT 125 ML/HR, ROCEPHIN 1G IV DAILY, ALBUMIN 25% IV DAILY, DUONEBS QID, MORPHINE SULFATE 1-2MG IV Q4H PRN, NYSTATIN 5ML PO QID, NORCO 7.5/325MG QID PRN, CARAFATE 1G TID, PROTONIX 40MG BID. PEG TUBE FEEDINGS, PT/OT (2) Dehydration Status: Acute (3) Acute bronchitis Status: Acute Qualifiers: Bronchitis organism: unspecified organism Qualified Code(s): J20.9 - Acute bronchitis, unspecified (4) Physical deconditioning Status: Acute Plan: PT/OT (5) Dysphagia Status: Acute Qualifiers: Dysphagia type: unspecified Qualified Code(s): R13.10 - Dysphagia, unspecified (6) Generalized weakness Status: Acute (7) Weight loss Status: Acute (8) CAD (coronary artery disease) Status: Chronic Qualifiers: Coronary Disease-Associated Artery/Lesion type: [place] artery [place] vs. transplanted heart: [place] heart Associated angina: unspecified whether angina present Qualified Code(s): I25.10 - Atherosclerotic heart disease of [place] coronary artery without angina pectoris (9) Dyslipidemia Status: Chronic (10) Hypertension Status: Chronic Qualifiers: Hypertension type: primary hypertension Qualified Code(s): I10 - Essential (primary) hypertension
[2023-08-01] MEDS: NORCO 7.5/325 MG TAB PO PRN (07:39)
[2023-08-01] MEDS: DUONEB 0.5 MG/3 MG (3 mL) NEB SCH ×4 (09:37→20:35)
[2023-08-01] MEDS ORDERED: FIORICET TAB PO PRN (10:22)
[2023-08-01] MEDS: CYTOTEC PO SCH ×2 (10:45→21:00)
[2023-08-01] MEDS: ALBUMIN HUMAN 25%- 100 ML 100 ML IV SCH (10:45)
[2023-08-01] MEDS: MILK OF MAGNESIA PO SCH (10:45)
[2023-08-01] MEDS: NYSTATIN SUSP PO SCH ×4 (10:50→22:10)
[2023-08-01] MEDS: PROTONIX INJ 40 MG VIAL IVP SCH ×2 (10:50→22:10)
[2023-08-01] MEDS: ROCEPHIN VIAL 1 GRAM 1 G in NS 100 ML IV 100 ML IV SCH (10:50)
[2023-08-01] MEDS: NORVASC TAB 5 MG PO SCH (10:50)
[2023-08-01] MEDS: TUSSIONEX PENNKINETIC SUSP PO SCH ×2 (11:37→22:08)
--- NOTE | 2023-08-01 12:42 | PCM.PROG ---
Progress Note - Progress Note for Day of Date of Exam: 08/01/23 - Subjective Subjective: IS A 73 YEAR OLD PATIENT OF OURS. HE HAS A PMH OF CAD, DYSLIPIDEMIA, HTN, ND. 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 A PEG TUBE WAS PLACED LAST WEEK. HE HAS TOLERATED FEEDINGS VIA THE FEEDING PUMP WELL. TODAY, HE IS ALERT, SITTING UP IN BED ON MORNING ROUNDS. HE CONTINUES TO COMPLAIN OF WEAKNESS, DIFFICULTY SWALLOWING, COUGH, AND ALSO COMPLAINS OF AN INTRACTABLE HEADACHE. HE REPORTS THAT HEADACHE STARTED TUESDAY OR TUESDAY. ON EXAMINATION, HEART IS REGULAR IN RATE AND RHYTHM. BILATERAL LUNGS ARE NOTED WITH DIMINISHED LUNG SOUNDS THROUGHOUT. ABDOMEN IS FLAT, SOFT, AND NON-TENDER WITH NORMAL BOWEL SOUNDS NOTED IN ALL QUADRANTS. PEG TUBE NOTED. WEAKNESS OF UPPER AND LOWER EXTREMITIES NOTED. NO EDEMA IS NOTED. HIS VITALS THIS MORNING ARE: 98.7-80-20-100%-138/82. LABS WERE OBTAINED. WBC 7.8, RBC 4.27, HGB 10.3, HCT 32.3, PLT COUNT 204, SODIUM 136, POTASSIUM 4.2, CHLORIDE 99, BUN 7, CREATININE 0.69, GLUCOSE 98, TOTAL BILI 0.22, AST 22, ALT 19, ALK PHOS 53, TOTAL PROTEIN 7.5, ALBUMIN 3.8. HE IS CURRENTLY RECEIVING: D5NS AT 125 ML/HR, ROCEPHIN 1G IV DAILY, ALBUMIN 25% IV DAILY, DUONEBS QID, COLACE 100MG HS, MORPHINE SULFATE 1- 2MG IV Q4H PRN, NYSTATIN 5ML PO QID, NORCO 7.5/325MG QID PRN, NORVASC 5MG DAILY, CARAFATE 1G TID, PROTONIX 40MG BID. WE WILL HAVE PHYSICAL THERAPY WORK WITH HIM TODAY. WE WILL CHANGE HIM TO BOLUS FEEDINGS, JEVITY 1.5 8OZ QID. WE WILL OBTAIN A BRAIN CT WITHOUT CONTRAST TO RULE OUT METASTATIC DISEASE. WE WILL ALSO ADD FIORICET 2 TABS Q8H PRN AND TUSSIONEX 5ML Q12H. OTHERWISE, WE WILL FOLLOW UP WITH AM LABS AND CONTINUE TO MONITOR. TIME SPENT ON CLINICAL ASSESSMENT, REVIEWING LABS AND IMAGING, DECISION MAKING, AND DOCUMENTATION GREATER THAN 45 MINUTES. - Past Medical Family Social History Past Med/Fam/Surg Hx: No changes since H&P Allergies: Allergies lisinopril Allergy (Verified 11/19/21 10:21) - Review of Systems ROS: No change since H&P - Vital Signs and I&O's Vital Signs: Vital Signs Temperature 97.9 F Temperature 98.7 F Pulse Rate [Right Radial] 76 Pulse Rate [Right Radial] 80 Respiratory Rate 20 Respiratory Rate 20 Respiratory Rate 20 Respiratory Rate 20 Blood Pressure [Right Arm] 127/68 Blood Pressure [Right Arm] 138/82 O2 Sat by Pulse Oximetry 100 O2 Sat by Pulse Oximetry 100 Intake and Output: Intake & Output 07/30/23 07/31/23 08/01/23 08/02/23 11:59 11:59 11:59 11:59 Intake Total 5630 / 5630 3394 / 3394 1220 / 1220 Output Total 2875 / 2875 2750 / 2750 3230 / 3230 Balance 2755 / 2755 644 / 644 -2009 / - Physical Exam Oriented: Normal Eyes: Normal Ear: Normal Nose: Normal Throat: Exudate Respiratory: Generalized, Diminished Cardiovascular: Normal : Normal Auscultation: Bowel Sounds: Normal Palpation: Normal Tenderness: Normal Skin: Normal Musculoskeletal: Normal Psychiatric: Normal Mood Description: Calm Affect: Normal Speech Pattern: Clear, Appropriate - Laboratory and Diagnostics Result Diagrams: 08/01/23 05:00 08/01/23 05:00 Labs: 07/21/23 12:58 Blood Blood Culture - Final 07/21/23 12:48 Blood Blood Culture - Final 07/21/23 18:58 Sputum - Expectorated Sputum Sputum Culture - Final 07/21/23 18:58 Sputum - Expectorated Sputum - Final Laboratory WBC 7.8 X10^3/uL (3.6-10.0) 08/01/23 05:00 RBC 4.27 X10^6/uL (4.7-6.0) L 08/01/23 05:00 Hgb 10.3 g/dL (13.5-18.0) L 08/01/23 05:00 Hct 32.3 % (42.0-54.0) L 08/01/23 05:00 MCV 75.6 fL (80.0-100.0) L 08/01/23 05:00 MCH 24.1 pg (27.0-34.0) L 08/01/23 05:00 MCHC 31.9 g/dL (33.0-35.0) L 08/01/23 05:00 RDW 16.5 % (11.6-16.5) 08/01/23 05:00 Plt Count 204 X10^3/uL (150.0-450.0) 08/01/23 05:00 Plt Count Comment Adequate (ADEQUATE) 08/01/23 05:00 MPV 9.2 fL (7.4-11.0) 08/01/23 05:00 Neut % (Auto) 65.4 % (42.0-75.0) 08/01/23 05:00 Lymph % (Auto) 19.3 % (21.0-51.0) L 08/01/23 05:00 [place] % (Auto) 11.3 % (0.0-13.0) 08/01/23 05:00 Eos % (Auto) 3.6 % (0.9-2.9) H 08/01/23 05:00 Baso % (Auto) 0.4 % (0.2-1.0) 08/01/23 05:00 Neut # (Auto) 5.1 x10^3/uL (2.2-4.8) H 08/01/23 05:00 Lymph # (Auto) 1.5 X10^3/uL (1.3-2.9) 08/01/23 05:00 [place] # (Auto) 0.9 x10^3/uL (0.3-0.8) H 08/01/23 05:00 Eos # (Auto) 0.3 x10^3/uL (0.0-0.2) H 08/01/23 05:00 Baso # (Auto) 0.0 X10^3/uL (0.0-0.1) 08/01/23 05:00 Absolute Nucleated RBC 0.2 /100WBC 08/01/23 05:00 Plt Clumps, EDTA Few 08/01/23 05:00 Plt Morphology Comment Normal (NORMAL) 08/01/23 05:00 RBC Morphology Abnormal (NORMAL) 08/01/23 05:00 Hypochromasia Slight A 08/01/23 05:00 Microcytosis Slight A 08/01/23 05:00 Sodium 136 mmol/L (136-145) 08/01/23 05:00 Corrected Sodium TNP 08/01/23 05:00 Potassium 4.2 mmol/L (3.5-5.1) 08/01/23 05:00 Chloride 99 mmol/L (98-107) 08/01/23 05:00 Carbon Dioxide 31.9 mmol/L (21-32) 08/01/23 05:00 BUN 7 mg/dL (7-18) 08/01/23 05:00 Creatinine 0.69 mg/dL (0.70-1.30) L 08/01/23 05:00 Est GFR (MDRD) Af Amer > 60 (>60) 08/01/23 05:00 Est GFR (MDRD) Non-Af > 60 (>60) 08/01/23 05:00 Glucose 98 mg/dL (65-99) 08/01/23 05:00 Calcium 8.9 mg/dL (8.5-10.1) 08/01/23 05:00 Corrected Calcium TNP 08/01/23 05:00 Magnesium 2.3 mg/dL (2.0-2.9) 07/29/23 05:04 Total Bilirubin 0.20 mg/dL (0.2-1.0) 08/01/23 05:00 AST 22 Units/L (15-37) 08/01/23 05:00 ALT 19 Units/L (12-78) 08/01/23 05:00 Alkaline Phosphatase 53 Units/L (46-116) 08/01/23 05:00 Total Protein 7.5 g/dL (6.4-8.2) 08/01/23 05:00 Albumin 3.8 g/dL (3.4-5.0) 08/01/23 05:00 Globulin 3.7 g/dL (2.5-4.5) 08/01/23 05:00 Albumin/Globulin Ratio 1.0 Ratio (1.1-2.1) L 08/01/23 05:00 Lipase 42 Units/L (73-393) L 07/20/23 17:42 Carcinoembryonic Ag 0.8 ng/mL 07/21/23 05:54 CA 19-9 Antigen 25 U/mL (<=35) 07/21/23 05:54 Total PSA 1.79 ng/mL (0.13-4.0) 07/21/23 05:54 Specimen Type Catherized urine 07/20/23 19:25 Urine Color [place] (YELLOW) 07/20/23 19:25 Urine Appearance Clear (CLEAR) 07/20/23 19: Urine pH 6.0 (5.0 - 8.0) 07/20/23 19: Ur Specific [place] 1.025 (1.000-1.030) 07/20/23 19: Urine Protein 2+ (NEGATIVE) 07/20/23 19: Urine Glucose (UA) Negative (NEGATIVE) 07/20/23: Urine Ketones 4+ (NEGATIVE) 07/20/23: Urine Blood 2+ (NEGATIVE) 07/20/23 19: Urine Nitrite Negative (NEGATIVE) 07/20/23 19: Urine Bilirubin 1+ (NEGATIVE) 07/20/23 19: Urine Urobilinogen 1+ (NORMAL) 07/20/23 19:25 Ur Leukocyte Esterase 1+ (NEGATIVE) 07/20/23 19:25 Urine RBC 3-5 /HPF (0-3) A 07/20/23 19:25 Urine WBC 0-2 /HPF (0-5) 07/20/23 19:25 Ur Squamous Epith Cells Few /HPF (NEGATIVE) 07/20/23 19:25 Urine Bacteria Trace /HPF (NEGATIVE) 07/20/23 19:25 Hyaline Casts Moderate /LPF (NEGATIVE) 07/20/23: Urine Mucus Moderate /HPF (NEGATIVE) 07/20/23 19:25 Ur Culture Indicated? No/not indicated 07/20/23 19:25 Tissue Pathology See comment. 07/22/23 08:50 - Plan (1) Squamous cell carcinoma of esophagus Status: Acute Plan: D5NS AT 125 ML/HR, ROCEPHIN 1G IV DAILY, ALBUMIN 25% IV DAILY, DUONEBS QID, MORPHINE SULFATE 1-2MG IV Q4H PRN, NYSTATIN 5ML PO QID, NORCO 7.5/325MG QID PRN, CARAFATE 1G TID, PROTONIX 40MG BID. PEG TUBE FEEDINGS, PT/OT (2) Dehydration Status: Acute Plan: D5NS AT 100 ML/HR, ROCEPHIN 1G IV DAILY, NYSTATIN 5ML PO QID, NORCO 7.5 /325MG QID PRN, CARAFATE 1G TID, PROTONIX 40MG BID (3) Acute bronchitis Status: Acute Qualifiers: Bronchitis organism: unspecified organism Qualified Code(s): J20.9 - Acute bronchitis, unspecified (4) Physical deconditioning Status: Acute Plan: PT/OT (5) Dysphagia Status: Acute Qualifiers: Dysphagia type: unspecified Qualified Code(s): R13.10 - Dysphagia, unspecified Plan: CONSULT GENERAL SURGERY FOR POSSIBLE EGD (6) Generalized weakness Status: Acute (7) Weight loss Status: Acute Plan: OBTAIN ABDOMEN/PLEVIS CT WITH CONTRAST AND CHEST CT WITH CONTRAST. OBTAIN CEA, PSA, AND CA 19-9 LEVELS (8) CAD (coronary artery disease) Status: Chronic Qualifiers: Coronary Disease-Associated Artery/Lesion type: [place] artery [place] vs. transplanted heart: [place] heart Associated angina: unspecified whether angina present Qualified Code(s): I25.10 - Atherosclerotic heart disease of [place] coronary artery without angina pectoris (9) Dyslipidemia Status: Chronic (10) Hypertension Status: Chronic Qualifiers: Hypertension type: primary hypertension Qualified Code(s): I10 - Essential (primary) hypertension
--- NOTE | 2023-08-01 13:57 | CT ---
EXAM:CT brain without IV contrastHISTORY:Weight loss, shortness of breathCOMPARISON:CT 11/18/2021TECHNIQUE:Multiple axial images of the brain were obtained without IV contrast. Dose reduction techniques including Automated Exposure Control (AEC) and adjustment of mA and kV were utilized.FINDINGS:Visualized portions of the paranasal sinuses and mastoid air cells are clear. No calvarial fracture is seen. No acute intracranial hemorrhage or mass effect is seen. Moderate volume loss is seen in the brain with compensatory enlargement of the ventricular system. Volume loss has slightly worsened since prior study. Areas of diminished density are seen in the basal ganglia, thalami, and supratentorial white matter likely due to small-vessel ischemic changes or treatment related changes. No evidence of acute CVA. No suggestion of metastatic disease is seen.IMPRESSION:Worsening volume loss is seen in the brain with worsening hypodensities in the basal ganglia, thalami, and supratentorial white matter. Findings are probably from chronic small-vessel ischemic disease but treatment related changes or other causes of encephalopathy are not excluded. Consider further evaluation with contrast-enhanced MRI of the brain.THIS IS AN ELECTRONICALLY VERIFIED FINAL [id number]/01/2023 1:54 PM - Electronically signed by Jayden Jameson MD
[2023-08-01] MEDS: COLACE CAP 100 MG PO SCH ×2 (22:09→22:24)
[2023-08-02] MEDS: D5 1/2 NS 1,000 ML 1,000 ML IV SCH ×3 (03:05→17:25)
[2023-08-02] MEDS: CARAFATE PO SCH ×3 (06:21→21:41)
[2023-08-02 06:23] LABS: BASOPHILS % (AUTO) 0.5 % (0.2-1.0); EOSINOPHILS # (AUTO) 0.2 x10^3/uL (0.0-0.2); EOSINOPHILS % (AUTO) 2.3 % (0.9-2.9); HEMATOCRIT 29.6 % (42.0-54.0); HEMOGLOBIN 9.4 g/dL (13.5-18.0); LYMPHOCYTES # (AUTO) 1.2 X10^3/uL (1.3-2.9); LYMPHOCYTES % (AUTO) 13.6 % (21.0-51.0); MEAN CORPUSCULAR HGB CONC 31.9 g/dL (33.0-35.0); MEAN CORPUSCULAR VOLUME 75.4 fL (80.0-100.0); MONOCYTES # (AUTO) 0.8 x10^3/uL (0.3-0.8); MONOCYTES % (AUTO) 8.6 % (0.0-13.0); NEUTROPHILS # (AUTO) 6.8 x10^3/uL (2.2-4.8); PLATELET COUNT 206 X10^3/uL (150.0-450.0); RED BLOOD COUNT 3.92 X10^6/uL (4.7-6.0); RED CELL DISTRIBUTION WIDTH 16.4 % (11.6-16.5); WHITE BLOOD COUNT 9.1 X10^3/uL (3.6-10.0)
[2023-08-02 06:41] LABS: ALANINE AMINOTRANSFERASE 19 Units/L (12-78); ALBUMIN 3.7 g/dL (3.4-5.0); ALKALINE PHOSPHATASE 49 Units/L (46-116); ASPARTATE AMINO TRANSFERASE 22 Units/L (15-37); BLOOD UREA NITROGEN 11 mg/dL (7-18); CALCIUM 8.6 mg/dL (8.5-10.1); CARBON DIOXIDE 31.7 mmol/L (21-32); CHLORIDE 98 mmol/L (98-107); GLUCOSE 91 mg/dL (65-99); POTASSIUM 4.2 mmol/L (3.5-5.1); SODIUM 135 mmol/L (136-145); TOTAL PROTEIN 7.1 g/dL (6.4-8.2); eGFR NON BLACK RACES > 60 (>60)
[2023-08-02] MEDS: DUONEB 0.5 MG/3 MG (3 mL) NEB SCH ×4 (08:10→20:35)
[2023-08-02] MEDS: MILK OF MAGNESIA PO SCH ×2 (11:05→11:41)
[2023-08-02] MEDS: NYSTATIN SUSP PO SCH ×4 (11:05→21:03)
[2023-08-02] MEDS: CYTOTEC PO SCH ×2 (11:06→21:03)
[2023-08-02] MEDS: ALBUMIN HUMAN 25%- 100 ML 100 ML IV SCH (11:06)
[2023-08-02] MEDS: ROCEPHIN VIAL 1 GRAM 1 G in NS 100 ML IV 100 ML IV SCH (11:06)
[2023-08-02] MEDS: PROTONIX INJ 40 MG VIAL IVP SCH ×2 (11:06→21:03)
[2023-08-02] MEDS: NORVASC TAB 5 MG PO SCH (11:06)
[2023-08-02] MEDS: TUSSIONEX PENNKINETIC SUSP PO SCH (11:06)
--- NOTE | 2023-08-02 11:57 | PCM.PROG ---
Progress Note - Progress Note for Day of Date of Exam: 08/02/23 - Subjective Subjective: IS A 73 YEAR OLD PATIENT OF OURS. HE HAS A PMH OF CAD, DYSLIPIDEMIA, HTN, [place]. 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 A PEG TUBE WAS PLACED LAST WEEK. HE HAS TOLERATED BOLUS FEEDINGS WELL. TODAY, HE IS ALERT, SITTING UP IN BED ON MORNING ROUNDS. HE CONTINUES TO COMPLAIN OF WEAKNESS, DIFFICULTY SWALLOWING, AND COUGH. HE DOES ADMIT TO SLIGHT IMPROVEMENT IN COUGH SINCE STARTING THE TUSSIONEX. HE DENIES HEADACHE SINCE RECEIVING THE FIORICET YESTERDAY. ON EXAMINATION, HEART IS REGULAR IN RATE AND RHYTHM. BILATERAL LUNGS ARE NOTED WITH DIMINISHED LUNG SOUNDS THROUGHOUT. ABDOMEN IS FLAT, SOFT, AND NON-TENDER WITH NORMAL BOWEL SOUNDS NOTED IN ALL QUADRANTS. PEG TUBE NOTED. WEAKNESS OF UPPER AND LOWER EXTREMITIES NOTED. NO EDEMA IS NOTED. HIS VITALS THIS MORNING ARE: 99.0-92-20-99%-112/70. LABS WERE OBTAINED. WBC 9.1, RBC 3.92, HGB 9.4, HCT 29.6, PLT COUNT 206, SODIUM 135, POTASSIUM 4.2, CHLORIDE 98, CARBON DIOXIDE 31.7, BUN 11, CREATININE 0.70, GLUCOSE 91, CALCIUM 8.6, TOTAL BILI 0.20, AST 22, ALT 19, ALK PHOS 49, TOTAL PROTEIN 7.1, ALBUMIN 3.7. A BRAIN CT WITHOUT CONTRAST WAS OBTAINED YESTERDAY. IT REVEALED: Worsening volume loss is seen in the brain with worsening hypodensities in the basal ganglia, thalami, and supratentorial white matter. Findings are probably from chronic small-vessel ischemic disease but treatment related changes or other causes of encephalopathy are not excluded. HE IS CURRENTLY RECEIVING: D5NS AT 125 ML/HR, ROCEPHIN 1G IV DAILY, ALBUMIN 25% IV DAILY, DUONEBS QID, COLACE 100MG HS, MORPHINE SULFATE 1- 2MG IV Q4H PRN, NYSTATIN 5ML PO QID, NORCO 7.5/325MG QID PRN, NORVASC 5MG DAILY, CARAFATE 1G TID, PROTONIX 40MG BID, FIORICET 2 TABS Q8H PRN, TUSSIONEX 5ML Q12H. WE WILL HAVE PHYSICAL THERAPY WORK WITH HIM TODAY. HE IS RECEIVING BOLUS FEEDINGS, JEVITY 1.5 8OZ QID. OTHERWISE, WE WILL FOLLOW UP WITH AM LABS AND CONTINUE TO MONITOR. TIME SPENT ON CLINICAL ASSESSMENT, REVIEWING LABS AND IMAGING, DECISION MAKING, AND DOCUMENTATION GREATER THAN 45 MINUTES. - Past Medical Family Social History Past Med/Fam/Surg Hx: No changes since H&P Allergies: Allergies lisinopril Allergy (Verified 11/19/21 10:21) - Review of Systems ROS: No change since H&P - Vital Signs and I&O's Vital Signs: Vital Signs Temperature 99.0 F Temperature 98.7 F Pulse Rate [Right Radial] 92 Pulse Rate [Right Radial] 80 Pulse Rate 96 Respiratory Rate 20 Respiratory Rate 20 Blood Pressure [Right Arm] 112/70 Blood Pressure [Right Arm] 134/80 O2 Sat by Pulse Oximetry 97 O2 Sat by Pulse Oximetry 99 O2 Sat by Pulse Oximetry 100 Intake and Output: Intake & Output 07/30/23 07/31/23 08/01/23 08/02/23 11:59 11:59 11:59 11:59 Intake Total 5630 / 5630 3394 / 3394 1220 / 1220 8013 / 8013 Output Total 2875 / 2875 2750 / 2750 3230 / 3230 1900 / 1900 Balance 2755 / 2755 644 / 644 -2009 / 6113 / 6113 - Physical Exam Oriented: Normal Eyes: Normal Ear: Normal Nose: Normal Throat: Exudate Respiratory: Generalized, Diminished Cardiovascular: Normal : Normal Auscultation: Bowel Sounds: Normal Tenderness: Normal Skin: Normal Musculoskeletal: Normal Psychiatric: Normal Mood Description: Calm Affect: Normal Speech Pattern: Clear, Appropriate - Laboratory and Diagnostics Result Diagrams: 08/02/23 04:55 08/02/23 04:55 Labs: 07/21/23 12:58 Blood Blood Culture - Final 07/21/23 12:48 Blood Blood Culture - Final 07/21/23 18:58 Sputum - Expectorated Sputum Sputum Culture - Final 07/21/23 18:58 Sputum - Expectorated Sputum - Final Laboratory WBC 9.1 X10^3/uL (3.6-10.0) 08/02/23 04:55 RBC 3.92 X10^6/uL (4.7-6.0) L 08/02/23 04:55 Hgb 9.4 g/dL (13.5-18.0) L 08/02/23 04:55 Hct 29.6 % (42.0-54.0) L 08/02/23 04:55 MCV 75.4 fL (80.0-100.0) L 08/02/23 04:55 MCH 24.0 pg (27.0-34.0) L 08/02/23 04:55 MCHC 31.9 g/dL (33.0-35.0) L 08/02/23 04:55 RDW 16.4 % (11.6-16.5) 08/02/23 04:55 Plt Count 206 X10^3/uL (150.0-450.0) 08/02/23 04:55 Plt Count Comment Adequate (ADEQUATE) 08/01/23 05:00 MPV 9.0 fL (7.4-11.0) 08/02/23 04:55 Neut % (Auto) 75.0 % (42.0-75.0) 08/02/23 04:55 Lymph % (Auto) 13.6 % (21.0-51.0) L 08/02/23 04:55 [place] % (Auto) 8.6 % (0.0-13.0) 08/02/23 04:55 Eos % (Auto) 2.3 % (0.9-2.9) 08/02/23 04:55 Baso % (Auto) 0.5 % (0.2-1.0) 08/02/23 04:55 Neut # (Auto) 6.8 x10^3/uL (2.2-4.8) H 08/02/23 04:55 Lymph # (Auto) 1.2 X10^3/uL (1.3-2.9) L 08/02/23 04:55 [place] # (Auto) 0.8 x10^3/uL (0.3-0.8) 08/02/23 04:55 Eos # (Auto) 0.2 x10^3/uL (0.0-0.2) 08/02/23 04:55 Baso # (Auto) 0.0 X10^3/uL (0.0-0.1) 08/02/23 04:55 Absolute Nucleated RBC 0.0 /100WBC 08/02/23 04:55 Plt Clumps, EDTA Few 08/01/23 05:00 Plt Morphology Comment Normal (NORMAL) 08/01/23 05:00 RBC Morphology Abnormal (NORMAL) 08/01/23 05:00 Hypochromasia Slight A 08/01/23 05:00 Microcytosis Slight A 08/01/23 05:00 Sodium 135 mmol/L (136-145) L 08/02/23 04:55 Corrected Sodium TNP 08/02/23 04:55 Potassium 4.2 mmol/L (3.5-5.1) 08/02/23 04:55 Chloride 98 mmol/L (98-107) 08/02/23 04:55 Carbon Dioxide 31.7 mmol/L (21-32) 08/02/23 04:55 BUN 11 mg/dL (7-18) 08/02/23 04:55 Creatinine 0.70 mg/dL (0.70-1.30) 08/02/23 04:55 Est GFR (MDRD) Af Amer > 60 (>60) 08/02/23 04:55 Est GFR (MDRD) Non-Af > 60 (>60) 08/02/23 04:55 Glucose 91 mg/dL (65-99) 08/02/23 04:55 Calcium 8.6 mg/dL (8.5-10.1) 08/02/23 04:55 Corrected Calcium TNP 08/02/23 04:55 Magnesium 2.3 mg/dL (2.0-2.9) 07/29/23 05:04 Total Bilirubin 0.20 mg/dL (0.2-1.0) 08/02/23 04:55 AST 22 Units/L (15-37) 08/02/23 04:55 ALT 19 Units/L (12-78) 08/02/23 04:55 Alkaline Phosphatase 49 Units/L (46-116) 08/02/23 04:55 Total Protein 7.1 g/dL (6.4-8.2) 08/02/23 04:55 Albumin 3.7 g/dL (3.4-5.0) 08/02/23 04:55 Globulin 3.4 g/dL (2.5-4.5) 08/02/23 04:55 Albumin/Globulin Ratio 1.1 Ratio (1.1-2.1) 08/02/23 04:55 Lipase 42 Units/L (73-393) L 07/20/23 17:42 Carcinoembryonic Ag 0.8 ng/mL 07/21/23 05:54 CA 19-9 Antigen 25 U/mL (<=35) 07/21/23 05:54 Total PSA 1.79 ng/mL (0.13-4.0) 07/21/23 05:54 Specimen Type Catherized urine 07/20/23 19:25 Urine Color [place] (YELLOW) 07/20/23 19:25 Urine Appearance Clear (CLEAR) 07/20/23 19:25 Urine pH 6.0 (5.0 - 8.0) 07/20/23 19:25 Ur Specific [place] 1.025 (1.000-1.030) 07/20/23 19:25 Urine Protein 2+ (NEGATIVE) 07/20/23 19:25 Urine Glucose (UA) Negative (NEGATIVE) 07/20/23 19:25 Urine Ketones 4+ (NEGATIVE) 07/20/23 19:25 Urine Blood 2+ (NEGATIVE) 07/20/23 19:25 Urine Nitrite Negative (NEGATIVE) 07/20/23 19:25 Urine Bilirubin 1+ (NEGATIVE) 07/20/23 19:25 Urine Urobilinogen 1+ (NORMAL) 07/20/23 19:25 Ur Leukocyte Esterase 1+ (NEGATIVE) 07/20/23 19:25 Urine RBC 3-5 /HPF (0-3) A 07/20/23 19:25 Urine WBC 0-2 /HPF (0-5) 07/20/23 19:25 Ur Squamous Epith Cells Few /HPF (NEGATIVE) 07/20/23 19:25 Urine Bacteria Trace /HPF (NEGATIVE) 07/20/23 19:25 Hyaline Casts Moderate /LPF (NEGATIVE) 07/20/23 19:25 Urine Mucus Moderate /HPF (NEGATIVE) 07/20/23 19:25 Ur Culture Indicated? No/not indicated 07/20/23 19:25 Tissue Pathology See comment. 07/22/23 08:50 - Plan (1) Squamous cell carcinoma of esophagus Status: Acute Plan: D5NS AT 125 ML/HR, ROCEPHIN 1G IV DAILY, ALBUMIN 25% IV DAILY, DUONEBS QID, COLACE 100MG HS, MORPHINE SULFATE 1-2MG IV Q4H PRN, NYSTATIN 5ML PO QID, NORCO 7.5/325MG QID PRN, NORVASC 5MG DAILY, CARAFATE 1G TID, PROTONIX 40MG BID, FIORICET 2 TABS Q8H PRN, TUSSIONEX 5ML Q12H. (2) Dehydration Status: Acute (3) Acute bronchitis Status: Acute Qualifiers: Bronchitis organism: unspecified organism Qualified Code(s): J20.9 - Acute bronchitis, unspecified (4) Physical deconditioning Status: Acute Plan: PT/OT (5) Dysphagia Status: Acute Qualifiers: Dysphagia type: unspecified Qualified Code(s): R13.10 - Dysphagia, unspecified (6) Generalized weakness Status: Acute (7) Weight loss Status: Acute (8) CAD (coronary artery disease) Status: Chronic Qualifiers: Coronary Disease-Associated Artery/Lesion type: [place] artery [place] vs. transplanted heart: [place] heart Associated angina: unspecified whether angina present Qualified Code(s): I25.10 - Atherosclerotic heart disease of [place] coronary artery without angina pectoris (9) Dyslipidemia Status: Chronic (10) Hypertension Status: Chronic Qualifiers: Hypertension type: primary hypertension Qualified Code(s): I10 - Essential (primary) hypertension
[2023-08-02] MEDS: COLACE CAP 100 MG PO SCH (21:03)
[2023-08-03] MEDS: TUSSIONEX PENNKINETIC SUSP PO SCH ×3 (00:35→22:06)
[2023-08-03] MEDS: D5 1/2 NS 1,000 ML 1,000 ML IV SCH ×4 (04:31→22:06)
[2023-08-03] MEDS: CARAFATE PO SCH ×3 (06:19→22:05)
[2023-08-03 06:47] LABS: BASOPHILS % (AUTO) 0.4 % (0.2-1.0); EOSINOPHILS # (AUTO) 0.4 x10^3/uL (0.0-0.2); EOSINOPHILS % (AUTO) 4.3 % (0.9-2.9); HEMATOCRIT 29.3 % (42.0-54.0); HEMOGLOBIN 9.5 g/dL (13.5-18.0); LYMPHOCYTES % (AUTO) 12.2 % (21.0-51.0); MEAN CORPUSCULAR HEMOGLOBIN 24.3 pg (27.0-34.0); MEAN CORPUSCULAR HGB CONC 32.4 g/dL (33.0-35.0); MEAN CORPUSCULAR VOLUME 75.2 fL (80.0-100.0); MONOCYTES # (AUTO) 0.7 x10^3/uL (0.3-0.8); NEUTROPHILS # (AUTO) 6.3 x10^3/uL (2.2-4.8); NEUTROPHILS % (AUTO) 75.1 % (42.0-75.0); PLATELET COUNT 167 X10^3/uL (150.0-450.0); RED CELL DISTRIBUTION WIDTH 16.6 % (11.6-16.5)
[2023-08-03 07:05] LABS: ALANINE AMINOTRANSFERASE 18 Units/L (12-78); ALBUMIN 3.7 g/dL (3.4-5.0); ALKALINE PHOSPHATASE 51 Units/L (46-116); ASPARTATE AMINO TRANSFERASE 16 Units/L (15-37); BLOOD UREA NITROGEN 8 mg/dL (7-18); CALCIUM 8.6 mg/dL (8.5-10.1); CARBON DIOXIDE 32.3 mmol/L (21-32); CHLORIDE 101 mmol/L (98-107); CREATININE 0.73 mg/dL (0.70-1.30); GLUCOSE 104 mg/dL (65-99); SODIUM 136 mmol/L (136-145); eGFR NON BLACK RACES > 60 (>60)
[2023-08-03 07:55] LABS: PLATELET MORPHOLOGY COMMENT NORMAL (NORMAL); WHITE BLOOD COUNT 9.2 X10^3/uL (3.6-10.0)
[2023-08-03 07:56] LABS: POIKILOCYTOSIS SLIGHT; TARGET CELLS 1+
[2023-08-03] MEDS: DUONEB 0.5 MG/3 MG (3 mL) NEB SCH ×4 (09:38→20:03)
[2023-08-03] MEDS: ROCEPHIN VIAL 1 GRAM 1 G in NS 100 ML IV 100 ML IV SCH (10:14)
[2023-08-03] MEDS: ALBUMIN HUMAN 25%- 100 ML 100 ML IV SCH (10:14)
[2023-08-03] MEDS: PROTONIX INJ 40 MG VIAL IVP SCH ×2 (10:14→20:48)
[2023-08-03] MEDS: NYSTATIN SUSP PO SCH ×4 (10:15→20:47)
[2023-08-03] MEDS: NORVASC TAB 5 MG PO SCH (10:15)
[2023-08-03] MEDS: CYTOTEC PO SCH ×2 (10:15→20:47)
[2023-08-03] MEDS: MILK OF MAGNESIA PO SCH (15:31)
[2023-08-03] MEDS: NORCO 7.5/325 MG TAB PO PRN (18:52)
[2023-08-03] MEDS: COLACE CAP 100 MG PO SCH (20:47)
--- NOTE | 2023-08-03 21:39 | PCM.PROG ---
Progress Note - Progress Note for Day of Date of Exam: 08/03/23 - Subjective Subjective: IS A 73 YEAR OLD PATIENT OF OURS. HE HAS A PMH OF CAD, DYSLIPIDEMIA, HTN, [place]. 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 A PEG TUBE WAS PLACED LAST WEEK. HE HAS TOLERATED BOLUS FEEDINGS WELL. TODAY, HE IS ALERT, SITTING UP IN BED ON MORNING ROUNDS. HE CONTINUES TO COMPLAIN OF WEAKNESS, DIFFICULTY SWALLOWING, AND COUGH. HE DOES ADMIT TO SLIGHT IMPROVEMENT IN COUGH SINCE STARTING THE TUSSIONEX. HE DENIES HEADACHE THIS MORNING OR THROUGHOUT THE NIGHT. ON EXAMINATION, HEART IS REGULAR IN RATE AND RHYTHM. BILATERAL LUNGS ARE NOTED WITH DIMINISHED LUNG SOUNDS THROUGHOUT. ABDOMEN IS FLAT, SOFT, AND NON-TENDER WITH NORMAL BOWEL SOUNDS NOTED IN ALL QUADRANTS. PEG TUBE NOTED. WEAKNESS OF UPPER AND LOWER EXTREMITIES NOTED. NO EDEMA IS NOTED. HIS VITALS THIS MORNING ARE: 99.1-91-18-100%-125/79. LABS WERE OBTAINED. WBC 9.2, RBC 3.90, HGB 9.5, HCT 29.3, PLT COUNT 167, SODIUM 136, POTASSIUM 4.0, CHLORIDE 101, BUN 8, CREATININE 0.73, GLUCOSE 104, CALCIUM 8.6, TOTAL BILI 0.30, AST 16, ALT 18, ALK PHOS 51, TOTAL PROTEIN 7.0, ALBUMIN 3.7. HE IS CURRENTLY RECEIVING: D5NS AT 125 ML/HR, ROCEPHIN 1G IV DAILY, ALBUMIN 25% IV DAILY, DUONEBS QID, COLACE 100MG HS, MORPHINE SULFATE 1-2MG IV Q4H PRN, NYSTATIN 5ML PO QID, NORCO 7.5/325MG QID PRN, NORVASC 5MG DAILY, CARAFATE 1G TID, PROTONIX 40MG BID, FIORICET 2 TABS Q8H PRN, TUSSIONEX 5ML Q12H. HE HAS BEEN PARTICIPATING WITH PHYSICAL THERAPY. WE WILL CONTINUE WITH CURRENT PLAN OF CARE TODAY. OTHERWISE, WE WILL FOLLOW UP WITH AM LABS AND CONTINUE TO MONITOR. TIME SPENT ON CLINICAL ASSESSMENT, REVIEWING LABS AND IMAGING, DECISION MAKING, AND DOCUMENTATION GREATER THAN 45 MINUTES. - Past Medical Family Social History Past Med/Fam/Surg Hx: No changes since H&P Allergies: Allergies lisinopril Allergy (Verified 11/19/21 10:21) - Review of Systems ROS: No change since H&P - Vital Signs and I&O's Vital Signs: Vital Signs Temperature 98.6 F Temperature 98.8 F Temperature 98.8 F Pulse Rate [Right Radial] 88 Pulse Rate [Right Radial] 101 Pulse Rate [Right Radial] 101 Pulse Rate 100 Respiratory Rate 18 Respiratory Rate 18 Respiratory Rate 18 Respiratory Rate 18 Respiratory Rate 18 Blood Pressure [Right Arm] 118/70 Blood Pressure [Right Arm] 112/62 Blood Pressure [Right Arm] 112/62 O2 Sat by Pulse Oximetry 96 O2 Sat by Pulse Oximetry 98 O2 Sat by Pulse Oximetry 99 O2 Sat by Pulse Oximetry 99 Intake and Output: Intake & Output 08/01/23 08/02/23 08/03/23 08/04/23 11:59 11:59 11:59 11:59 Intake Total 1220 / 1220 8013 / 8013 3798 / 3798 480 / 480 Output Total 3230 / 3230 2650 / 2650 2100 / 2100 1750 / 1750 Balance -2009 / 5363 / 5363 1698 / 1698 -1270 / -1270 - Physical Exam Oriented: Normal Eyes: Normal Ear: Normal Nose: Normal Throat: Exudate Respiratory: Generalized, Diminished Cardiovascular: Normal : Normal Auscultation: Bowel Sounds: Normal Tenderness: Normal Skin: Normal Musculoskeletal: Normal Psychiatric: Normal Mood Description: Calm Affect: Normal Speech Pattern: Clear, Appropriate - Laboratory and Diagnostics Result Diagrams: 08/03/23 06:14 08/03/23 06:14 Labs: 07/21/23 12:58 Blood Blood Culture - Final 07/21/23 12:48 Blood Blood Culture - Final 07/21/23 18:58 Sputum - Expectorated Sputum Sputum Culture - Final 07/21/23 18:58 Sputum - Expectorated Sputum - Final Laboratory WBC 9.2 X10^3/uL (3.6-10.0) 08/03/23 06:14 RBC 3.90 X10^6/uL (4.7-6.0) L 08/03/23 06:14 Hgb 9.5 g/dL (13.5-18.0) L 08/03/23 06:14 Hct 29.3 % (42.0-54.0) L 08/03/23 06:14 MCV 75.2 fL (80.0-100.0) L 08/03/23 06:14 MCH 24.3 pg (27.0-34.0) L 08/03/23 06:14 MCHC 32.4 g/dL (33.0-35.0) L 08/03/23 06:14 RDW 16.6 % (11.6-16.5) H 08/03/23 06:14 Plt Count 167 X10^3/uL (150.0-450.0) 08/03/23 06:14 Plt Count Comment Adequate (ADEQUATE) 08/03/23 06:14 MPV 9.0 fL (7.4-11.0) 08/03/23 06:14 Neut % (Auto) 75.1 % (42.0-75.0) H 08/03/23 06:14 Lymph % (Auto) 12.2 % (21.0-51.0) L 08/03/23 06:14 [place] % (Auto) 8.0 % (0.0-13.0) 08/03/23 06:14 Eos % (Auto) 4.3 % (0.9-2.9) H 08/03/23 06:14 Baso % (Auto) 0.4 % (0.2-1.0) 08/03/23 06:14 Neut # (Auto) 6.3 x10^3/uL (2.2-4.8) H 08/03/23 06:14 Lymph # (Auto) 1.0 X10^3/uL (1.3-2.9) L 08/03/23 06:14 [place] # (Auto) 0.7 x10^3/uL (0.3-0.8) 08/03/23 06:14 Eos # (Auto) 0.4 x10^3/uL (0.0-0.2) H 08/03/23 06:14 Baso # (Auto) 0.0 X10^3/uL (0.0-0.1) 08/03/23 06:14 Absolute Nucleated RBC 0.2 /100WBC 08/03/23 06:14 Plt Clumps, EDTA Few 08/01/23 05:00 Plt Morphology Comment Normal (NORMAL) 08/03/23 06:14 RBC Morphology Abnormal (NORMAL) 08/03/23 06:14 Hypochromasia Slight A 08/01/23 05:00 Poikilocytosis Slight A 08/03/23 06:14 Microcytosis Slight A 08/01/23 05:00 Target Cells 1+ A 08/03/23 06:14 Sodium 136 mmol/L (136-145) 08/03/23 06:14 Corrected Sodium TNP 08/03/23 06:14 Potassium 4.0 mmol/L (3.5-5.1) 08/03/23 06:14 Chloride 101 mmol/L (98-107) 08/03/23 06:14 Carbon Dioxide 32.3 mmol/L (21-32) H 08/03/23 06:14 BUN 8 mg/dL (7-18) 08/03/23 06:14 Creatinine 0.73 mg/dL (0.70-1.30) 08/03/23 06:14 Est GFR (MDRD) Af Amer > 60 (>60) 08/03/23 06:14 Est GFR (MDRD) Non-Af > 60 (>60) 08/03/23 06:14 Glucose 104 mg/dL (65-99) H 08/03/23 06:14 Calcium 8.6 mg/dL (8.5-10.1) 08/03/23 06:14 Corrected Calcium TNP 08/03/23 06:14 Magnesium 2.3 mg/dL (2.0-2.9) 07/29/23 05:04 Total Bilirubin 0.30 mg/dL (0.2-1.0) 08/03/23 06:14 AST 16 Units/L (15-37) 08/03/23 06:14 ALT 18 Units/L (12-78) 08/03/23 06:14 Alkaline Phosphatase 51 Units/L (46-116) 08/03/23 06:14 Total Protein 7.0 g/dL (6.4-8.2) 08/03/23 06:14 Albumin 3.7 g/dL (3.4-5.0) 08/03/23 06:14 Globulin 3.3 g/dL (2.5-4.5) 08/03/23 06:14 Albumin/Globulin Ratio 1.1 Ratio (1.1-2.1) 08/03/23 06:14 Lipase 42 Units/L (73-393) L 07/20/23 17:42 Carcinoembryonic Ag 0.8 ng/mL 07/21/23 05:54 CA 19-9 Antigen 25 U/mL (<=35) 07/21/23 05:54 Total PSA 1.79 ng/mL (0.13-4.0) 07/21/23 05:54 Specimen Type Catherized urine 07/20/23 19:25 Urine Color [place] (YELLOW) 07/20/23 19:25 Urine Appearance Clear (CLEAR) 07/20/23 19: Urine pH 6.0 (5.0 - 8.0) 07/20/23 19:25 Ur Specific [place] 1.025 (1.000-1.030) 07/20/23 19:25 Urine Protein 2+ (NEGATIVE) 07/20/23 19:25 Urine Glucose (UA) Negative (NEGATIVE) 07/20/23 19: Urine Ketones 4+ (NEGATIVE) 07/20/23 19:25 Urine Blood 2+ (NEGATIVE) 07/20/23 19:25 Urine Nitrite Negative (NEGATIVE) 07/20/23 19: Urine Bilirubin 1+ (NEGATIVE) 07/20/23 19:25 Urine Urobilinogen 1+ (NORMAL) 07/20/23 19:25 Ur Leukocyte Esterase 1+ (NEGATIVE) 07/20/23 19:25 Urine RBC 3-5 /HPF (0-3) A 07/20/23 19:25 Urine WBC 0-2 /HPF (0-5) 07/20/23 19:25 Ur Squamous Epith Cells Few /HPF (NEGATIVE) 07/20/23 19:25 Urine Bacteria Trace /HPF (NEGATIVE) 07/20/23 19:25 Hyaline Casts Moderate /LPF (NEGATIVE) 07/20/23 19:25 Urine Mucus Moderate /HPF (NEGATIVE) 07/20/23 19:25 Ur Culture Indicated? No/not indicated 07/20/23 19:25 Tissue Pathology See comment. 07/22/23 08:50 - Plan (1) Squamous cell carcinoma of esophagus Status: Acute Plan: D5NS AT 125 ML/HR, ROCEPHIN 1G IV DAILY, ALBUMIN 25% IV DAILY, DUONEBS QID, COLACE 100MG HS, MORPHINE SULFATE 1-2MG IV Q4H PRN, NYSTATIN 5ML PO QID, NORCO 7.5/325MG QID PRN, NORVASC 5MG DAILY, CARAFATE 1G TID, PROTONIX 40MG BID, FIORICET 2 TABS Q8H PRN, TUSSIONEX 5ML Q12H. (2) Dehydration Status: Acute Plan: D5NS AT 100 ML/HR, ROCEPHIN 1G IV DAILY, NYSTATIN 5ML PO QID, NORCO 7.5/325MG QID PRN, CARAFATE 1G TID, PROTONIX 40MG BID (3) Acute bronchitis Status: Acute Qualifiers: Bronchitis organism: unspecified organism Qualified Code(s): J20.9 - Acute bronchitis, unspecified (4) Physical deconditioning Status: Acute Plan: PT/OT (5) Dysphagia Status: Acute Qualifiers: Dysphagia type: unspecified Qualified Code(s): R13.10 - Dysphagia, unspecified Plan: CONSULT GENERAL SURGERY FOR POSSIBLE EGD (6) Generalized weakness Status: Acute (7) Weight loss Status: Acute Plan: OBTAIN ABDOMEN/PLEVIS CT WITH CONTRAST AND CHEST CT WITH CONTRAST. OBTAIN CEA, PSA, AND CA 19-9 LEVELS (8) CAD (coronary artery disease) Status: Chronic Qualifiers: Coronary Disease-Associated Artery/Lesion type: [place] artery [place] vs. transplanted heart: [place] heart Associated angina: unspecified whether angina present Qualified Code(s): I25.10 - Atherosclerotic heart disease of [place] coronary artery without angina pectoris (9) Dyslipidemia Status: Chronic (10) Hypertension Status: Chronic Qualifiers: Hypertension type: primary hypertension Qualified Code(s): I10 - Essential (primary) hypertension
[2023-08-03 23:47] VITALS: O2SAT 99
[2023-08-04] MEDS: D5 1/2 NS 1,000 ML 1,000 ML IV SCH ×3 (02:24→12:35)
[2023-08-04] MEDS: CARAFATE PO SCH (05:24)
[2023-08-04 05:26] LABS: BASOPHILS % (AUTO) 0.8 % (0.2-1.0); EOSINOPHILS # (AUTO) 0.3 x10^3/uL (0.0-0.2); EOSINOPHILS % (AUTO) 5.1 % (0.9-2.9); HEMATOCRIT 28.8 % (42.0-54.0); HEMOGLOBIN 9.2 g/dL (13.5-18.0); LYMPHOCYTES # (AUTO) 1.2 X10^3/uL (1.3-2.9); LYMPHOCYTES % (AUTO) 20.7 % (21.0-51.0); MEAN CORPUSCULAR VOLUME 75.1 fL (80.0-100.0); MEAN PLATELET VOLUME 9.1 fL (7.4-11.0); MONOCYTES # (AUTO) 0.6 x10^3/uL (0.3-0.8); MONOCYTES % (AUTO) 10.9 % (0.0-13.0); NEUTROPHILS # (AUTO) 3.7 x10^3/uL (2.2-4.8); NEUTROPHILS % (AUTO) 62.5 % (42.0-75.0); PLATELET COUNT 205 X10^3/uL (150.0-450.0); RED BLOOD COUNT 3.84 X10^6/uL (4.7-6.0); RED CELL DISTRIBUTION WIDTH 16.3 % (11.6-16.5); WHITE BLOOD COUNT 5.9 X10^3/uL (3.6-10.0)
[2023-08-04 05:42] LABS: ALANINE AMINOTRANSFERASE 19 Units/L (12-78); ALBUMIN 3.7 g/dL (3.4-5.0); ALKALINE PHOSPHATASE 52 Units/L (46-116); ASPARTATE AMINO TRANSFERASE 19 Units/L (15-37); BLOOD UREA NITROGEN 7 mg/dL (7-18); CALCIUM 8.5 mg/dL (8.5-10.1); CARBON DIOXIDE 33.2 mmol/L (21-32); CHLORIDE 100 mmol/L (98-107); CREATININE 0.65 mg/dL (0.70-1.30); GLUCOSE 93 mg/dL (65-99); POTASSIUM 3.9 mmol/L (3.5-5.1); SODIUM 135 mmol/L (136-145); eGFR NON BLACK RACES > 60 (>60)
[2023-08-04] MEDS: ROCEPHIN VIAL 1 GRAM 1 G in NS 100 ML IV 100 ML IV SCH (08:31)
[2023-08-04] MEDS: PROTONIX INJ 40 MG VIAL IVP SCH (08:32)
[2023-08-04] MEDS: ALBUMIN HUMAN 25%- 100 ML 100 ML IV SCH (08:32)
[2023-08-04] MEDS: CYTOTEC PO SCH (08:33)
[2023-08-04] MEDS: NORCO 7.5/325 MG TAB PO PRN (08:33)
[2023-08-04] MEDS: NORVASC TAB 5 MG PO SCH (08:33)
[2023-08-04 08:34] VITALS: RESP 18
[2023-08-04] MEDS: NYSTATIN SUSP PO SCH (08:37)
[2023-08-04] MEDS: DUONEB 0.5 MG/3 MG (3 mL) NEB SCH (08:59)
[2023-08-04 12:31] VITALS: BP 131/84; PULSE 113; TEMP 97.5
[2023-08-04] MEDS: MILK OF MAGNESIA PO SCH (12:35)
[2023-08-04] MEDS: TUSSIONEX PENNKINETIC SUSP PO SCH (12:36)
[2023-09-25] MEDS ORDERED: XYLOCAINE 2 % (PLAIN) ONE (09:00)
== END 2023-08-04 11:25 | disposition home health service (06) | DRG 202 ==
LOC: ER 16:44 → MED/SURG 16:44 → OBSVTOIN 20:10 → MED/SURG 21:40
PROVIDERS: ADMIT Internal Medicine; ATTEND Internal Medicine
DX: Z73.89 Other problems related to life management difficulty; Z85.46 Personal history of malignant neoplasm of prostate; I25.2 Old myocardial infarction; K29.51 Unspecified chronic gastritis with bleeding; J20.8 Acute bronchitis due to other specified organisms; R06.02 Shortness of breath; R63.4 Abnormal weight loss; E87.1 Hypo-osmolality and hyponatremia; K22.81 Esophageal polyp; R53.81 Other malaise; I10 Essential (primary) hypertension; E83.42 Hypomagnesemia; M79.605 Pain in left leg; M25.552 Pain in left hip; K22.2 Esophageal obstruction; Z59.86 Financial insecurity; I25.10 Atherosclerotic heart disease of native coronary artery without angina pectoris; W18.39XA Other fall on same level, initial encounter; E78.2 Mixed hyperlipidemia; Z85.818 Personal history of malignant neoplasm of other sites of lip, oral cavity, and pharynx; E86.0 Dehydration; R53.1 Weakness; R13.11 Dysphagia, oral phase; C15.3 Malignant neoplasm of upper third of esophagus; Z91.190 Patient's noncompliance with other medical treatment and regimen due to financial hardship; R26.89 Other abnormalities of gait and mobility